=== PATIENT | male | born 1975 | race Caucasian/White ===

== ENCOUNTER 2017-04-18 17:34 | Emergency (ER) | payer SELFPAY ==
--- NOTE | 2017-04-18 19:10 | ER Document Report ---
HPI - HPI Pain Level: 5 Notes: Patient is 41-year-old male presents the ED complaining of neck stiffness and pain 2 days. Patient states that he feels a tightness in his neck along with occasional sharp pains. Twisting his neck worsens his discomfort. The pain does not radiate otherwise. Patient states he does lift heavy objects at work every day for the last 6 months. He does not know of any one incident that caused the pain initially he began noticing some pain in his neck on his drive home Monday afternoon.. Patient states that he has been having trouble sleeping because of the pain in his neck. He is still able to eat and drink without any difficulties otherwise. Patient states that he does have hypertension and diabetes which he takes metformin and lisinopril 4. Patient states he is a former smoker but denies any drug use. Patient denies any recent procedures/ injections into the neck or back. Patient denies any numbness/tingling, saddle anesthesia, muscle paralysis/weakness, urinary retention, or loss of control of bowel or bladder. He denies any fever, headache, URI, ear pain, tinnitus, dizziness, sore throat, dysphagia, chest pain, palpitations, syncope, cough, wheeze, shortness of breath, abdominal pain, nausea/vomiting/diarrhea, dysuria, hematuria, or rash. Denies any recent travel, sick contacts, recent illness. Patient states immunizations are up-to-date. - ROS Notes: REVIEW OF SYSTEMS: CONSTITUTIONAL : Denies fever, chills, or sweats. Denies recent illness. EENT: Denies eye, ear, throat, or mouth pain or symptoms. Denies nasal or sinus congestion or discharge. Denies throat, tongue, or mouth swelling or difficulty swallowing. CARDIOVASCULAR: Denies chest pain. Denies palpitations or racing or irregular heart beat. Denies ankle edema. RESPIRATORY: Denies cough, cold, or chest congestion. Denies shortness of breath, difficulty breathing, or wheezing. GASTROINTESTINAL: Denies abdominal pain or distention. Denies nausea, vomiting , or diarrhea. Denies blood in vomitus, stools, or per rectum. Denies black, tarry stools. Denies constipation. GENITOURINARY: Denies difficulty urinating, painful urination, burning, frequency, blood in urine, or discharge. MUSCULOSKELETAL: see hpi SKIN: Denies rash, lesions or sores. NEUROLOGICAL: Denies confusion or altered mental status. Denies passing out or loss of consciousness. Denies dizziness or lightheadedness. Denies headache. Denies weakness or paralysis or loss of use of either side. Denies problems with gait or speech. Denies sensory loss, numbness, or tingling. Denies seizures. PSYCHIATRIC: Denies anxiety or stress. Denies depression, suicidal ideation, or homicidal ideation. ALL OTHER SYSTEMS REVIEWED AND NEGATIVE. Dictation was performed using [employer] voice recognition software - DERM Skin Color: Normal Past Medical History - Social History Smoking Status: Former Smoker Family History: DM, Hypertension Patient has suicidal ideation: No Patient has homicidal ideation: No - Past Medical History Cardiac Medical History: Reports: Hx Hypercholesterolemia, Hx Hypertension Endocrine Medical History: Reports: Hx Diabetes Mellitus Type 1, Hx Diabetes Mellitus Type 2 Renal/ Medical History: Reports: Hx Kidney Stones. Denies: Hx Peritoneal Dialysis Psychiatric Medical History: Denies: Hx Depression Past Surgical History: Reports: Hx Cardiac Surgery - as an for "3 holes in heart", Hx Herniorrhaphy - Immunizations Hx Diphtheria, Pertussis, Tetanus Vaccination: No Vertical Provider Document - CONSTITUTIONAL Agree With Documented VS: Yes Notes: PHYSICAL EXAMINATION: GENERAL: Well-appearing, well-nourished and in no acute distress. HEAD: Atraumatic, normocephalic. Non-tender. EYES: Pupils equal round and reactive to light, extraocular movements intact, sclera anicteric, conjunctiva are normal. ENT: EAC clear b/l. TM's intact b/l without erythema, fluid, or perforation. Nares patent and without discharge. oropharynx clear without exudates. No tonsilar hypertrophy or erythema. Moist mucous membranes. No sinus tenderness. uvula midline. No palatine shift or tongue protrusion. NECK:supple without lymphadenopathy. +LROM to rotation, flexion, extension. + spasming and mild torticollis to the left levator scapula > Rt. + tenderness to the trapezius mm as well with spasming. No vertebral point tenderness. Kernig/brudzinski negative. No carotid bruits b/l. LUNGS: Breath sounds clear to auscultation bilaterally and equal. No wheezes rales or rhonchi. HEART: Regular rate and rhythm without murmurs, rubs, gallops. ABDOMEN: Soft, nontender, nondistended abdomen. No guarding, no rebound. No masses appreciated. Normal bowel sounds present. No CVA tenderness bilaterally. Musculoskeletal: UE's b/l: FROM to passive/active. Strength 5+/5. No focal deficits Extremities: No cyanosis, clubbing, or edema b/l. Peripheral pulses 2+. Capillary refill less than 3 seconds. NEUROLOGICAL: Cranial nerves grossly intact. Normal speech, normal gait. Normal sensory, motor exams. reflexes 2+ b/l. PSYCH: Normal mood, normal affect. SKIN: Warm, Dry, normal turgor, no rashes or lesions noted. - INFECTION CONTROL TRAVEL OUTSIDE OF THE [place] IN LAST 30 DAYS: No - RESPIRATORY O2 Sat by Pulse Oximetry: 99 Course - Re-evaluation Re-evalutation: 04/18/17 19:30 Heat pack applied to the neck and Toradol 15mg given IM 04/18/17 20:05 Patient is an afebrile, well-hydrated, 41-year-old male who presents to the ED with neck stiffness/muscle spasm, mild torticollis of the left side based on H& P today. Vitals are stable despite elevated blood pressure. PE otherwise unremarkable for any focal neurological deficits. Low suspicion for any acute glaucoma, temporal arteritis, meningitis, intracranial hemorrhage, ischemic stroke, meningitis, fracture, expanding/ruptured AAA, cauda equina syndrome, epidural mass lesion/abscess, herniated disc causing severe spinal stenosis, peritonsilar/pharyngeal abscess, other deep space infection, respiratory compromise, or other systemic infection at this time. Patient is aware that his condition can change from initial presentation and that he needs monitor symptoms closely for any acute changes. Patient H&P presents with low risk factors as he is under the age of 60, no recent procedures to the back, no illicit drug use, no illness/fever/injury. Patient's primary risk factor to be diabetes which is controlled with metformin per patient. Patient states that his symptoms did improve after the Toradol and heat pack placement. Sarahi Beckford NP also evaluate the patient and agreed with the musculoskeletal etiology. I will send him home with Voltaren gel, meloxicam, and baclofen to use as directed. Conservative measures otherwise for symptoms. Recheck with his PCM in 2-3 days. Return to ED with any worsening/concerning symptoms otherwise as reviewed in discharge. Patient is in agreement. - Vital Signs Vital signs: Temp Pulse Resp BP Pulse Ox 98.0 F 84 19 181/110 H 99 04/18/17 17:46 04/18/17 17:46 04/18/17 17:46 04/18/17 17:46 04/18/17 17:46 Discharge - Discharge Clinical Impression: Muscle spasm, Torticollis Condition: Stable Disposition: HOME, SELF-CARE Additional Instructions: Rest, Ice Tylenol/ibuprofen as needed Light stretches daily Strength exercises as able Moist heat and massage may help F/u with your PCP in 2-3 days for a recheck Consider consult(s) with Orthopedics/physical therapy/chiropractics for ongoing/ worsening symptoms Return to the ED with any worsening symptoms and/or development of fever, headache, chest pain, palpitations, syncope, shortness of breath, trouble breathing, abdominal pain, n/v/d, blood in stool/urine, loss of control of bowel /bladder, urinary retention, muscle weakness/paralysis, numbness/tingling, or other worsening symptoms that are concerning to you. Prescriptions: Baclofen [Baclofen 10 mg Tablet] 5 mg PO BID PRN #10 tablet PRN Reason: Diclofenac Sodium [Voltaren] 4 gm TP QID PRN #100 gel..gm. PRN Reason: Meloxicam 7.5 mg PO BID PRN #20 tablet PRN Reason: Forms: Elevated Blood Pressure Referrals: [facility] [Provider Group] - Follow up as needed
[2017-04-18] MEDS ORDERED: KETOROLAC TROMETHAMINE INJ/PF 30 MG/1 ML SDV IM ONE (19:15)
[2017-04-18 20:17] VITALS: BP 153/106
== END 2017-04-18 20:17 | disposition home or self-care (01) ==
LOC: ER 17:34
DX: M43.6 Torticollis (principal); M54.2 Cervicalgia; M62.838 Other muscle spasm; M62.830 Muscle spasm of back; E11.9 Type 2 diabetes mellitus without complications; I10 Essential (primary) hypertension; Z79.899 Other long term (current) drug therapy; Z79.84 Long term (current) use of oral hypoglycemic drugs; Z87.891 Personal history of nicotine dependence
CPT/HCPCS: 99283; 96372; J1885

== ENCOUNTER 2017-06-08 20:23 | Emergency (ER) | payer SELFPAY ==
[2017-06-08 22:07] LABS: ABSOLUTE BASOPHILS # (AUTO) 0.1 10^3/uL (0.0-0.2); ABSOLUTE EOSINOPHILS # (AUTO) 0.4 10^3/uL (0.0-0.6); ABSOLUTE LYMPHOCYTES (AUTO) 1.5 10^3/uL (0.5-4.7); ABSOLUTE MONOCYTES (AUTO) 0.7 10^3/uL (0.1-1.4); ABSOLUTE NEUT (AUTO) 6.1 10^3/uL (1.7-8.2); BASOPHILS % (AUTO) 0.7 % (0-2); EOSINOPHILS % (AUTO) 4.5 % (0-6); HEMATOCRIT 40.1 % (37.9-51.0); HEMOGLOBIN 14.2 g/dL (13.5-17.0); HGB HCT DIFFERENCE 2.5; LYMPHOCYTES % (AUTO) 17.5 % (13-45); MEAN CORPUSCULAR HEMOGLOBIN 29.1 pg (27.0-33.4); MEAN CORPUSCULAR HGB CONC 35.3 g/dL (32.0-36.0); MEAN CORPUSCULAR VOLUME 82 fl (80-97); MONOCYTES % (AUTO) 7.9 % (3-13); RED BLOOD COUNT 4.88 10^6/uL (4.35-5.55); RED CELL DISTRIBUTION WIDTH 14.8 % (11.5-14.0); SEGMENTED NEUTROPHILS % (AUTO) 69.4 % (42-78); WHITE BLOOD COUNT 8.7 10^3/uL (4.0-10.5)
[2017-06-08 22:25] LABS: ALANINE AMINOTRANSFERASE 35 U/L (21-72); ALBUMIN 3.9 g/dL (3.5-5.0); ALKALINE PHOSPHATASE 137 U/L (38-126); ANION GAP 12 (5-19); ASPARTATE AMINO TRANSFERASE 20 U/L (17-59); BILIRUBIN,DIRECT 0.4 mg/dL (0.0-0.4); BILIRUBIN,TOTAL 0.5 mg/dL (0.2-1.3); BLOOD UREA NITROGEN 23 mg/dL (7-20); CALCIUM 9.5 mg/dL (8.4-10.2); CARBON DIOXIDE 23 mmol/L (22-30); CHLORIDE 101 mmol/L (98-107); CREATININE RESULT 1.58 mg/dL (0.52-1.25); GLUCOSE 307 mg/dL (75-110); POTASSIUM 4.3 mmol/L (3.6-5.0); SODIUM 136.2 mmol/L (137-145); TOTAL PROTEIN 7.2 g/dL (6.3-8.2)
[2017-06-08 22:36] LABS: APPEARANCE,URINE CLEAR; BILIRUBIN,URINE NEGATIVE (NEGATIVE); GLUCOSE, URINE >=500 mg/dL (NEGATIVE); KETONES,URINE NEGATIVE (NEGATIVE); LEUKOCYTE ESTERASE,URINE NEGATIVE (NEGATIVE); NITRITE,URINE NEGATIVE (NEGATIVE); PROTEIN,URINE >=500 mg/dL (NEGATIVE); URINE SPECIFIC GRAVITY 1.029; UROBILINOGEN,URINE NEGATIVE mg/dL (<2.0)
[2017-06-08] MEDS ORDERED: METFORMIN HCL 500 MG TABLET PO ONE (23:47)
[2017-06-08] MEDS ORDERED: LISINOPRIL 10 MG TABLET PO ONE (23:47)
[2017-06-08] MEDS ORDERED: CEPHALEXIN 500 MG CAPSULE PO ONE (23:51)
--- NOTE | 2017-06-08 23:56 | ER Document Report ---
ED GI/ - General Chief Complaint: Flank Pain Stated Complaint: BACK PAIN,MOUTH PAIN Time Seen by Provider: 06/08/17 22:18 Notes: Patient is complaining of pain in the left upper lumbar back region for the past 3 days. 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 He says the pain is worse when he bends over or when he is walking a lot. Pain is relatively constant although it waxes and wanes at times. Had some diarrhea about 3 days ago for 1 day. No nausea or vomiting. Has had a slight cough with some wheezing. Cough causes him to have rib pains. Says he has had a history of a kidney stone in the past, but this pain does not feel like that pain at that time. Denies fever. Patient has a history of high blood sugar and high blood pressure. He is usually on lisinopril 10 mg a day and metformin 500 mg 3 times a day, but he has been out of his blood pressure medicine for a while, although he just ran out of his metformin today. He cannot afford a visit to a primary care physician. Patient also is complaining of painful swelling of the right lower gum next to a very large tooth with a large that appears to have broken off pretty much at the gumline. This is the adjacent gum is swollen and tender. No drainage. TRAVEL OUTSIDE OF THE [place] IN LAST 30 DAYS: No - Related Data Allergies/Adverse Reactions: Penicillins Allergy (Verified 04/18/17 17:46) Past Medical History - Social History Smoking Status: Former Smoker Chew tobacco use (# tins/day): No Frequency of alcohol use: None Drug Abuse: None Family History: Reviewed & Not Pertinent, DM, Hypertension Patient has suicidal ideation: No Patient has homicidal ideation: No - Past Medical History Cardiac Medical History: Reports: Hx Hypercholesterolemia, Hx Hypertension Endocrine Medical History: Reports: Hx Diabetes Mellitus Type 2 Renal/ Medical History: Reports: Hx Kidney Stones Past Surgical History: Reports: Hx Cardiac Surgery - as an for "3 holes in heart", Hx Herniorrhaphy - Immunizations Hx Diphtheria, Pertussis, Tetanus Vaccination: No Review of Systems - Review of Systems Notes: REVIEW OF SYSTEMS: CONSTITUTIONAL : Denies fever. EENT: Denies eye, ear, nose or mouth or throat pain or other symptoms. CARDIOVASCULAR: Denies chest pain. RESPIRATORY: Denies cough, chest congestion, or shortness of breath. GASTROINTESTINAL: Denies abdominal pain or nausea, vomiting, or diarrhea. GENITOURINARY: Denies difficulty or painful urinating, urinary frequency, blood in urine. MUSCULOSKELETAL: Denies back or neck pain. Denies joint pain or swelling. SKIN: Denies rash or skin lesions. NEUROLOGICAL: Denies LOC or altered mental status. Denies headache. Denies sensory loss or motor deficits. ALL OTHER SYSTEMS REVIEWED AND NEGATIVE. Physical Exam - Vital signs Vitals: Temp Pulse Resp BP Pulse Ox 98.7 F 89 16 175/110 H 97 06/08/17 21:17 06/08/17 21:17 06/08/17 21:17 06/08/17 21:17 06/08/17 21:17 Interpretation: Hypertensive - Notes Notes: PHYSICAL EXAMINATION: GENERAL: Well-appearing, in no acute distress. Blood pressure elevated but other vital signs normal. HEAD: Atraumatic, normocephalic. ENT: oropharynx clear without exudates. Moist mucous membranes. Tender gingiva around a lower right molar with a very large cavity, almost destroying the entire tooth. On the inner aspect, the tenderness of the gingiva spreads down towards the base of the tongue and there is some very slight swelling. There is nothing to suggest a peritonsillar abscess, or significant abscess of the tooth. There may be some gingival infection and I will put him on antibiotics but I do not think there is an abscess to drain at this point. NECK: Normal range of motion, supple. No significant soft tissue swelling. LUNGS: Breath sounds clear and equal bilaterally. HEART: Regular rate and rhythm without murmurs. ABDOMEN: Soft, nontender. No guarding or rebound. No masses. No bruits heard. BACK: Tender in the upper flank region on the left lumbar back. Tenderness is confined to the muscle region that left lank. EXTREMITIES: Normal range of motion without pain. NEUROLOGICAL: Normal speech, normal gait. Normal sensory, motor, and reflex exams. Awake, alert, and oriented x3. Cranial nerves normal. PSYCH: Normal mood, normal affect. SKIN: Warm, dry, no rashes. Course - Vital Signs Vital signs: Temp Pulse Resp BP Pulse Ox 98.7 F 89 16 188/127 H 96 06/08/17 21:17 06/08/17 21:17 06/08/17 21:17 06/08/17 23:30 06/08/17 23:30 - Laboratory Result Diagrams: 06/08/17 21:50 06/08/17 21:50 Laboratory results interpreted by me: 06/08/17 06/08/17 06/08/17 21:50 21:50 21:50 RDW 14.8 H Sodium 136.2 L BUN 23 H Creatinine 1.58 H Est GFR ( Amer) 59 L Est GFR (Non-Af Amer) 49 L Glucose 307 H Alkaline Phosphatase 137 H Urine Protein >=500 H Urine Glucose (UA) >=500 H Urine Blood SMALL H 06/09/17 00:36 Labs were reviewed and essentially normal. Discharge - Discharge Clinical Impression: Muscle strain of left upper back, Hypertension, Hyperglycemia, Dental infection Condition: Stable Disposition: HOME, SELF-CARE Additional Instructions: LOW BACK PAIN: Three out of every four people will have an episode of disabling back pain during their lifetime. Most commonly the pain is due to straining of the muscles and ligaments in the low back. Usual treatment includes: (1) Rest on a firm surface. Avoid lying on your stomach. (2) Ice pack the painful area. After a few days, gentle heat may be used intermittently to relax the area, or ice packs can be continued. (3) Medication may be needed -- muscle relaxers and antiinflammatory medicines are commonly used. (4) As the back improves, exercises are prescribed to strengthen the back and abdominal muscles. Your doctor will advise you on the proper care for your back at each stage in your recovery. You may be better in a few days -- or healing may take several weeks. If new symptoms of a "herniated disc" (radiation of pain, numbness, or tingling down the back of the leg or weakness in the leg) occur, you should be re-examined. Further testing may be necessary. Muscle Strain You have strained a muscle -- torn the fibers within the muscle. This often occurs with strenuous exertion, or during an injury that suddenly stretches the muscle. The seriousness of a strain varies. Some strains heal within days, others cause problems for months. X-rays cannot show a muscle strain. X-rays are taken only if symptoms suggest that a fracture could be present. The usual treatment of a muscle strain is rest and ice packs. Sometimes, a sling, splint, or crutches may be necessary to rest the muscle. The muscle can be used again once pain subsides. Severe strains require a special exercise and stretching program to prevent permanent stiffness and disability. Your doctor will advise you if this will be necessary. Call the doctor immediately if pain or swelling becomes severe, or if numbness or discoloration develop. MUSCLE RELAXERS: Muscle relaxing medications are usually prescribed for acute muscle spasm or injury to the neck and back. They are often combined with antiinflammatory pain medication for increased relief. You may stop the muscle relaxer when the pain and stiffness have improved. Start the medication again if spasms recur. Muscle relaxers may cause drowsiness, especially with the first dose. Do not operate machinery or drive while under the effects of the medication. Most muscle relaxers last up to 24 hours. Do not combine the medication with alcohol. WARM PACKS: After approximately two days, apply gentle heat (such as a heating pad or hot water bottle) for about 20 to 30 minutes about every two hours -- at least four times daily. Warmth and elevation will help you make a more rapid recovery , and will ease the pain considerably. Do not use HOT heat, and never apply heat for longer than 30 minutes. The continuous heat can invisibly damage skin and muscles -- even when no burn is seen on the surface. Damaged muscles can make you MORE sore. HIGH BLOOD PRESSURE REQUIRING TREATMENT: Your blood pressure is high. This is called "hypertension." Today's reading was 175/110 (normal is less than 140/90). Your history and exam suggest that this is not a temporary problem. You need treatment of your blood pressure. If left untreated, high blood pressure greatly increases your risk of heart attack and stroke. Please don't ignore this problem. If you have blood pressure medicine but aren't using it regularly, start taking it again. Some simple things you can do to help are: Get some aerobic exercise for at least 20 minutes on a daily basis. (See your doctor before beginning any new exercise program.) Eat a low-fat diet. Lose excess weight. Avoid salty foods and avoid adding salt to any of the foods you eat. Avoid diet pills, decongestants, "energizing" herbs, and other medicines that elevate blood pressure. There are many different medicines that treat blood pressure. If your medication causes unpleasant side effects, call your doctor. There are others you can try. Treating hypertension is a life-long investment in your health. ANGIOTENSIN CONVERTING ENZYME INHIBITOR MEDICATION: "LISS inhibitor" drugs are used to lower high blood pressure (or to reduce the "work" of the heart in patients with heart failure). These drugs block an enzyme that makes your blood vessels constrict and makes you retain salt. The result is lower blood pressure. LISS inhibitors cause few side effects. The most common side effect is a dry nagging cough. Occasionally, lightheadedness may occur while you get used to the medicine. Some patients may retain extra potassium (this is a problem if you are taking potassium supplements, potassium-containing salt substitutes, or a potassium-retaining drug such as triamterene, spironolactone, or amiloride) . If you are taking lithium, the lithium level must be rechecked after starting an LISS inhibitor. LISS inhibitors should NOT be used during . Contact the doctor or return if you develop severe lightheadedness, wheeze , weakness, palpitations or other new symptoms. HYPERGLYCEMIA (HIGH BLOOD SUGAR): You have an abnormally high blood sugar. Not all high blood sugar requires long-term treatment. High blood sugar can be due to medications, , or the stress of illness. (These cases are "borderline diabetes.") If the doctor feels your high blood sugar might resolve with time, you may not require treatment now. It's very important that you follow through, to see if the blood sugar returns to normal levels. Uncontrolled high blood sugar leads to early heart disease, strokes, nerve damage, eye damage, and kidney damage. Call the physician if there is faintness, excess sleepiness, or very rapid breathing. DIABETES: You have an abnormally high blood sugar, suspicious for diabetes. Not all high blood sugar requires long-term treatment. High blood sugar can be due to medications, , or the stress of illness. (These cases are "borderline diabetes.") If the doctor feels your high blood sugar might get better with time, you may not require treatment now. It's very important that you follow through. Uncontrolled high blood sugar leads to early heart disease, strokes, nerve damage, eye damage, and kidney damage. All diabetics should follow a diet designed to control the blood sugar. Overweight diabetics should exercise regularly and lose weight. If this is not sufficient to control the blood sugar, pills or insulin shots are necessary. Younger people who develop diabetes almost always require insulin daily. Home testing of blood sugars or urine sugar is required. Diabetic teaching is available to help you figure insulin doses and monitor the blood sugar. Call the physician if there is faintness, excess sleepiness, or very rapid breathing. If hypoglycemia (LOW blood sugar) develops, symptoms are shakiness, weakness, sweating, and confusion. In this case, you should eat or drink something with sugar at once. ORAL HYPOGLYCEMIC MEDICATION: Oral hypoglycemics are medicines that lower blood sugar in diabetics. They are not effective for younger diabetics who require insulin. Some brands are tolbutamide, Orinase, glipizide, Glucotrol, glyburide, DiaBeta, Glynase, and Micronase. Some medications can increase or decrease the effect of Diabinese. Examples are Clofibrate (Atromid-S), phenylbutazone (Butazolidin), aspirin, sulfonamides, Coumadin, allopurinol (Zyloprim), probenecid (Benemid), acetazolamide (Diamox), beta blockers, steroids, estrogens, Indocin, INH, Levothyroxine, nicotinic acid, Diflucan, Dilantin, and thiazide diuretics. Be sure your doctor knows all the medicines you take, and talk to your doctor before making any changes in your medicines. If you develop symptoms of shakiness, sweats, and lightheadedness, your blood sugar may have gone too low. Eat or drink a small amount of sweet food. If symptoms don't go away, call your doctor. Glucophage (Metformin hydrochloride) Glucophage is used to treat diabetes. It helps insulin move sugar from your blood stream into your cells. It also slows production of new blood sugar. Glucophage can be combined with another type of diabetes pill or with insulin injections. Glucophage should NOT be used by patients, true insulin-dependent (juvenile) diabetics, or those prone to acidosis (severe kidney disease, alcoholism, severe heart failure). You MUST NOT receive iodine-containing x-ray dye while taking Glucophage. The medicine must be stopped 2 days before the test. Be certain your doctor is aware you are taking Glucophage before undergoing IVP, angiograms, or other x- rays that require IV injection of dye. Glucophage commonly causes decreased appetite. Some patients may have nausea, vomiting, or diarrhea. If the side effects are severe, call your doctor. Glucophage will not cause hypoglycemia (low blood sugar) when used alone. Some patients using diabetes pills or insulin may experience symptoms of hypoglycemia (flushing, sweats, racing heart, lightheadedness). Eat or drink something sweet. Contact your doctor for further instructions. You may need to reduce the dose of insulin or of the other diabetes pill. TOOTHACHE: Your pain is due to dental decay. The tooth must be repaired in order for you to feel better. You will, therefore, be referred to a dentist. We do not have dentists on the staff at [facility]. Severe swelling or drainage around a tooth usually means a dental abscess. This also requires evaluation and treatment by the dentist, but antibiotics may be prescribed while awaiting dental treatment. You should be rechecked immediately if you develop major swelling of the face, increasing pain, a lump in the jaw or gums, headache, difficulty swallowing, or fever. Cephalexin The antibiotic you've been prescribed is a member of the cephalosporin class. This type of antibiotic covers a wide variety of infections, including those of the skin, lungs, and urinary tract. It's useful for staph infections. This antibiotic is slightly similar to the penicillin family. In rare cases , a person who is allergic to penicillin will also be allergic to this medication. If you have had a severe allergic reaction to penicillin, and have not taken this antibiotic since that time, notify your doctor. Antibiotics which cover many germs ("broad spectrum" antibiotics) are more likely to cause diarrhea or "yeast" infections. Women prone to vaginal yeast problems may suffer an attack after taking this antibiotic. In infants, oral thrush (white spots "stuck" on the cheek) or yeast diaper rash may result. See your doctor if these problems occur. Call at once if you develop itching, hives , shortness of breath, or lightheadedness. FOLLOW-UP CARE: You have been referred for follow-up care to the dentists listed below. Call the dentists office for an appointment as you were instructed or within the next two days. If you experience worsening or a significant change in your symptoms, notify the physician immediately or return to the Emergency Department at any time for re-evaluation. [facility] [address] [place], [place] mornings, by appointment [facility] [address] [place] [address] [facility] [address] [facility] [address] [facility] [place] [facility] [address] [email or web address] [address] [place] [address] Monday- 8:00am to 5:00 pm Will see patients from other [facility]. Charges based on income and family size and accepts Medicare, Medicaid, and Insurances Will pull molars [facility] [id number] Hours of Operation 8:00 am - 4:30 pm weekdays The following dental offices accept Medicaid: [facility] Dr. Mcmillan Dr. Petty Dr. Pozo Dr. Parsons Campos Panda Lutsavage, and [place] [facility] Dr. Pacheco ([place]) Dr. Serna ([place]) [facility] Drs. Bhatt and Jorge Luis ([place]) Dr. Bragg ([place]) [facility] Dr. Soler ([place]) Drs. Lundy and ([place]) Medicaid Care Line Prescriptions: Cephalexin Monohydrate [Keflex 500 mg Capsule] 500 mg PO Q8H 7 Days capsule Lisinopril 10 mg PO DAILY #30 tablet Metformin HCl [Glucophage 500 mg Tablet] 500 mg PO TID #90 tablet Methocarbamol [Robaxin 500 mg Tablet] 1,000 mg PO QID #40 tablet Forms: Return to Work
[2017-06-09 00:51] VITALS: BP 179/110
== END 2017-06-09 00:51 | disposition home or self-care (01) ==
LOC: ER 20:23
DX: S29.012A Strain of muscle and tendon of back wall of thorax, initial encounter (principal); I10 Essential (primary) hypertension; R73.9 Hyperglycemia, unspecified; K04.7 Periapical abscess without sinus; R10.9 Unspecified abdominal pain; M54.9 Dorsalgia, unspecified; K08.89 Other specified disorders of teeth and supporting structures; Z87.891 Personal history of nicotine dependence; R22.0 Localized swelling, mass and lump, head; X58.XXXA Exposure to other specified factors, initial encounter
CPT/HCPCS: 36415; 80053; 81001; 85025; 99284

== ENCOUNTER 2017-07-19 18:26 | Emergency (ER) | payer SELFPAY ==
[2017-07-19 18:35] VITALS: BP 180/117
--- NOTE | 2017-07-19 19:19 | ER Document Report ---
ED ENT - General Chief Complaint: Cold Symptoms Stated Complaint: COUGH, HEADACHE Time Seen by Provider: 07/19/17 18:43 Mode of Arrival: Ambulatory Information source: Patient Notes: 42-year-old male presents to ED for cough cold congestion headache and body aches for week. He states that the he has had some green phlegm and took Tylenol thousand milligrams this morning at 10 and 800 of ibuprofen at 1600. He has a history of blood pressure and diabetes and is run out of his high blood pressure medicine and his metformin. He states [facility]. We attempted to call [facility] to get the doses but they said he does not have any active meds there so I cannot write prescriptions that I do not know the doses for patient has been instructed to call [facility] first thing in the morning and get his prescriptions ordered as he needs to take his blood pressure medicine. TRAVEL OUTSIDE OF THE [place] IN LAST 30 DAYS: No - HPI Patient complains to provider of: Nose problem, Throat problem Onset: Last week Onset/Duration: Gradual Quality of pain: Achy Severity: Moderate Pain Level: 4 Context: Recent Illness Location of pain: Nose, Sinus, Throat Associated symptoms: Cough, Headache, Runny nose, Sinus pain, Sinus drainage, Sore throat Similar symptoms previously: Yes Recently seen / treated by doctor: No - Related Data Allergies/Adverse Reactions: Penicillins Allergy (Verified 07/19/17 18:30) Past Medical History - General Information source: Patient - Social History Smoking Status: Former Smoker Cigarette use (# per day): No Chew tobacco use (# tins/day): No Smoking Education Provided: No Frequency of alcohol use: None Drug Abuse: None 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 Lives with: Family Family History: Arthritis, CVA, DM, Hypertension, Malignancy Patient has suicidal ideation: No Patient has homicidal ideation: No - Past Medical History Cardiac Medical History: Reports: Hx Hypercholesterolemia, Hx Hypertension Endocrine Medical History: Reports: Hx Diabetes Mellitus Type 2 Renal/ Medical History: Reports: Hx Kidney Stones Malignancy Medical History: Reports None GI Medical History: Reports: None Musculoskeltal Medical History: Reports None Skin Medical History: Reports None Traumatic Medical History: Reports: None Infectious Medical History: Reports: None Past Surgical History: Reports: Hx Cardiac Surgery - as an infant for "3 holes in heart", Hx Inguinal Hernia - Immunizations Hx Diphtheria, Pertussis, Tetanus Vaccination: No Review of Systems - Review of Systems Constitutional: Recent illness EENT: Nose discharge, Sinus discharge, Throat pain Cardiovascular: No symptoms reported Respiratory: Cough Gastrointestinal: No symptoms reported Genitourinary: No symptoms reported Male Genitourinary: No symptoms reported Musculoskeletal: No symptoms reported Skin: No symptoms reported Hematologic/Lymphatic: No symptoms reported Neurological/Psychological: No symptoms reported -: Yes All other systems reviewed and negative Physical Exam - Vital signs Vitals: Temp Pulse Resp BP Pulse Ox 98.8 F 97 18 180/117 H 98 07/19/17 18:30 07/19/17 18:30 07/19/17 18:30 07/19/17 18:30 07/19/17 18:30 Interpretation: Normal - General General appearance: Appears well, Alert - HEENT Head: Normocephalic, Atraumatic Eyes: Normal Pupils: PERRL Ears: Normal External canal: Normal Tympanic membrane: Normal Sinus: Tenderness Nasal: Purulent discharge, Swelling Mouth/Lips: Normal Mucous membranes: Normal Pharynx: Post nasal drainage Neck: Normal - Respiratory Respiratory status: No respiratory distress Chest status: Nontender Breath sounds: Normal Chest palpation: Normal - Cardiovascular Rhythm: Regular Heart sounds: Normal auscultation Murmur: No - Abdominal Inspection: Normal Distension: No distension Bowel sounds: Normal Tenderness: Nontender Organomegaly: No organomegaly - Back Back: Normal, Nontender - Extremities General upper extremity: Normal inspection, Nontender, Normal color, Normal ROM , Normal temperature General lower extremity: Normal inspection, Nontender, Normal color, Normal ROM , Normal temperature, Normal weight bearing. No: Renard's sign - Neurological Neuro grossly intact: Yes Cognition: Normal Orientation: AAOx4 Darren Coma Scale Eye Opening: Spontaneous [place] Coma Scale Verbal: Oriented Darren Coma Scale Motor: Obeys Commands Darren Coma Scale Total: 15 Speech: Normal Motor strength normal: LUE, RUE, LLE, RLE Sensory: Normal - Psychological Associated symptoms: Normal affect, Normal mood - Skin Skin Temperature: Warm Skin Moisture: Dry Skin Color: Normal Course - Re-evaluation Re-evalutation: 07/19/17 19:34 Attempted to call [facility] to get medications ordered for patient for his diabetes and pressure. They do not have a list of what medications and doses he is on. Patient was instructed to call [facility] first thing in the morning to get his medications called into the pharmacy as he needs to not be off of his medications. Patient instructed to not take ibuprofen but only take Tylenol as ibuprofen can raise his blood pressure. - Vital Signs Vital signs: Temp Pulse Resp BP Pulse Ox 98.8 F 97 18 180/117 H 98 07/19/17 18:30 07/19/17 18:30 07/19/17 18:30 07/19/17 18:30 07/19/17 18:30 Discharge - Discharge Clinical Impression: URI (upper respiratory infection) Qualifiers: URI type: unspecified URI Qualified Code(s): J06.9 - Acute upper respiratory infection, unspecified Condition: Stable Disposition: HOME, SELF-CARE Instructions: Family Physicians / Practices Additional Instructions: UPPER RESPIRATORY ILLNESS: You have a viral infection of the respiratory passages -- a "cold." This common infection causes nasal congestion, drainage, and often sore throat and cough. It is highly contagious. The disease usually lasts about 10 to 14 days. There is no "cure" for the viral infection -- it must run its course. If there is a complication, such as bacterial infection in the nose, sinuses, middle ear, or bronchial tubes, antibiotics may be required. The antibiotics won't affect the virus. Drink plenty of fluids. A humidifier may help. An expectorant medication or decongestant may make you more comfortable. Use acetaminophen or ibuprofen for fever or aches. See the doctor if fever persists over two days, if there is any significant worsening of your symptoms, or if you simply fail to improve as expected. COUGH-SUPPRESSANT & EXPECTORANT MEDICATION: You are to use a cough medication as needed for relief of symptoms. This medicine is a combination of an expectorant (to make the mucous thinner and more easily "coughed up") and a cough suppressant (to reduce the frequency of coughing). The cough-suppressant medicine is related to narcotics. You may experience mild nausea and sleepiness. Some patients who are very sensitive to narcotics may have stomach pain from this medicine. Taking the medicine with food reduces these side effects. Do not drive or work with machinery until you know how this medicine affects you. The expectorant should have no side effects. Iodine-containing expectorants (such as organidin) should not be taken by persons with active thyroid disease unless approved by your doctor. Call the doctor if you develop shortness of breath, hives, rash, itching, lightheadedness, or severe nausea and vomiting. USE OF ACETAMINOPHEN (Tylenol): Acetaminophen may be taken for pain relief or fever control. It's much safer than aspirin, offering a wider range of "safe" dosages. It is safe during . Some brand names are Tylenol, Panadol, Datril, Anacin 3, Tempra, and Liquiprin. Acetaminophen can be repeated every four hours. The following are maximum recommended dosages: >89 pounds or adults 650 mg to 900 mg Acetaminophen can be repeated every four hours. Maximum dose not to exceed 4000 mg a day. Salt and soda solution 1 quart of water 1 tablespoon of salt 1 teaspoon of baking soda Mixed 3 ingredients together and boil for 1 minute Placed in a covered quart jar Use 1/2 ounce of cold solution to gargle 3 times a day FOLLOW-UP CARE: If you have been referred to a physician for follow-up care, call the physician s office for an appointment as you were instructed or within the next two days. If you experience worsening or a significant change in your symptoms, notify the physician immediately or return to the Emergency Department at any time for re-evaluation. Forms: Elevated Blood Pressure, Return to Work
== END 2017-07-19 19:29 | disposition home or self-care (01) ==
LOC: ER 18:26
DX: J06.9 Acute upper respiratory infection, unspecified (principal); R05 Cough; R51 Headache; R09.81 Nasal congestion; M79.1 Myalgia; Z87.891 Personal history of nicotine dependence
CPT/HCPCS: 99283

== ENCOUNTER 2017-09-18 08:24 | Observation (INO) | payer SELFPAY ==
--- NOTE | 2017-09-18 08:50 | ER Document Report ---
ED General - General Chief Complaint: Vomiting Stated Complaint: VOMITING Time Seen by Provider: 09/18/17 08:40 TRAVEL OUTSIDE OF THE [place] IN LAST 30 DAYS: No - HPI Context: 42-year-old male history of diabetes, hypertension and hyperlipidemia presents today with complaints of coughing, nausea vomiting diarrhea and left lower abdominal pain started last night. Patient states that he ate a potato salad and noticed he was having diarrhea now or later. Patient is noncompliant with his medications, has not seen a PCP in over a year. Denies any fevers or chills. Reports subtle chest pain. Reports pain is diffuse but worse than left lower quadrant. Pain is 6 out of 10, sharp and throbbing. Denies any trauma to abdomen. Reports left flank pain, history of renal calculi. Has not tried any [id number] medications. Worse with time, nothing is better. Patient states he been on his blood pressure for "a while". Denies any rashes. - Related Data Allergies/Adverse Reactions: Penicillins Allergy (Verified 09/18/17 08:26) Past Medical History - General Information source: Patient - Social History Smoking Status: Current Every Day Smoker Family History: Arthritis, CVA, DM, Hypertension, Malignancy - Past Medical History Cardiac Medical History: Reports: Hx Hypercholesterolemia, Hx Hypertension Endocrine Medical History: Reports: Hx Diabetes Mellitus Type 1, Hx Diabetes Mellitus Type 2 Renal/ Medical History: Reports: Hx Kidney Stones. Denies: Hx Peritoneal Dialysis Psychiatric Medical History: Denies: Hx Depression Past Surgical History: Reports: Hx Cardiac Surgery - as an infant for "3 holes in heart", Hx Herniorrhaphy, Hx Inguinal Hernia - Immunizations Hx Diphtheria, Pertussis, Tetanus Vaccination: No Review of Systems - Review of Systems Constitutional: See HPI EENT: No symptoms reported Cardiovascular: Chest pain Respiratory: No symptoms reported, Cough Gastrointestinal: No symptoms reported, See HPI, Abdominal pain, Diarrhea, Nausea, Vomiting, Poor fluid intake. denies: Abdomen distended, Constipation, Blood streaked bowels, Blood in vomit, Black stools, Rectal bleeding, Last bowel movement, Fecal incontinence Genitourinary: No symptoms reported, Flank pain Male Genitourinary: No symptoms reported Musculoskeletal: No symptoms reported Skin: No symptoms reported Hematologic/Lymphatic: No symptoms reported Neurological/Psychological: No symptoms reported -: Yes All other systems reviewed and negative Physical Exam - Vital signs Vitals: Temp Pulse Resp BP Pulse Ox 98.3 F 108 H 16 178/123 H 98 09/18/17 08:29 09/18/17 08:29 09/18/17 08:29 09/18/17 08:29 09/18/17 08:29 Interpretation: Normal - General In distress: None - HEENT Head: Open wounds - Respiratory Respiratory status: No respiratory distress Chest status: Nontender Breath sounds: Normal Chest palpation: Normal - Cardiovascular Rhythm: Tachycardia Heart sounds: Normal auscultation Murmur: No Normal capillary refill: Yes - Abdominal Inspection: Normal Tenderness: Tender - LLQ mostly, but noted diffusee abd pain - Back Back: Normal, CVA tenderness - on left - Neurological Neuro grossly intact: Yes Cognition: Normal - Psychological Associated symptoms: Normal affect - Skin Skin Temperature: Warm Skin Moisture: Dry Skin Color: Normal Course - Re-evaluation Re-evalutation: consulted with Dr. Lopez about admission for leukocytosis, acute renal failure with tachycardia. Also patient has been noncompliant with medications as he has not had a primary care provider in over a year. Will admit inpatient on telemetry to manage acute renal failure and further investigate source of leukocytosis. 09/18/17 12:34 - Vital Signs Vital signs: Temp Pulse Resp BP Pulse Ox 98.3 F 107 H 16 151/95 H 98 09/18/17 08:29 09/18/17 09:55 09/18/17 08:29 09/18/17 09:55 09/18/17 08:29 - Laboratory Result Diagrams: 09/18/17 09:20 09/18/17 10:49 Laboratory results interpreted by me: 09/18/17 09/18/17 09/18/17 08:55 09:20 10:49 WBC 18.0 H RDW 14.6 H Seg Neuts % (Manual) 91 H Band Neutrophils % 2 L Lymphocytes % (Manual) 5 L Monocytes % (Manual) 2 L Abs Neuts (Manual) 16.7 H BUN 26 H Creatinine 1.60 H Est GFR ( Amer) 58 L Est GFR (Non-Af Amer) 48 L Glucose 204 H Creatine Kinase 181 H Urine Protein >=500 H Urine Glucose (UA) >=500 H Urine Blood SMALL H - Diagnostic Exam Abdominal/Pelvis Type of test: CT scan without contrast - nad per rad Findings: Nml/NAD - Noted renal calculi that were nonobstructive, no hydronephrosis seen bilaterally - EKG Interpretation by Me Rate: Tachycardia Rhythm: NSR Discharge - Discharge Clinical Impression: ARF (acute renal failure) Qualifiers: Acute renal failure type: unspecified Qualified Code(s): N17.9 - Acute kidney failure, unspecified Condition: Stable Disposition: ADMITTED INPATIENT Admitting Provider: Hospitalist - katey Unit Admitted: Telemetry Additional Instructions: pt is admitted
[2017-09-18] MEDS ORDERED: NORMAL SALINE 1000 ML 1,000 ML IV PRN (08:52)
[2017-09-18] MEDS ORDERED: ONDANSETRON HCL INJ/PF 4 MG/2 ML SDV IV ONE (08:54)
[2017-09-18] MEDS ORDERED: HYDRALAZINE HCL INJ/PF 20 MG/1 ML SDV IV ONE (08:54)
[2017-09-18 09:22] LABS: APPEARANCE,URINE SLIGHTLY-CLOUDY; BILIRUBIN,URINE NEGATIVE (NEGATIVE); GLUCOSE, URINE >=500 mg/dL (NEGATIVE); KETONES,URINE NEGATIVE (NEGATIVE); LEUKOCYTE ESTERASE,URINE NEGATIVE (NEGATIVE); NITRITE,URINE NEGATIVE (NEGATIVE); PROTEIN,URINE >=500 mg/dL (NEGATIVE); URINE SPECIFIC GRAVITY 1.028; UROBILINOGEN,URINE NEGATIVE mg/dL (<2.0)
--- NOTE | 2017-09-18 09:40 | RADIOLOGY REPORT (SQ) ---
EXAM DESCRIPTION: CHEST PA/LAT COMPLETED DATE/TIME: 09/18/2017 8:59 am REASON FOR STUDY: HTN, CP COMPARISON: Two-view chest 10/26/2014 EXAM PARAMETERS: NUMBER OF VIEWS: two views TECHNIQUE: Digital Frontal and Lateral radiographic views of the chest acquired. RADIATION DOSE: NA LIMITATIONS: none FINDINGS: LUNGS AND PLEURA: No opacities, masses or pneumothorax. No pleural effusion. MEDIASTINUM AND HILAR STRUCTURES: No masses or contour abnormalities. HEART AND VASCULAR STRUCTURES: Heart normal size. No evidence for failure. BONES: No acute findings. HARDWARE: None in the chest. OTHER: No other significant finding. IMPRESSION: NO SIGNIFICANT RADIOGRAPHIC FINDING IN THE CHEST. TECHNICAL DOCUMENTATION: JOB ID: [id number] [employer]- All Rights Reserved
[2017-09-18 09:44] LABS: HEMATOCRIT 43.7 % (37.9-51.0); HEMOGLOBIN 15.3 g/dL (13.5-17.0); HGB HCT DIFFERENCE 2.2; MEAN CORPUSCULAR HEMOGLOBIN 28.2 pg (27.0-33.4); MEAN CORPUSCULAR HGB CONC 35.1 g/dL (32.0-36.0); MEAN CORPUSCULAR VOLUME 81 fl (80-97); RED BLOOD COUNT 5.43 10^6/uL (4.35-5.55); RED CELL DISTRIBUTION WIDTH 14.6 % (11.5-14.0)
--- NOTE | 2017-09-18 10:10 | RADIOLOGY REPORT (SQ) ---
EXAM DESCRIPTION: CT ABD/PELVIS NO ORAL OR IV COMPLETED DATE/TIME: 09/18/2017 9:54 am REASON FOR STUDY: L sided abd pain, +v/d, +left flank pain, hx stone COMPARISON: CT abdomen pelvis 08/16/2015 Abdominal ultrasound 06/30/2016 TECHNIQUE: CT scan of the abdomen and pelvis performed without intravenous or oral contrast. Images reviewed with lung, soft tissue, and bone windows. Reconstructed coronal and sagittal MPR images revi ewed. All images stored on PACS. All CT scanners at this facility use dose modulation, iterative reconstruction, and/or weight based d osing when appropriate to reduce radiation dose to as low as reasonably achievable (ALARA). [facility]: Dose Right [facility]: CareDose [facility]: Dose Right [facility]: Teradose 4D [facility]: Clarity RADIATION DOSE: CT Rad equipment meets quality standard of care and radiation dose reduction techniq ues were employed. CTDIvol: 15.4 mGy. DLP: 891 mGy-cm.mGy. LIMITATIONS: None. FINDINGS: LOWER CHEST: No significant findings. No nodules or infiltrates. NON-CONTRASTED LIVER, SPLEEN, ADRENALS: Evaluation limited by lack of IV contrast. No identified sign ificant masses. Fatty liver with focal gallbladder fossa sparing PANCREAS: No masses. No peripancreatic inflammatory changes. GALLBLADDER: No identified stones by CT criteria. No inflammatory changes to suggest cholecystitis. RIGHT KIDNEY AND URETER: No suspicious masses. Assessment limited by lack of IV contrast. There are multiple less than 5 mm intrarenal nonobstructive stones. No ureteral calculi. No hydronephrosis or hydroureter. LEFT KIDNEY AND URETER: No suspicious masses. Assessment limited by lack of IV contrast. There are multiple less than 5 mm intrarenal nonobstructive stones. No ureteral calculi. No hydronephrosis o r hydroureter. AORTA AND RETROPERITONEUM: No aneurysm. No retroperitoneal masses or adenopathy. BOWEL AND PERITONEAL CAVITY: No obvious masses or inflammatory changes. No free fluid. APPENDIX: Normal. PELVIS, BLADDER, AND ABDOMINAL WALL:No abnormal masses. No free fluid. Bladder normal. No calculi in the distal right or left ureter. No bladder stones. Tiny fat containing umbilical hernia BONES: No significant findings. OTHER: No other significant finding. IMPRESSION: No CT evidence of obstructive urinary calculi. No hydronephrosis or hydroureter. Multiple intrarenal nonobstructive stones bilaterally. No ureteral calculi. Fatty liver COMMENT: Quality ID # [id number]: Final reports with documentation of one or more dose reduction techniques (e.g., Automated exposure control, adjustment of the mA and/or kV according to patient size, use of iterative reconstruction technique) TECHNICAL DOCUMENTATION: JOB ID: [id number] [employer]- All Rights Reserved
[2017-09-18 10:21] LABS: BAND NEUTROPHILS % (MANUAL) 2 % (3-5); BASOPHILS % (MANUAL) 0 % (0-2); EOSINOPHILS % (MANUAL) 0 % (0-6); LYMPHOCYTES % (MANUAL) 5 % (13-45); TOTAL CELLS COUNTED 100
[2017-09-18 10:22] LABS: ANISOCYTOSIS SLIGHT; TOXIC GRANULATION SLIGHT; TOXIC VACUOLATION PRESENT
[2017-09-18] MEDS ORDERED: ACETAMINOPHEN 325 MG TABLET PO ONE (10:53)
[2017-09-18 11:30] LABS: ALANINE AMINOTRANSFERASE 47 U/L (21-72); ALKALINE PHOSPHATASE 115 U/L (38-126); ANION GAP 11 (5-19); ASPARTATE AMINO TRANSFERASE 24 U/L (17-59); BILIRUBIN,DIRECT 0.2 mg/dL (0.0-0.4); BILIRUBIN,TOTAL 0.5 mg/dL (0.2-1.3); BLOOD UREA NITROGEN 26 mg/dL (7-20); CARBON DIOXIDE 23 mmol/L (22-30); CHLORIDE 106 mmol/L (98-107); CREATINE KINASE 181 U/L (55-170); GLUCOSE 204 mg/dL (75-110); LIPASE 137.8 U/L (23-300); POTASSIUM 4.7 mmol/L (3.6-5.0); SODIUM 140.1 mmol/L (137-145); TOTAL PROTEIN 7.2 g/dL (6.3-8.2)
--- NOTE | 2017-09-18 13:01 | EKG REPORT ---
SEVERITY:- ABNORMAL ECG - SINUS TACHYCARDIA LEFT VENTRICULAR HYPERTROPHY BORDERLINE PROLONGED QT INTERVAL : Confirmed by: Henrik Finnegan MD 18-Sep-2017 13:00:39
[2017-09-18] MEDS ORDERED: NORMAL SALINE 1000 ML 1,000 ML IV ONE (13:26)
[2017-09-18] MEDS ORDERED: ENOXAPARIN SODIUM INJ 40 MG/0.4 ML DISP.SYRIN SUBCUT ONE (14:30)
[2017-09-18] MEDS ORDERED: INFLUENZA ADLT QUAD (36MOS+) 2017-18 VAC 0.5 ML SYR IM PRN (14:33)
[2017-09-18] MEDS ORDERED: GLUCAGON,HUMAN RECOMB 1 MG INJ IM PRN (16:03)
[2017-09-18] MEDS ORDERED: DEXTROSE 40% GEL 15 GM TUBE PO PRN ×2 (16:03)
[2017-09-18] MEDS ORDERED: DEXTROSE 50%-WATER 25 GM/50 ML DISP.SYRIN IV PRN ×2 (16:03)
[2017-09-18] MEDS ORDERED: HYDRALAZINE HCL INJ/PF 20 MG/1 ML SDV IV PRN (16:04)
[2017-09-18] MEDS ORDERED: ACETAMINOPHEN 325 MG TABLET PO PRN (16:37)
[2017-09-18] MEDS: TRAMADOL HCL 50 MG TABLET PO PRN (17:03)
[2017-09-18] MEDS: INSULIN REG, HUMAN 100 UNIT/ML 3 ML VIAL (PYX) SUBCUT PRN ×2 (17:37→21:49)
--- NOTE | 2017-09-18 17:50 | PDOC H&P ---
History of Present Illness Admission Date/PCP: 09/18/17 12:43 History of Present Illness: ISA LINDQUIST is a 42 year old male with a past medical history of diabetes, dyslipidemia, and hypertension who presents to the service with nausea vomiting and diarrhea for 24 hours. The patient states he started throwing up this morning. The diarrhea has been going on since yesterday. He has a sick daughter at home who also has diarrhea. He denies any blood in the emesis or in the stool. He denies any chest pain or shortness of breath. He did have some abdominal pain before he came in but this seems to have resolved. He complains of back pain and left flank pain. He is given ice chips down in the ED and feels that he is tolerating that okay. Thus far in the emergency room his received a 1 L bolus as well as antiemetics. The patient also received a dose of hydralazine to control his blood pressure. Right now the bedside the patient feels a little bit better now that he is not throwing up. He feels confident that he could tolerate sips of water. Past Medical History Cardiac Medical History: Reports: Hyperlipidema, Hypertension Endocrine Medical History: Reports: Diabetes Mellitus Type 1, Diabetes Mellitus Type 2 Past Surgical History Past Surgical History: Reports: Herniorrhaphy Social History Information Source: Patient Lives with: Family Smoking Status: Former Smoker - The patient quit smoking 20 years ago. When he was smoking he only smoked for 3 years. Frequency of Alcohol Use: Occasional - The patient has alcohol on the holidays. Hx Recreational Drug Use: No Drugs: None Hx Prescription Drug Abuse: No - Advance Directive Resuscitation Status: Full Code Family History Family History: Arthritis, CVA, DM, Hypertension, Malignancy Parental Family History Reviewed: Yes Children Family History Reviewed: Yes Sibling(s) Family History Reviewed.: Yes Medication/Allergy Home Medications: Hydrochlorothiazide [Hydrodiuril 12.5 mg Capsule] 12.5 mg PO DAILY 09/18/17 Lisinopril [Prinivil 10 mg Tablet] 10 mg PO DAILY 09/18/17 Metformin HCl [Glucophage 500 mg Tablet] 500 mg PO TID 09/18/17 Allergies/Adverse Reactions: Penicillins Allergy (Verified 09/18/17 08:26) Review of Systems Review of Systems: Review of systems as per HPI. In addition to this the patient denies any lack of appetite, fevers, chills, blood in the urine, coughing up blood, dysuria, weight changes. Physical Exam Vital Signs: Temp Pulse Resp BP Pulse Ox 98.3 F 107 H 29 H 147/103 H 98 09/18/17 08:29 09/18/17 09:55 09/18/17 13:01 09/18/17 13:00 09/18/17 13:01 GENERAL: This is a well-developed and nourished appearing obese male resting in bed currently in no acute distress. HEENT: Normocephalic atraumatic. Trachea is midline. Dry mucous membranes. Mallampati 3. Sclera are anicteric. HEART: Tachycardic. No murmurs rubs or gallops. LUNGS: Clear to auscultation bilaterally with equal rise and fall of the chest. ABDOMEN: Soft, nontender, nondistended with normoactive bowel sounds EXTREMETIES: No clubbing, cyanosis or edema. 2+ peripheral pulses bilaterally. 5 out of 5 in both the upper and lower extremities bilaterally. NEURO: Awake, alert and oriented 3. Cranial nerves II through XII are specifically intact. The patient is not ataxic. He has a steady gait. Results Impressions: Chest X-Ray 09/18/17 08:53 IMPRESSION: NO SIGNIFICANT RADIOGRAPHIC FINDING IN THE CHEST. Abdomen/Pelvis CT 09/18/17 09:35 IMPRESSION: No CT evidence of obstructive urinary calculi. No hydronephrosis or hydroureter. Multiple intrarenal nonobstructive stones bilaterally. No ureteral calculi. Fatty liver Assessment & Plan - Diagnosis (1) Gastroenteritis Is this a current diagnosis for this admission?: Yes Plan: Patient likely has a viral gastroenteritis. He has a sick daughter at home with diarrhea. Nausea and vomiting seems to have subsided. Continue supportive care with IV fluids. Tylenol for flank and back pain from retching. (2) Hypertension Qualifiers: Hypertension type: essential hypertension Qualified Code(s): I10 - Essential (primary) hypertension Is this a current diagnosis for this admission?: Yes Plan: Continue home medications for blood pressure control. As needed hydralazine as needed. (3) ARF (acute renal failure) Qualifiers: Acute renal failure type: unspecified Qualified Code(s): N17.9 - Acute kidney failure, unspecified Is this a current diagnosis for this admission?: Yes Plan: Secondary to acute dehydration from nausea vomiting and diarrhea. Continue IV fluids on the floor at a rate of 1 25 cc/h. The patient may have a clear liquid diet and advance as tolerated. (4) Diabetes Is this a current diagnosis for this admission?: Yes Plan: Hold metformin. Use sliding scale insulin with before meals and at bedtime blood sugar checks. ADA diet as tolerated. (5) Hyperlipidemia Is this a current diagnosis for this admission?: Yes - Time Time Spent: 30 to 50 Minutes Anticipated discharge: Home Within: within 24 hours
[2017-09-18] MEDS ORDERED: ONDANSETRON HCL INJ/PF 4 MG/2 ML SDV IV PRN (20:11)
[2017-09-19] MEDS: TRAMADOL HCL 50 MG TABLET PO PRN ×2 (03:40→11:04)
[2017-09-19 07:12] LABS: HEMATOCRIT 39.8 % (37.9-51.0); HGB HCT DIFFERENCE 2.2; MEAN CORPUSCULAR HEMOGLOBIN 28.4 pg (27.0-33.4); MEAN CORPUSCULAR HGB CONC 35.1 g/dL (32.0-36.0); MEAN CORPUSCULAR VOLUME 81 fl (80-97); RED BLOOD COUNT 4.92 10^6/uL (4.35-5.55); WHITE BLOOD COUNT 10.8 10^3/uL (4.0-10.5)
[2017-09-19 07:33] LABS: ANION GAP 12 (5-19); BLOOD UREA NITROGEN 18 mg/dL (7-20); CARBON DIOXIDE 22 mmol/L (22-30); CHLORIDE 103 mmol/L (98-107); GLUCOSE 160 mg/dL (75-110); MAGNESIUM 1.5 mg/dL (1.6-2.3); SODIUM 136.5 mmol/L (137-145)
--- NOTE | 2017-09-19 08:52 | Physician Advisory Note ---
Physician Advisor ProgressNote .: Pursuant to the plan for [facility], I have reviewed the medical record for this patient. Physician Advisor Statement: Nice documentation of ARF, likely cause of N/V/D. Status: Appropriately brought in as Outpt Obs for N/V/D/ARF/dehyd/GE. After 1 night of IVF, antiemetics, etc., Cr down to 1.4. Cr has been 1.0-1.1 in 2016. If pt is still felt to be in ARF, or other ongoing clinical concerns, & still unable to safely go home later today, it could be appropriate to change to Inpatient status. [facility]
[2017-09-19] MEDS ORDERED: LISINOPRIL 10 MG TABLET PO SCH (10:00)
[2017-09-19] MEDS ORDERED: ENOXAPARIN SODIUM INJ 40 MG/0.4 ML DISP.SYRIN SUBCUT SCH (10:00)
[2017-09-19] MEDS ORDERED: MAGNESIUM SULFATE/D5W 1 GM/100 ML RTUPB IV ONE (14:00)
[2017-09-19] MEDS ORDERED: METOPROLOL TARTRATE 50 MG TABLET ONE (14:12)
[2017-09-19] MEDS ORDERED: METOPROLOL SUCCINATE 25 MG TAB.SR.24H PO ONE (14:30)
[2017-09-19] MEDS: INSULIN REG, HUMAN 100 UNIT/ML 3 ML VIAL (PYX) SUBCUT PRN (14:30)
--- NOTE | 2017-09-19 16:37 | PDOC DISCHARGE SUMMARY ---
General - Admit/Disc Date/PCP Admission Date/Primary Care Provider: 09/18/17 12:43 Discharge Date: 09/19/17 - Discharge Diagnosis (1) Gastroenteritis Is this a current diagnosis for this admission?: Yes (2) Hypertension Is this a current diagnosis for this admission?: Yes (3) ARF (acute renal failure) Is this a current diagnosis for this admission?: Yes (4) Diabetes Is this a current diagnosis for this admission?: Yes (5) Hyperlipidemia Is this a current diagnosis for this admission?: Yes - Additional Information Resuscitation Status: Full Code Discharge Activity: Activity As Tolerated Prescriptions: Lisinopril 20 mg PO DAILY #30 tablet Metoprolol Succinate 25 mg PO DAILY #30 tab.er.24h Home Medications: Hydrochlorothiazide [Hydrodiuril 12.5 mg Capsule] 12.5 mg PO DAILY 09/18/17 Metformin HCl [Glucophage 500 mg Tablet] 500 mg PO TID 09/18/17 Lisinopril 20 mg PO DAILY #30 tablet 09/19/17 Metoprolol Succinate 25 mg PO DAILY #30 tab.er.24h 09/19/17 History of Present Illness History of Present Illness: ISA LINDQUIST is a 42 year old male with a past medical history of diabetes, dyslipidemia, and hypertension who presents to the service with nausea vomiting and diarrhea for 24 hours. The patient states he started throwing up this morning. The diarrhea has been going on since yesterday. He has a sick daughter at home who also has diarrhea. He denies any blood in the emesis or in the stool. He denies any chest pain or shortness of breath. He did have some abdominal pain before he came in but this seems to have resolved. He complains of back pain and left flank pain. He is given ice chips down in the ED and feels that he is tolerating that okay. Thus far in the emergency room his received a 1 L bolus as well as antiemetics. The patient also received a dose of hydralazine to control his blood pressure. Right now the bedside the patient feels a little bit better now that he is not throwing up. He feels confident that he could tolerate sips of water. Hospital Course Hospital Course: Patient was admitted to the hospital and continued on IV fluids. His creatinine was noted to be 1.6 with a baseline usually at 1.1. His nausea and vomiting subsided and he was started on clear fluids. He was able to be advanced as tolerated to a solid diabetic diet. Overnight the patient did well. He did complain of flank pain on the left. CT of the abdomen and pelvis done in the ED was negative. I suspect that this was most likely musculoskeletal strain from vomiting and retching. The patient did well with fluids and his creatinine came down to 1.4. He was able to tolerate solid foods. He was hypertensive. In the 160s over 90s. He has not seen a physician in over a year. This is largely due to finances. His lisinopril was increased from 10-20. He was also started on metoprolol 25 mg p.o. twice daily extended release. He is encouraged [facility]. Physical Exam Vital Signs: Temp Pulse Resp BP Pulse Ox 98.8 F 89 20 159/99 H 97 09/19/17 07:52 09/19/17 07:52 09/19/17 07:52 09/19/17 07:52 09/19/17 07:52 Intake & Output 09/18/17 09/19/17 09/20/17 06:59 06:59 06:59 Intake Total 1450 Balance 1450 Weight 99.8 kg GENERAL: This is a well-developed and nourished appearing obese male resting in bed currently in no acute distress. HEART: RRR. No murmurs rubs or gallops. LUNGS: Clear to auscultation bilaterally with equal rise and fall of the chest. ABDOMEN: Soft, nontender, nondistended with normoactive bowel sounds EXTREMETIES: No clubbing, cyanosis or edema. 2+ peripheral pulses bilaterally. NEURO: Awake, alert and oriented 3. Cranial nerves II through XII are specifically intact. Results Laboratory Results: 09/19/17 06:12 09/19/17 06:12 09/19/17 09/19/17 06:12 06:12 WBC 10.8 H RBC 4.92 Hgb 14.0 Hct 39.8 MCV 81 MCH 28.4 MCHC 35.1 RDW 15.0 H Plt Count 168 Sodium 136.5 L Potassium 4.0 Chloride 103 Carbon Dioxide 22 Anion Gap 12 BUN 18 Creatinine 1.40 H Est GFR ( Amer) > 60 Est GFR (Non-Af Amer) 56 L Glucose 160 H Calcium 9.0 Magnesium 1.5 L Impressions: Chest X-Ray 09/18/17 08:53 IMPRESSION: NO SIGNIFICANT RADIOGRAPHIC FINDING IN THE CHEST. Abdomen/Pelvis CT 09/18/17 09:35 IMPRESSION: No CT evidence of obstructive urinary calculi. No hydronephrosis or hydroureter. Multiple intrarenal nonobstructive stones bilaterally. No ureteral calculi. Fatty liver Qualifiers PATEINT BEING DISCHARGED WITH ANY OF THE FOLLOWING DIAGNOSIS?: No Plan Time Spent: Less than 30 Minutes
[2017-09-19 17:16] VITALS: BP 151/95
== END 2017-09-19 18:13 | disposition home or self-care (01) ==
LOC: ER 08:24 → EH 12:43 → INTOOBSV 12:43 → 5 13:42
PROVIDERS: ADMIT Hospitalist; ATTEND Hospitalist
PROC: 3E0234Z Introduction of Serum, Toxoid and Vaccine into Muscle, Percutaneous Approach (ICD-10-PCS; principal; 2017-09-19)
DX: K52.9 Noninfective gastroenteritis and colitis, unspecified (principal); E86.0 Dehydration; N17.9 Acute kidney failure, unspecified; I10 Essential (primary) hypertension; E11.9 Type 2 diabetes mellitus without complications; E78.5 Hyperlipidemia, unspecified; M54.9 Dorsalgia, unspecified; E66.9 Obesity, unspecified; N20.0 Calculus of kidney; K76.0 Fatty (change of) liver, not elsewhere classified; R00.0 Tachycardia, unspecified; Z68.34 Body mass index [BMI] 34.0-34.9, adult; Z59.8 Other problems related to housing and economic circumstances; Z87.891 Personal history of nicotine dependence; Z98.890 Other specified postprocedural states; Z91.14 Patient's other noncompliance with medication regimen; Z23 Encounter for immunization
CPT/HCPCS: 99285; 96361; 96374; 96375; 36415 ×2; 87040; 87070; 82962 ×2; 82550; 83690; 83735; 85025; 85027; 80048; 80053; 81001; 84484; 71020; 74176; 90686; 93005; 93010; G0378 ×2; J0360; J1650 ×2; J3475; J1815 ×2; J2405; J7030

== ENCOUNTER 2018-03-13 19:26 | Emergency (ER) | payer SELFPAY ==
[2018-03-13 19:50] VITALS: BP 160/93
[2018-03-13] MEDS ORDERED: LIDOCAINE 2% VISCOUS SOLN 20 ML UDCUP PO ONE (20:26)
--- NOTE | 2018-03-13 20:30 | ER Document Report ---
HPI - HPI Pain Level: 4 Notes: Patient is a 42-year-old male who presents to the ED complaining of mild pain in the buccal mucosa and mild swelling between the gum his cheek 4-5 days. Patient is concerned that it may be an infection. Pt states he does have poor dentition, but has not been in to see a dentist yet. He states he has an allergy to penicillins. The pain does not radiate. He has not noticed any abscess or purulent discharge. He is still able to eat and drink without any difficulties. He is urinating normally and having normal bowel movements. No other concerns or complaints at this time. Denies any headache, fever, head injury, neck pain, URI, sore throat, chest pain, palpitations, syncope, cough, shortness of breath, wheeze, dyspnea, abdominal pain, nausea/vomiting/diarrhea, urinary retention, dysuria, hematuria, or rash. - ROS Systems Reviewed and Negative: Yes All other systems reviewed and negative - REPRODUCTIVE Reproductive: DENIES: : Past Medical History - Social History Smoking Status: Unknown if Ever Smoked Family History: Arthritis, CVA, DM, Hypertension, Malignancy Patient has suicidal ideation: No Patient has homicidal ideation: No - Past Medical History Cardiac Medical History: Reports: Hx Hypercholesterolemia, Hx Hypertension Endocrine Medical History: Reports: Hx Diabetes Mellitus Type 1, Hx Diabetes Mellitus Type 2 Renal/ Medical History: Reports: Hx Kidney Stones. Denies: Hx Peritoneal Dialysis Psychiatric Medical History: Denies: Hx Depression Past Surgical History: Reports: Hx Cardiac Surgery - as an for "3 holes in heart", Hx Herniorrhaphy, Hx Inguinal Hernia - Immunizations Hx Diphtheria, Pertussis, Tetanus Vaccination: No Vertical Provider Document - CONSTITUTIONAL Agree With Documented VS: Yes Notes: PHYSICAL EXAMINATION: GENERAL: Well-appearing, well-nourished and in no acute distress. HEAD: Atraumatic, normocephalic. EYES: Pupils equal round and reactive to light, extraocular movements intact, sclera anicteric, conjunctiva are normal. ENT: EAC clear b/l. TM's intact b/l without erythema, fluid, or perforation. Nares patent and without discharge. oropharynx clear without exudates. No tonsilar hypertrophy or erythema. Moist mucous membranes. No sinus tenderness. Uvula midline. No palatine shift. No tongue protrusion. No respiratory compromise. Mouth: Poor dentition. + mild decay and mild gingivitis. No obvious abscess or discharge noted. No facial swelling. + tenderness to buccal mucosa/gum near #18. NECK: Normal range of motion, supple without lymphadenopathy. No rigidity/ meningismus. LUNGS: Breath sounds clear to auscultation bilaterally and equal. No wheezes rales or rhonchi. HEART: Regular rate and rhythm without murmurs, rubs, gallops. NEUROLOGICAL: Cranial nerves grossly intact. Normal speech, normal gait. PSYCH: Normal mood, normal affect. SKIN: Warm, Dry, normal turgor, no rashes or lesions noted. - INFECTION CONTROL TRAVEL OUTSIDE OF THE [place] IN LAST 30 DAYS: No Course - Re-evaluation Re-evalutation: 03/13/18 20:34 Patient is an afebrile, well-hydrated, 42-year-old male who presents to the ED with mouth pain and possible infection near #18. Vitals are acceptable. PE is otherwise unremarkable. No I&D, labs, imaging warranted at this time based on H &P. Patient has no significant tachycardia, tachypnea, or hypoxia. He is tolerating p.o. without difficulties and is nontoxic-appearing. Viscous lidocaine dispensed today. I will send him home with prescription for clindamycin. Low suspicion for any meningitis, sepsis, peritonsillar/pharyngeal abscess, respiratory compromise, Bernabe's, temporal arteritis, or other emergent systemic condition at this time. Patient is aware this condition can change from initial presentation and he needs to monitor symptoms closely. Conservative measures otherwise for symptoms. Call to schedule an appointment with a dentist for further evaluation and management. Recheck with your PCM this week as well. Return to the ED with any worsening/concerning symptoms otherwise as reviewed in discharge. Patient is in agreement. - Vital Signs Vital signs: Temp Pulse Resp BP Pulse Ox 98.3 F 100 20 160/93 H 98 03/13/18 19:47 03/13/18 19:47 03/13/18 19:47 03/13/18 19:47 03/13/18 19:47 Discharge - Discharge Clinical Impression: Infection of mouth Condition: Stable Disposition: HOME, SELF-CARE Instructions: Clindamycin ([facility]) Additional Instructions: [place] and floss twice daily Maintain fluid intake Take antibiotics as directed Mouthwash, salt water gargles, peroxide rinse as needed Tylenol/ibuprofen as needed Recheck with PCM this week Call today/tomorrow and schedule an appointment with your dentist for further evaluation Return to the ED with any worsening symptoms and/or development of fever, headache, facial swelling, swelling of lips/tongue/throat, trouble swallowing, drooling, hoarseness, neck pain/stiffness, chest pain, palpitations, syncope, shortness of breath, trouble breathing, abdominal pain, n/v/d, numbness/tingling , or other worsening symptoms that are concerning to you. Prescriptions: Clindamycin HCl [Cleocin 300 mg Capsule] 300 mg PO TID #30 capsule Forms: Elevated Blood Pressure Referrals: [facility] [Provider Group] - Follow up as needed DEE DEE GILL MD [ACTIVE STAFF] - Follow up as needed
== END 2018-03-13 20:44 | disposition home or self-care (01) ==
LOC: ER 19:26
DX: B08.4 Enteroviral vesicular stomatitis with exanthem (principal); K13.79 Other lesions of oral mucosa; E78.00 Pure hypercholesterolemia, unspecified; I10 Essential (primary) hypertension; E11.9 Type 2 diabetes mellitus without complications; Z87.442 Personal history of urinary calculi
CPT/HCPCS: 99282; J3490

== ENCOUNTER 2018-04-07 19:18 | Inpatient (IN) | payer SELFPAY ==
[2018-04-07 21:00] LABS: ABSOLUTE BASOPHILS # (AUTO) 0.1 10^3/uL (0.0-0.2); ABSOLUTE EOSINOPHILS # (AUTO) 0.4 10^3/uL (0.0-0.6); ABSOLUTE LYMPHOCYTES (AUTO) 2.1 10^3/uL (0.5-4.7); ABSOLUTE MONOCYTES (AUTO) 0.9 10^3/uL (0.1-1.4); ABSOLUTE NEUT (AUTO) 11.2 10^3/uL (1.7-8.2); BASOPHILS % (AUTO) 0.5 % (0-2); EOSINOPHILS % (AUTO) 2.9 % (0-6); HEMATOCRIT 35.3 % (37.9-51.0); HEMOGLOBIN 12.4 g/dL (13.5-17.0); LYMPHOCYTES % (AUTO) 14.4 % (13-45); MEAN CORPUSCULAR HEMOGLOBIN 29.2 pg (27.0-33.4); MEAN CORPUSCULAR HGB CONC 35.1 g/dL (32.0-36.0); MEAN CORPUSCULAR VOLUME 83 fl (80-97); MONOCYTES % (AUTO) 6.4 % (3-13); PLATELET COUNT 222 10^3/uL (150-450); RED BLOOD COUNT 4.24 10^6/uL (4.35-5.55); RED CELL DISTRIBUTION WIDTH 14.9 % (11.5-14.0); SEGMENTED NEUTROPHILS % (AUTO) 75.8 % (42-78); TOTAL CELLS COUNTED % (AUTO) 100 %; WHITE BLOOD COUNT 14.7 10^3/uL (4.0-10.5)
[2018-04-07 21:08] LABS: APPEARANCE,URINE SLIGHTLY-CLOUDY; BILIRUBIN,URINE NEGATIVE (NEGATIVE); COLOR,URINE YELLOW; GLUCOSE, URINE >=500 mg/dL (NEGATIVE); KETONES,URINE NEGATIVE (NEGATIVE); LEUKOCYTE ESTERASE,URINE TRACE (NEGATIVE); NITRITE,URINE NEGATIVE (NEGATIVE); PROTEIN,URINE >=500 mg/dL (NEGATIVE); URINE SPECIFIC GRAVITY 1.021; UROBILINOGEN,URINE NEGATIVE mg/dL (<2.0)
[2018-04-07] MEDS ORDERED: METOCLOPRAMIDE HCL INJ/PF 10 MG/2 ML SDV IV ONE (21:46)
[2018-04-07] MEDS ORDERED: NORMAL SALINE 1000 ML 1,000 ML IV ONE (21:46)
--- NOTE | 2018-04-07 21:49 | ER Document Report ---
ED General - General Chief Complaint: Abdominal Pain Stated Complaint: ABDOMINAL PAIN Time Seen by Provider: 04/07/18 19:57 Notes: Patient is a 42-year-old male with a past medical history of obesity, hypertension, diabetes, pancreatitis who presents with 3-4 days of progressively worsening generalized abdominal pain. He describes the pain as an aching, stabbing, moderate to severe pain most localized to his upper abdomen. He states that eating worsens the pain. Nothing improves the pain. He denies history of similar symptoms past. He has not seen his general doctor regarding today's concerns. He has had nausea but no vomiting. He denies fever or constitutional symptoms. TRAVEL OUTSIDE OF THE [place] IN LAST 30 DAYS: No - Related Data Allergies/Adverse Reactions: Penicillins Allergy (Verified 04/07/18 20:42) Past Medical History - General Information source: Patient - Social History Smoking Status: Former Smoker Chew tobacco use (# tins/day): No Frequency of alcohol use: Rare Drug Abuse: None Lives with: Family Family History: Arthritis, CVA, DM, Hypertension, Malignancy Patient has suicidal ideation: No Patient has homicidal ideation: No - Past Medical History Cardiac Medical History: Reports: Hx Hypercholesterolemia, Hx Hypertension Endocrine Medical History: Reports: Hx Diabetes Mellitus Type 1, Hx Diabetes Mellitus Type 2 Renal/ Medical History: Reports: Hx Kidney Stones. Denies: Hx Peritoneal Dialysis Psychiatric Medical History: Denies: Hx Depression Past Surgical History: Reports: Hx Abdominal Surgery - hernia as a child, Hx Cardiac Surgery - as an for "3 holes in heart", Hx Herniorrhaphy, Hx Inguinal Hernia - Immunizations Hx Diphtheria, Pertussis, Tetanus Vaccination: No Review of Systems - Review of Systems Notes: Constitutional: Negative for fever. HENT: Negative for sore throat. Eyes: Negative for visual changes. Cardiovascular: Negative for chest pain. Respiratory: Negative for shortness of breath. Gastrointestinal: Positive for abdominal pain and nausea Genitourinary: Negative for dysuria. Musculoskeletal: Negative for back pain. Skin: Negative for rash. Neurological: Negative for headaches, weakness or numbness. 10 point ROS negative except as marked above and in HPI. Physical Exam - Vital signs Vitals: Temp Pulse Resp BP Pulse Ox 98.9 F 120 H 20 148/97 H 98 04/07/18 19:26 04/07/18 19:26 04/07/18 19:26 04/07/18 19:26 04/07/18 19:26 Interpretation: Hypertensive, Tachycardic Notes: PHYSICAL EXAMINATION: GENERAL: Appears uncomfortable and in pain HEAD: Atraumatic, normocephalic. EYES: Pupils equal round and reactive to light, extraocular movements intact, sclera anicteric, conjunctiva are normal. ENT: nares patent, oropharynx clear without exudates. Moderately dry mucous membranes. NECK: Normal range of motion, supple without lymphadenopathy LUNGS: Breath sounds clear to auscultation bilaterally and equal. No wheezes rales or rhonchi. HEART: Regular tachycardia without murmurs ABDOMEN: Soft, generalized abdominal tenderness most focal to the right upper quadrant and epigastrium although patient is noted to be exquisitely tender throughout. No rebound or guarding. EXTREMITIES: Normal range of motion, no pitting or edema. No cyanosis. NEUROLOGICAL: No focal neurological deficits. Moves all extremities spontaneously and on command. PSYCH: Normal mood, normal affect. SKIN: Warm, Dry, normal turgor, no rashes or lesions noted. Course - Re-evaluation Re-evalutation: 04/07/18 21:47 Patient presents with 4 days of progressively worsening generalized abdominal pain with associated nausea and vomiting. Somewhat ill, moderately tachycardic and appears to be in obvious discomfort. On abdominal examination the patient has tenderness virtually everywhere on palpation of the abdomen. He does not have any guarding. Tenderness seems to be most focal to the right upper and epigastric regions of his abdomen. Concern for possible bowel perforation, ruptured appendicitis, possible acute pancreatitis. It is difficult to delineate as the patient is so diffusely tender in all regions of his abdomen. Will therefore proceed with CT scan of the abdomen pelvis with IV contrast to further clarify and then reassess the patient. 04/08/18 00:42 Patient's pain is overall improved, heart rate has normalized. Laboratories show acute on chronic kidney failure. Otherwise unremarkable. CT scan does show significant inflammation of the pancreas although interesting the patient' s lipase is normal. However his clinical history and imaging does suggest a diagnosis of acute pancreatitis. I discussed the hospitalist Dr. Lieberman who has accepted the patient for admission. - Vital Signs Vital signs: Temp Pulse Resp BP Pulse Ox 98.4 F 90 20 160/90 H 98 04/08/18 02:22 04/08/18 02:22 04/08/18 02:22 04/08/18 02:22 04/08/18 02:22 - Laboratory Result Diagrams: 04/07/18 20:38 04/07/18 22:13 Laboratory results interpreted by me: 04/07/18 04/07/18 04/07/18 20:38 20:38 20:42 WBC 14.7 H RBC 4.24 L Hgb 12.4 L Hct 35.3 L RDW 14.9 H Absolute Neutrophils 11.2 H Sodium BUN Creatinine Est GFR ( Amer) Est GFR (Non-Af Amer) Glucose Hemoglobin A1c % 9.9 H AST Triglycerides Cholesterol HDL Cholesterol Urine Protein >=500 H Urine Glucose (UA) >=500 H Urine Blood SMALL H Ur Leukocyte Esterase TRACE H 04/07/18 04/07/18 22:13 22:13 WBC RBC Hgb Hct RDW Absolute Neutrophils Sodium 136.3 L BUN 29 H Creatinine 2.00 H Est GFR ( Amer) 45 L Est GFR (Non-Af Amer) 37 L Glucose 197 H Hemoglobin A1c % AST 16 L Triglycerides 897 H Cholesterol 247.20 H HDL Cholesterol 25 L Urine Protein Urine Glucose (UA) Urine Blood Ur Leukocyte Esterase - Diagnostic Test Radiology reviewed: Reports reviewed Discharge - Discharge Clinical Impression: Acute pancreatitis Qualifiers: Pancreatitis type: unspecified pancreatitis type Acute pancreatitis complication: unspecified Qualified Code(s): K85.90 - Acute pancreatitis without necrosis or infection, unspecified Acute on chronic kidney failure Qualifiers: Acute renal failure type: unspecified Chronic kidney disease stage: unspecified stage Qualified Code(s): N17.9 - Acute kidney failure, unspecified Condition: Fair Disposition: ADMITTED OBSERVATION Admitting Provider: Hospitalist Unit Admitted: Medical Floor
[2018-04-07] MEDS: MORPHINE SULFATE 10 MG/ML INJ IV PRN ×2 (21:59→23:47)
[2018-04-07 23:14] LABS: ALANINE AMINOTRANSFERASE 36 U/L (21-72); ALBUMIN 3.5 g/dL (3.5-5.0); ALKALINE PHOSPHATASE 68 U/L (38-126); ANION GAP 10 (5-19); ASPARTATE AMINO TRANSFERASE 16 U/L (17-59); BILIRUBIN,DIRECT 0.4 mg/dL (0.0-0.4); BILIRUBIN,TOTAL 0.4 mg/dL (0.2-1.3); BLOOD UREA NITROGEN 29 mg/dL (7-20); CALCIUM 8.4 mg/dL (8.4-10.2); CARBON DIOXIDE 22 mmol/L (22-30); CHLORIDE 104 mmol/L (98-107); GLUCOSE 197 mg/dL (75-110); LIPASE 101.3 U/L (23-300); SODIUM 136.3 mmol/L (137-145); TOTAL PROTEIN 6.6 g/dL (6.3-8.2)
--- NOTE | 2018-04-08 00:06 | RADIOLOGY REPORT (SQ) ---
EXAM DESCRIPTION: CT abdomen and pelvis without contrast04/07/2018 10:59 PM CDT CLINICAL HISTORY: 42 years, Male, generalized abdominal pain COMPARISON: CT abdomen and pelvis without contrast June 19, 2017 TECHNIQUE: Volumetric CT acquisition was performed through the abdomen and pelvis. Images in the axial and coronal planes were presented for interpretation This exam was performed according to our departmental dose-optimization program, which includes automated exposure control, adjustment of the mA and/or kV according to patient size and/or use of iterative reconstruction technique. FINDINGS: The visualized portions of the lung bases are clear. The cardiomediastinal structures are within normal limits. Within the upper abdomen, the liver and spleen are normal in size and morphology. There is diffuse fatty infiltration of the liver. The gallbladder is normal in morphology. The intra/extrahepatic biliary tree is normal in appearance. The adrenal glands are normal in appearance bilaterally. There is edematous enlargement of the pancreatic body and tail with moderate surrounding inflammatory changes. The mid pancreatic body measures 2.6 cm on axial image 37. Pancreatic tail measures 0.7 cm on axial image 35. There are no pancreatic or peripancreatic fluid collections. The pancreatic head is normal in appearance. The right kidney is normal in size. The right ureter is normal in course and caliber. There are at least six nonobstructing stones throughout the right renal collecting system. There are no distal obstructing stones or evidence of hydronephrosis/hydroureter. The left kidney is normal in size. The left ureter is normal in course and caliber. There are at least seven nonobstructing stones throughout the left renal collecting system. There are no distal obstructing stones or evidence of hydronephrosis/hydroureter. The stomach and small intestines are within normal limits without evidence of bowel dilation or wall thickening. The appendix is well-visualized and normal, best seen on axial image 65 posterior to the cecum. The colon is stool filled and unremarkable. Within the pelvis, the bladder and rectum are normal. The prostate is age-appropriate. There are no pathologically enlarged inguinal, retroperitoneal, portacaval, or mesenteric lymph nodes. The soft tissue structures of the abdominal wall are normal. The visualized osseous structures are within normal limits for the patient's age. The abdominal aorta and its primary branches are normal in course and caliber. Limited evaluation of the venous structures demonstrates no gross abnormalities. IMPRESSION: 1. Edematous enlargement of the pancreatic body and tail with surrounding inflammatory changes, consistent with acute pancreatitis. There are no pancreatic or peripancreatic fluid collections.. 2. Nonobstructing bilateral renal calculi without distal obstructing stones. 3. Fatty liver.
[2018-04-08] MEDS ORDERED: NORMAL SALINE 1000 ML 1,000 ML IV ONE (00:11)
[2018-04-08] MEDS ORDERED: IPRATROPIUM/ALBUTEROL 0.5-2.5 MG/3 ML AMPUL NEB PRN (00:23)
[2018-04-08] MEDS ORDERED: INSULIN LISPRO 100 UNIT/ML 3 ML VIAL SUBCUT PRN (00:26)
[2018-04-08] MEDS ORDERED: DEXTROSE 40% GEL 15 GM TUBE PO PRN ×2 (00:26)
[2018-04-08] MEDS ORDERED: DEXTROSE 50%-WATER 25 GM/50 ML DISP.SYRIN IV PRN ×2 (00:26)
[2018-04-08] MEDS ORDERED: GLUCAGON,HUMAN RECOMB 1 MG INJ IM PRN (00:26)
[2018-04-08] MEDS ORDERED: LACTULOSE SYRUP 20 GM/30 ML UDCUP PO ONE (00:27)
[2018-04-08] MEDS ORDERED: MORPHINE SULFATE 10 MG/ML INJ IV PRN (00:29)
[2018-04-08] MEDS: ACETAMINOPHEN 325 MG TABLET PO SCH ×4 (01:01→17:21)
[2018-04-08 01:15] LABS: AMYLASE 51 U/L (30-110)
[2018-04-08 01:30] LABS: DIRECT LDL < 30 mg/dL (<100); TRIGLYCERIDES 897 mg/dL (<150)
[2018-04-08 06:07] LABS: ABSOLUTE BASOPHILS # (AUTO) 0.1 10^3/uL (0.0-0.2); ABSOLUTE EOSINOPHILS # (AUTO) 0.4 10^3/uL (0.0-0.6); ABSOLUTE MONOCYTES (AUTO) 0.9 10^3/uL (0.1-1.4); ABSOLUTE NEUT (AUTO) 7.1 10^3/uL (1.7-8.2); BASOPHILS % (AUTO) 0.8 % (0-2); EOSINOPHILS % (AUTO) 4.2 % (0-6); HEMOGLOBIN 11.8 g/dL (13.5-17.0); LYMPHOCYTES % (AUTO) 19.3 % (13-45); MEAN CORPUSCULAR HEMOGLOBIN 28.8 pg (27.0-33.4); MEAN CORPUSCULAR HGB CONC 34.5 g/dL (32.0-36.0); MEAN CORPUSCULAR VOLUME 83 fl (80-97); MONOCYTES % (AUTO) 8.4 % (3-13); PLATELET COUNT 176 10^3/uL (150-450); RED BLOOD COUNT 4.08 10^6/uL (4.35-5.55); RED CELL DISTRIBUTION WIDTH 14.8 % (11.5-14.0); SEGMENTED NEUTROPHILS % (AUTO) 67.3 % (42-78); TOTAL CELLS COUNTED % (AUTO) 100 %; WHITE BLOOD COUNT 10.6 10^3/uL (4.0-10.5)
[2018-04-08] MEDS ORDERED: ATORVASTATIN CALCIUM 80 MG TABLET PO ONE (06:30)
[2018-04-08 06:36] LABS: ALANINE AMINOTRANSFERASE 31 U/L (21-72); ALBUMIN 3.5 g/dL (3.5-5.0); ALKALINE PHOSPHATASE 67 U/L (38-126); ANION GAP 13 (5-19); ASPARTATE AMINO TRANSFERASE 17 U/L (17-59); BILIRUBIN,DIRECT 0.4 mg/dL (0.0-0.4); BILIRUBIN,TOTAL 0.4 mg/dL (0.2-1.3); BLOOD UREA NITROGEN 27 mg/dL (7-20); CALCIUM 8.6 mg/dL (8.4-10.2); CARBON DIOXIDE 22 mmol/L (22-30); CHLORIDE 104 mmol/L (98-107); GLUCOSE 161 mg/dL (75-110); POTASSIUM 4.4 mmol/L (3.6-5.0); SODIUM 139.2 mmol/L (137-145); TOTAL PROTEIN 6.6 g/dL (6.3-8.2)
[2018-04-08] MEDS: HEPARIN SOD (PORCINE) 5,000 UNIT/ML 1 ML SYRINGE SUBCUT SCH ×3 (06:37→21:50)
[2018-04-08] MEDS: NORMAL SALINE 1000 ML 1,000 ML IV SCH ×2 (06:41→12:57)
--- NOTE | 2018-04-08 06:42 | PDOC H&P ---
History of Present Illness Admission Date/PCP: 04/08/18 00:39 NO LOCALMD Patient complains of: Epigastric pain History of Present Illness: ISA LINDQUIST is a 42 year old male with a history of diabetes, hypertension, stage I chronic kidney disease, dyslipidemia and vertigo. Patient presents with 3-4 days of epigastric pain radiating to the back associated with nausea without vomiting and loose stools. Symptoms alleviated by sitting forward, exacerbated by food. Denies alcohol, new medications or recent viral illness. In the emergency room he is found to have pancreatic inflammation by CT without lipase elevation. He is referred to the hospitalist for admission. Past Medical History Cardiac Medical History: Reports: Hyperlipidema, Hypertension Endocrine Medical History: Reports: Diabetes Mellitus Type 1, Diabetes Mellitus Type 2 Renal/ Medical History: Reports: Chronic Kidney Disease, Nephrolithiasis Psychiatric Medical History: Denies: Alcohol Dependency, Depression, Substance Abuse, Tobacco Dependency Past Surgical History Past Surgical History: Reports: Herniorrhaphy Social History Lives with: Family Smoking Status: Former Smoker Frequency of Alcohol Use: Rare - The patient has alcohol on the holidays. Hx Recreational Drug Use: No Drugs: None Hx Prescription Drug Abuse: No - Advance Directive Resuscitation Status: Full Code Family History Family History: Arthritis, CVA, DM, Hypertension, Malignancy Parental Family History Reviewed: Yes Children Family History Reviewed: Yes Sibling(s) Family History Reviewed.: Yes Medication/Allergy Home Medications: Hydrochlorothiazide [Hydrodiuril 12.5 mg Capsule] 12.5 mg PO DAILY 09/18/17 Lisinopril 20 mg PO DAILY #30 tablet 09/19/17 Metformin HCl [Glucophage 500 mg Tablet] 500 mg PO TID #90 tablet 09/19/17 Metoprolol Succinate 25 mg PO DAILY #30 tab.er.24h 09/19/17 Clindamycin HCl [Cleocin 300 mg Capsule] 300 mg PO TID #30 capsule 03/13/18 Allergies/Adverse Reactions: Penicillins Allergy (Verified 04/07/18 20:42) Review of Systems Constitutional: ABSENT: chills, fever(s), headache(s), weight gain, weight loss Eyes: ABSENT: visual disturbances Ears: ABSENT: hearing changes Cardiovascular: ABSENT: chest pain, dyspnea on exertion, edema, orthropnea, palpitations Respiratory: ABSENT: cough, hemoptysis Gastrointestinal: ABSENT: abdominal pain, constipation, diarrhea, hematemesis, hematochezia, nausea, vomiting Genitourinary: ABSENT: dysuria, hematuria Musculoskeletal: ABSENT: joint swelling Integumentary: ABSENT: rash, wounds Neurological: ABSENT: abnormal gait, abnormal speech, confusion, dizziness, focal weakness, syncope Psychiatric: ABSENT: anxiety, depression, homidical ideation, suicidal ideation Endocrine: ABSENT: cold intolerance, heat intolerance, polydipsia, polyuria Hematologic/Lymphatic: ABSENT: easy bleeding, easy bruising Physical Exam Vital Signs: Temp Pulse Resp BP Pulse Ox 98.4 F 90 20 160/90 H 98 04/08/18 02:22 04/08/18 02:22 04/08/18 02:22 04/08/18 02:22 04/08/18 02:22 General appearance: PRESENT: no acute distress, well-developed, well-nourished Head exam: PRESENT: atraumatic, normocephalic Eye exam: PRESENT: conjunctiva pink, EOMI, PERRLA. ABSENT: scleral icterus Ear exam: PRESENT: normal external ear exam Mouth exam: PRESENT: moist, tongue midline Neck exam: ABSENT: carotid bruit, JVD, lymphadenopathy, thyromegaly Respiratory exam: PRESENT: clear to auscultation kay. ABSENT: rales, rhonchi, wheezes Cardiovascular exam: PRESENT: RRR. ABSENT: diastolic murmur, rubs, systolic murmur Pulses: PRESENT: normal dorsalis pedis pul Vascular exam: PRESENT: normal capillary refill GI/Abdominal exam: PRESENT: hyperactive bowel sounds, normal bowel sounds, soft , tenderness. ABSENT: distended, guarding, mass, organolmegaly, rebound Rectal exam: PRESENT: deferred Extremities exam: PRESENT: full ROM. ABSENT: calf tenderness, clubbing, pedal edema Neurological exam: PRESENT: alert, awake, oriented to person, oriented to place , oriented to time, oriented to situation, CN II-XII grossly intact. ABSENT: motor sensory deficit Psychiatric exam: PRESENT: appropriate affect, normal mood. ABSENT: homicidal ideation, suicidal ideation Skin exam: PRESENT: dry, intact, warm. ABSENT: cyanosis, rash Results Laboratory Results: 04/08/18 05:14 04/08/18 05:14 WBC 10.6 H RBC 4.08 L Hgb 11.8 L Hct 34.0 L MCV 83 MCH 28.8 MCHC 34.5 RDW 14.8 H Plt Count 176 Seg Neutrophils % 67.3 Lymphocytes % 19.3 Monocytes % 8.4 Eosinophils % 4.2 Basophils % 0.8 Absolute Neutrophils 7.1 Absolute Lymphocytes 2.0 Absolute Monocytes 0.9 Absolute Eosinophils 0.4 Absolute Basophils 0.1 Impressions: Abdomen/Pelvis CT 04/07/18 21:46 IMPRESSION: 1. Edematous enlargement of the pancreatic body and tail with surrounding inflammatory changes, consistent with acute pancreatitis. There are no pancreatic or peripancreatic fluid collections.. 2. Nonobstructing bilateral renal calculi without distal obstructing stones. 3. Fatty liver. Assessment & Plan - Diagnosis (1) Acute pancreatitis Qualifiers: Pancreatitis type: unspecified pancreatitis type Acute pancreatitis complication: unspecified Qualified Code(s): K85.90 - Acute pancreatitis without necrosis or infection, unspecified Is this a current diagnosis for this admission?: Yes Plan: Hypertriglycerides versus alcohol induced on Day. Medical floor observation, symptomatically management, n.p.o., IV fluid, electrolyte repletion. Follow-up amylase and lipid profile. (2) Acute on chronic kidney failure Qualifiers: Acute renal failure type: unspecified Chronic kidney disease stage: unspecified stage Qualified Code(s): N17.9 - Acute kidney failure, unspecified ; N18.9 - Chronic kidney disease, unspecified; N18.9 - Chronic kidney disease, unspecified Is this a current diagnosis for this admission?: Yes Plan: Patient admits to metformin, ibuprofen and some degree of dehydration. IV fluid challenge, avoid nephrotoxic meds and doses follow-up chemistry (3) Diabetes Is this a current diagnosis for this admission?: Yes Plan: Discontinue metformin secondary to any disease, insulin, education follow-up A1c (4) Hyperlipidemia Is this a current diagnosis for this admission?: Yes Plan: Most likely secondary to uncontrolled diabetes, initiated gemfibrozil and statin (5) Hypertension Qualifiers: Is this a current diagnosis for this admission?: Yes Plan: LISS inhibitor - Time Time Spent: 50 to 70 Minutes - Inpatient Certification Medical Necessity: Need Close Monitoring Due to Risk of Patient Decompensation
[2018-04-08] MEDS ORDERED: GEMFIBROZIL 600 MG TABLET PO SCH (10:00)
[2018-04-08] MEDS: METOPROLOL SUCCINATE 25 MG TAB.SR.24H PO SCH (10:36)
--- NOTE | 2018-04-08 13:56 | Progress Note ---
Provider Note Provider Note: Patient seen on rounds this morning. Please see HPI for full assessment plan from this morning. A long conversation with patient about his current medical conditions. I discussed about his hyperlipidemia, diabetes and hypertension. He tells me that he does not smoke or drink. Tells me that he drinks alcohol only on holidays such as and . He tells me that he did not have any drinks on April. 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 States that he does not drink water appropriately. He tells me that he went to his doctor 2-3 months ago and had his glucose checked and everything was fine. I told him that given his A1c of 9.9 this is unlikely. I told him that he may need to be on insulin and I will start him on tonight. He supposed to be on metformin and it is being held at this time. His blood pressure is also out of control. And he is to have a titrated and adjusted to optimize his blood pressure at this time. He was also started on Lipitor 80 mg and gemfibrozil 600 twice daily. We will continue the current regimen. We will see how his blood sugars are tomorrow morning and titrate his Lantus as needed. We will repeat his BMP tomorrow to check his creatinine. Continue with IV fluids but I will slow down.
[2018-04-08] MEDS ORDERED: NORMAL SALINE 1000 ML 1,000 ML IV PRN (13:57)
--- NOTE | 2018-04-08 15:23 | PDOC PROGRESS REPORT ---
Subjective Progress Note for:: 04/08/18 - seen on rounds this morning Subjective:: has no acute complaints this morning Reason For Visit: ABD PAIN ACUTE PANCREATITS,ARF Physical Exam Vital Signs: Temp Pulse Resp BP Pulse Ox 97.8 F 83 16 150/94 H 100 04/08/18 12:00 04/08/18 12:00 04/08/18 12:00 04/08/18 12:00 04/08/18 12:00 Intake & Output 04/07/18 04/08/18 04/09/18 06:59 06:59 06:59 Intake Total 0 Balance 0 Weight 225 lb 4.999 oz General appearance: PRESENT: no acute distress, obese Head exam: PRESENT: atraumatic, normocephalic Eye exam: PRESENT: EOMI. ABSENT: conjunctival injection, scleral icterus Mouth exam: PRESENT: moist, neck supple Neck exam: PRESENT: full ROM. ABSENT: JVD, tenderness Respiratory exam: PRESENT: clear to auscultation kay, symmetrical Cardiovascular exam: PRESENT: RRR, +S1, +S2 Pulses: PRESENT: +2 pedal pulses bilateral GI/Abdominal exam: PRESENT: normal bowel sounds, soft. ABSENT: tenderness Extremities exam: ABSENT: joint swelling, pedal edema Musculoskeletal exam: PRESENT: full ROM, tenderness Neurological exam: PRESENT: alert, oriented to person, oriented to place, CN II- XII grossly intact Skin exam: PRESENT: dry, warm Results Laboratory Results: 04/08/18 05:14 04/08/18 05:14 04/08/18 04/08/18 05:14 05:14 WBC 10.6 H RBC 4.08 L Hgb 11.8 L Hct 34.0 L MCV 83 MCH 28.8 MCHC 34.5 RDW 14.8 H Plt Count 176 Seg Neutrophils % 67.3 Lymphocytes % 19.3 Monocytes % 8.4 Eosinophils % 4.2 Basophils % 0.8 Absolute Neutrophils 7.1 Absolute Lymphocytes 2.0 Absolute Monocytes 0.9 Absolute Eosinophils 0.4 Absolute Basophils 0.1 Sodium 139.2 Potassium 4.4 Chloride 104 Carbon Dioxide 22 Anion Gap 13 BUN 27 H Creatinine 2.01 H Est GFR ( Amer) 44 L Est GFR (Non-Af Amer) 37 L Glucose 161 H Calcium 8.6 Total Bilirubin 0.4 AST 17 ALT 31 Alkaline Phosphatase 67 Total Protein 6.6 Albumin 3.5 Impressions: Abdomen/Pelvis CT 04/07/18 21:46 IMPRESSION: 1. Edematous enlargement of the pancreatic body and tail with surrounding inflammatory changes, consistent with acute pancreatitis. There are no pancreatic or peripancreatic fluid collections.. 2. Nonobstructing bilateral renal calculi without distal obstructing stones. 3. Fatty liver. Assessment & Plan - Diagnosis (1) Acute pancreatitis Qualifiers: Pancreatitis type: unspecified pancreatitis type Acute pancreatitis complication: unspecified Qualified Code(s): K85.90 - Acute pancreatitis without necrosis or infection, unspecified Is this a current diagnosis for this admission?: Yes (2) ARF (acute renal failure) Qualifiers: Acute renal failure type: unspecified Qualified Code(s): N17.9 - Acute kidney failure, unspecified Is this a current diagnosis for this admission?: Yes (3) Diabetes Is this a current diagnosis for this admission?: Yes (4) Hyperlipidemia Is this a current diagnosis for this admission?: Yes (5) Hypertension Qualifiers: Is this a current diagnosis for this admission?: Yes - Plan Summary Plan Summary: please see my provider note from today for assessment and plan
[2018-04-08] MEDS: FENOFIBRATE NANOCRYSTALLIZED 48 MG TABLET PO SCH (17:19)
[2018-04-08] MEDS: INSULIN GLARGINE,HUM.REC.ANLOG 300 UNIT/3 ML INSULN.PEN SUBCUT SCH (21:59)
[2018-04-08] MEDS: ATORVASTATIN CALCIUM 80 MG TABLET PO SCH (22:05)
[2018-04-09] MEDS: ACETAMINOPHEN 325 MG TABLET PO SCH ×4 (00:21→15:45)
[2018-04-09] MEDS ORDERED: LOPERAMIDE HCL 2 MG CAPSULE PO ONE (03:30)
[2018-04-09] MEDS: HEPARIN SOD (PORCINE) 5,000 UNIT/ML 1 ML SYRINGE SUBCUT SCH ×3 (05:15→22:19)
[2018-04-09 06:29] LABS: ABSOLUTE EOSINOPHILS # (AUTO) 0.4 10^3/uL (0.0-0.6); ABSOLUTE LYMPHOCYTES (AUTO) 1.4 10^3/uL (0.5-4.7); ABSOLUTE MONOCYTES (AUTO) 0.6 10^3/uL (0.1-1.4); ABSOLUTE NEUT (AUTO) 4.6 10^3/uL (1.7-8.2); BASOPHILS % (AUTO) 0.6 % (0-2); EOSINOPHILS % (AUTO) 5.5 % (0-6); HEMATOCRIT 33.9 % (37.9-51.0); HEMOGLOBIN 11.7 g/dL (13.5-17.0); LYMPHOCYTES % (AUTO) 20.3 % (13-45); MEAN CORPUSCULAR HEMOGLOBIN 28.6 pg (27.0-33.4); MEAN CORPUSCULAR HGB CONC 34.3 g/dL (32.0-36.0); MEAN CORPUSCULAR VOLUME 83 fl (80-97); MONOCYTES % (AUTO) 8.4 % (3-13); PLATELET COUNT 181 10^3/uL (150-450); RED BLOOD COUNT 4.07 10^6/uL (4.35-5.55); RED CELL DISTRIBUTION WIDTH 15.3 % (11.5-14.0); SEGMENTED NEUTROPHILS % (AUTO) 65.2 % (42-78); TOTAL CELLS COUNTED % (AUTO) 100 %; WHITE BLOOD COUNT 7.1 10^3/uL (4.0-10.5)
[2018-04-09 06:54] LABS: ALANINE AMINOTRANSFERASE 38 U/L (21-72); ALBUMIN 3.3 g/dL (3.5-5.0); ALKALINE PHOSPHATASE 63 U/L (38-126); ANION GAP 12 (5-19); ASPARTATE AMINO TRANSFERASE 25 U/L (17-59); BILIRUBIN,DIRECT 0.4 mg/dL (0.0-0.4); BLOOD UREA NITROGEN 19 mg/dL (7-20); CALCIUM 8.8 mg/dL (8.4-10.2); CARBON DIOXIDE 21 mmol/L (22-30); CHLORIDE 109 mmol/L (98-107); GLUCOSE 122 mg/dL (75-110); POTASSIUM 4.4 mmol/L (3.6-5.0); SODIUM 141.9 mmol/L (137-145); TOTAL PROTEIN 6.3 g/dL (6.3-8.2)
[2018-04-09 08:01] LABS: BILIRUBIN,TOTAL 0.5 mg/dL (0.2-1.3)
[2018-04-09] MEDS ORDERED: NORMAL SALINE 1000 ML 1,000 ML IV PRN (10:39)
[2018-04-09] MEDS: METOPROLOL SUCCINATE 25 MG TAB.SR.24H PO SCH (11:00)
--- NOTE | 2018-04-09 17:00 | PDOC PROGRESS REPORT ---
Subjective Progress Note for:: 04/09/18 - Seen on rounds this morning. Subjective:: States he has no acute complaints this morning. Reason For Visit: ABD PAIN ACUTE PANCREATITS,ARF Physical Exam Vital Signs: Temp Pulse Resp BP Pulse Ox 98.2 F 88 18 150/84 H 100 04/09/18 16:00 04/09/18 16:00 04/09/18 16:00 04/09/18 16:00 04/09/18 16:00 Intake & Output 04/08/18 04/09/18 04/10/18 06:59 06:59 06:59 Intake Total 0 3300 Balance 0 3300 Weight 225 lb 4.999 oz 239 lb 10.279 oz General appearance: PRESENT: no acute distress, obese Head exam: PRESENT: atraumatic, normocephalic Eye exam: PRESENT: EOMI. ABSENT: conjunctival injection, conjunctiva pink, scleral icterus Ear exam: PRESENT: normal external ear exam Mouth exam: PRESENT: moist, neck supple Neck exam: PRESENT: full ROM. ABSENT: JVD, tenderness Respiratory exam: PRESENT: clear to auscultation kay, symmetrical Cardiovascular exam: PRESENT: RRR, +S1, +S2 Pulses: PRESENT: +2 pedal pulses bilateral Vascular exam: PRESENT: normal capillary refill GI/Abdominal exam: PRESENT: normal bowel sounds, soft. ABSENT: tenderness Extremities exam: ABSENT: joint swelling, pedal edema Neurological exam: PRESENT: alert, awake, oriented to place, oriented to time, oriented to situation, CN II-XII grossly intact Skin exam: PRESENT: dry, warm Results Laboratory Results: 04/09/18 05:16 04/09/18 05:16 04/09/18 04/09/18 05:16 05:16 WBC 7.1 RBC 4.07 L Hgb 11.7 L Hct 33.9 L MCV 83 MCH 28.6 MCHC 34.3 RDW 15.3 H Plt Count 181 Seg Neutrophils % 65.2 Lymphocytes % 20.3 Monocytes % 8.4 Eosinophils % 5.5 Basophils % 0.6 Absolute Neutrophils 4.6 Absolute Lymphocytes 1.4 Absolute Monocytes 0.6 Absolute Eosinophils 0.4 Absolute Basophils 0.0 Sodium 141.9 Potassium 4.4 Chloride 109 H Carbon Dioxide 21 L Anion Gap 12 BUN 19 Creatinine 1.64 H Est GFR ( Amer) 56 L Est GFR (Non-Af Amer) 46 L Glucose 122 H Calcium 8.8 Total Bilirubin 0.5 AST 25 ALT 38 Alkaline Phosphatase 63 Total Protein 6.3 Albumin 3.3 L Impressions: Abdomen/Pelvis CT 04/07/18 21:46 IMPRESSION: 1. Edematous enlargement of the pancreatic body and tail with surrounding inflammatory changes, consistent with acute pancreatitis. There are no pancreatic or peripancreatic fluid collections.. 2. Nonobstructing bilateral renal calculi without distal obstructing stones. 3. Fatty liver. Assessment & Plan - Diagnosis (1) Acute pancreatitis Qualifiers: Pancreatitis type: unspecified pancreatitis type Acute pancreatitis complication: unspecified Qualified Code(s): K85.90 - Acute pancreatitis without necrosis or infection, unspecified Is this a current diagnosis for this admission?: Yes (2) ARF (acute renal failure) Qualifiers: Acute renal failure type: unspecified Qualified Code(s): N17.9 - Acute kidney failure, unspecified Is this a current diagnosis for this admission?: Yes (3) Diabetes Is this a current diagnosis for this admission?: Yes (4) Hyperlipidemia Is this a current diagnosis for this admission?: Yes (5) Hypertension Qualifiers: Is this a current diagnosis for this admission?: Yes - Time Time Spent with patient: 15-24 minutes - Plan Summary Plan Summary: AK-creatinine is improving with fluid IV hydration-creatinine today is 1.6- hich has come down from 2. I have continued IV fluids but I think tomorrow he can be titrated off. He is also started on a diabetic diet because he wanted to eat. Hypertriglyceridemia-started on high-dose statin and yesterday pharmacy switched his gemfibrozil to [employer]. Diabetes mellitus-start him on Lantus and sliding scale insulin. He did not receive his Lantus last night because he was n.p.o. Hopefully he will get it today. I started him on 10 units Lantus at nighttime-his A1c is greater than 9. Hypertension-blood pressure still running slightly elevated-currently he is on metoprolol 25 mg p.o. twice daily. His lisinopril and hydrochlorthiazide was held due to HPI. May have to start him back on his lisinopril hydrochlorothiazide and his creatinine is improved. At the should be a for discharge in 1-2 days if he remains stable and but no overnight acute events.
[2018-04-09] MEDS: FENOFIBRATE NANOCRYSTALLIZED 48 MG TABLET PO SCH (17:32)
[2018-04-09] MEDS: INSULIN GLARGINE,HUM.REC.ANLOG 300 UNIT/3 ML INSULN.PEN SUBCUT SCH (22:45)
[2018-04-09] MEDS: ATORVASTATIN CALCIUM 80 MG TABLET PO SCH (22:45)
[2018-04-10] MEDS: ACETAMINOPHEN 325 MG TABLET PO SCH ×3 (00:32→12:51)
[2018-04-10] MEDS: HYDRALAZINE HCL INJ/PF 20 MG/1 ML SDV IV PRN ×2 (00:36→12:51)
[2018-04-10] MEDS: HEPARIN SOD (PORCINE) 5,000 UNIT/ML 1 ML SYRINGE SUBCUT SCH (05:14)
[2018-04-10] MEDS: METOPROLOL SUCCINATE 25 MG TAB.SR.24H PO SCH (10:40)
[2018-04-10 13:00] LABS: ALANINE AMINOTRANSFERASE 39 U/L (21-72); ALKALINE PHOSPHATASE 76 U/L (38-126); ANION GAP 15 (5-19); ASPARTATE AMINO TRANSFERASE 24 U/L (17-59); BILIRUBIN,DIRECT 0.4 mg/dL (0.0-0.4); BILIRUBIN,TOTAL 0.4 mg/dL (0.2-1.3); BLOOD UREA NITROGEN 21 mg/dL (7-20); CALCIUM 9.7 mg/dL (8.4-10.2); CARBON DIOXIDE 21 mmol/L (22-30); CHLORIDE 105 mmol/L (98-107); GLUCOSE 161 mg/dL (75-110); POTASSIUM 4.7 mmol/L (3.6-5.0); SODIUM 140.5 mmol/L (137-145); TOTAL PROTEIN 7.5 g/dL (6.3-8.2)
[2018-04-10 13:11] VITALS: BP 180/110
[2018-04-10] MEDS ORDERED: (PENDING PHARMACY ID) (Lovastatin [Mevacor] 20 MG) PO SCH (13:15)
[2018-04-10] MEDS ORDERED: METOPROLOL SUCCINATE 25 MG TAB.SR.24H PO ONE (13:41)
[2018-04-10] MEDS ORDERED: AMLODIPINE BESYLATE 10 MG TABLET PO ONE (15:00)
--- NOTE | 2018-04-10 15:21 | PDOC DISCHARGE SUMMARY ---
General - Admit/Disc Date/PCP Admission Date/Primary Care Provider: 04/08/18 00:39 [facility] Discharge Date: 04/10/18 - Discharge Diagnosis (1) Acute on chronic kidney failure Is this a current diagnosis for this admission?: Yes (2) Acute pancreatitis Is this a current diagnosis for this admission?: Yes (3) Diabetes Is this a current diagnosis for this admission?: Yes (4) Hyperlipidemia Is this a current diagnosis for this admission?: Yes (5) Hypertension Is this a current diagnosis for this admission?: Yes - Additional Information Resuscitation Status: Full Code Discharge Diet: Diabetic Discharge Activity: Activity As Tolerated Prescriptions: Amlodipine Besylate [Norvasc 10 mg Tablet] 10 mg PO DAILY 30 Days #30 tablet Glipizide 5 mg PO DAILY 30 Days #30 tablet Metoprolol Succinate [Toprol Xl 25 mg Tab.sr] 25 mg PO DAILY #30 tab.sr.24h Home Medications: Lovastatin [Mevacor] 20 mg PO DAILY [facility] HAS NOT FILLED SINCE JANUARY 2018 04/08/18 Metformin HCl [Glucophage] 1,000 mg PO BID [facility] HAS NOT FILLED SINCE JANUARY 201805/19 Amlodipine Besylate [Norvasc 10 mg Tablet] 10 mg PO DAILY 30 Days #30 tablet 07/19 Glipizide 5 mg PO DAILY 30 Days #30 tablet 04/10/18 Metoprolol Succinate [Toprol Xl 25 mg Tab.sr] 25 mg PO DAILY #30 tab.sr.24h 07/19 History of Present Illness Patient complains of: Abdominal pain History of Present Illness: ISA LINDQUIST is a 42 year old male with diabetes hypertension chronic kidney disease stage II and hyperlipidemia who presented to the hospital on 04/07/18 with abdominal pain. CAT scan of the abdomen and pelvis showed edema of the pancreatic body and tail consistent with acute pancreatitis. There was no peripancreatic fluid collection seen. He was also observed to have bilateral nonobstructing renal calculi and fatty liver. He was found to have a creatinine of 2.00 and was started on IV fluids. His abdominal pain improved. Hydrochlorothiazide lisinopril was stopped. Creatinine has improved it is 1.6. He was started on amlodipine and Toprol-XL 25 mg for blood pressure control. Hemoglobin A1c was 9.9. The patient admitted to not being compliant with his medications including Metformin. He was also started on glipizide which was added to his regimen for better blood sugar control. He is to follow-up with his primary care provider in 1 week. Hospital Course Hospital Course: As above. Stable and ready for discharge. He has been able to tolerate a low-fat diabetic diet. Abdominal pain has resolved. Lipase level is normal. Physical Exam Vital Signs: Temp Pulse Resp BP Pulse Ox 98.2 F 84 14 180/110 H 100 04/10/18 14:27 04/10/18 14:27 04/10/18 14:27 04/10/18 14:27 04/10/18 14:27 Intake & Output 04/09/18 04/10/18 04/11/18 06:59 06:59 06:59 Intake Total 3300 6020 Balance 3300 6020 Weight 108.7 kg 108.7 kg General appearance: PRESENT: no acute distress Respiratory exam: PRESENT: symmetrical, unlabored Neurological exam: PRESENT: alert, awake Results Laboratory Results: 04/09/18 05:16 04/10/18 12:31 04/10/18 12:31 Sodium 140.5 Potassium 4.7 Chloride 105 Carbon Dioxide 21 L Anion Gap 15 BUN 21 H Creatinine 1.69 H Est GFR ( Amer) 54 L Est GFR (Non-Af Amer) 45 L Glucose 161 H Calcium 9.7 Phosphorus 4.0 Magnesium 1.8 Total Bilirubin 0.4 AST 24 ALT 39 Alkaline Phosphatase 76 Total Protein 7.5 Albumin 4.0 Lipase 112.0 Impressions: Abdomen/Pelvis CT 04/07/18 21:46 IMPRESSION: 1. Edematous enlargement of the pancreatic body and tail with surrounding inflammatory changes, consistent with acute pancreatitis. There are no pancreatic or peripancreatic fluid collections.. 2. Nonobstructing bilateral renal calculi without distal obstructing stones. 3. Fatty liver. Qualifiers - * PATIENT BEING DISCHARGED WITH ANY OF THE FOLLOWING DIAGNOSIS: No Plan Time Spent: Greater than 30 Minutes
[2018-04-10] MEDS ORDERED: METFORMIN HCL 500 MG TABLET PO SCH (18:00)
[2018-04-11] MEDS ORDERED: METOPROLOL SUCCINATE 50 MG TAB.SR.24H PO SCH (10:00)
[2018-04-11] MEDS ORDERED: METOPROLOL SUCCINATE 25 MG TAB.SR.24H PO SCH (10:00)
[2018-04-11] MEDS ORDERED: AMLODIPINE BESYLATE 10 MG TABLET PO SCH (10:00)
== END 2018-04-10 14:57 | disposition home or self-care (01) | DRG 682 ==
LOC: ER 19:18 → OBSVTOIN 04-08 00:39 → EH 04-08 00:39 → 4N 04-08 02:20
PROVIDERS: ADMIT Internal Medicine; ATTEND Internal Medicine
DX: N17.9 Acute kidney failure, unspecified (principal); K85.90 Acute pancreatitis without necrosis or infection, unspecified; N18.2 Chronic kidney disease, stage 2 (mild); E78.00 Pure hypercholesterolemia, unspecified; E11.22 Type 2 diabetes mellitus with diabetic chronic kidney disease; I12.9 Hypertensive chronic kidney disease with stage 1 through stage 4 chronic kidney disease, or unspecified chronic kidney disease; K76.0 Fatty (change of) liver, not elsewhere classified; E78.1 Pure hyperglyceridemia; E66.9 Obesity, unspecified; Z68.37 Body mass index [BMI] 37.0-37.9, adult; N20.0 Calculus of kidney; Z87.891 Personal history of nicotine dependence; Z79.899 Other long term (current) drug therapy; Z88.0 Allergy status to penicillin; Z91.14 Patient's other noncompliance with medication regimen; Z82.61 Family history of arthritis; Z82.3 Family history of stroke; Z83.3 Family history of diabetes mellitus; Z80.9 Family history of malignant neoplasm, unspecified; Z82.49 Family history of ischemic heart disease and other diseases of the circulatory system
CPT/HCPCS: 36415; 74176; 80053; 80061; 81001; 82150; 82962; 83036; 83690; 83735; 84100; 85025; 96361; 96374; 99285; J0360; J1644; J1815; J2270; J2765; J7030

== ENCOUNTER 2018-08-13 06:25 | Emergency (ER) | payer SELFPAY ==
[2018-08-13] MEDS ORDERED: NORMAL SALINE 500 ML IV ONE (07:27)
[2018-08-13] MEDS ORDERED: ACETAMINOPHEN WITH CODEINE #3 TABLET PO ONE (07:27)
[2018-08-13 07:35] LABS: ABSOLUTE BASOPHILS # (AUTO) 0.1 10^3/uL (0.0-0.2); ABSOLUTE EOSINOPHILS # (AUTO) 0.5 10^3/uL (0.0-0.6); ABSOLUTE MONOCYTES (AUTO) 0.9 10^3/uL (0.1-1.4); ABSOLUTE NEUT (AUTO) 6.6 10^3/uL (1.7-8.2); BASOPHILS % (AUTO) 0.9 % (0-2); EOSINOPHILS % (AUTO) 4.8 % (0-6); HEMATOCRIT 40.8 % (37.9-51.0); HEMOGLOBIN 13.8 g/dL (13.5-17.0); LYMPHOCYTES % (AUTO) 19.4 % (13-45); MEAN CORPUSCULAR HEMOGLOBIN 27.7 pg (27.0-33.4); MEAN CORPUSCULAR HGB CONC 33.9 g/dL (32.0-36.0); MEAN CORPUSCULAR VOLUME 82 fl (80-97); MONOCYTES % (AUTO) 9.3 % (3-13); PLATELET COUNT 227 10^3/uL (150-450); RED CELL DISTRIBUTION WIDTH 15.4 % (11.5-14.0); SEGMENTED NEUTROPHILS % (AUTO) 65.6 % (42-78); TOTAL CELLS COUNTED % (AUTO) 100 %; WHITE BLOOD COUNT 10.1 10^3/uL (4.0-10.5)
[2018-08-13 07:43] LABS: A TYPE INFLUENZA AG NEGATIVE (NEGATIVE); B INFLUENZA AG NEGATIVE (NEGATIVE)
--- NOTE | 2018-08-13 07:58 | RADIOLOGY REPORT (SQ) ---
EXAM DESCRIPTION: XR CHEST 1 VIEW COMPLETED DATE/TME: 08/13/2018 00:00 CLINICAL HISTORY: 43 years, Male, cough COMPARISON: None. NUMBER OF VIEWS: One TECHNIQUE: AP view of the chest LIMITATIONS: None. FINDINGS: The lungs are clear. The heart is normal in size. There is no pneumothorax or pleural effusion. There is no acute fracture IMPRESSION: No acute cardiopulmonary abnormality 2010 [employer]- All Rights Reserved
--- NOTE | 2018-08-13 08:01 | ER Document Report ---
ED Respiratory Problem - General Chief Complaint: Cough Stated Complaint: COUGH/BODY ACHES Time Seen by Provider: 08/13/18 07:16 Mode of Arrival: Ambulatory Information source: Patient Notes: Patient is a 43-year-old male comes to emergency room with a complaint of 3-day onset of a severe cough. Patient states that it hurts to take a deep breath. He denies any known injuries. Patient does state that he hurts all the way across the ribs and especially when he takes in a deep breath. The coughing has become difficult to control and this is the main source of the pain was with the cough. He states that he had a fever 2 days ago when asked how he knew he stated that his mother felt him and told him he was hot. He also has had some congestion with runny nose and a mild headache. He has a history of hyper cholesterolemia, wqf-ytcwpbq-jbecbyhao diabetes, vertigo chronic, hypertension. Patient states that he works at the [employer] and denies smoking. TRAVEL OUTSIDE OF THE [place] IN LAST 30 DAYS: No - HPI Patient complains to provider of: Cough, Hurts to breath, Short of breath Onset: Other - 3 days Duration: Continuous, Worse/persistent Initiating Event: URI Quality of pain: Sharp, Stabbing, Throbbing Severity: Moderate Pain Level: 3 Context: denies: Recent cardiac event, Recent foreign travel, Recent long distance trvl, Recent immobilization, Recent surgery, Smoker Short of Breath: Moderate Chest pain/discomfort: Worse with deep breaths Cough: Nonproductive Sputum amount: None Associated symptoms: Chest pain/discomfort, Facial pain, Fever, Hurts to breathe , Runny nose, Short of breath, Sore Throat. denies: Difficulty breathing, Wheezing Worsened by: Movement and deep breathing. 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 Denies: Hx Peritoneal Dialysis Psychiatric Medical History: Denies: Hx Depression Past Surgical History: Reports: Hx Abdominal Surgery - hernia as a child, Hx Cardiac Surgery - as an for "3 holes in heart", Hx Herniorrhaphy, Hx Inguinal Hernia - Immunizations Hx Diphtheria, Pertussis, Tetanus Vaccination: No Review of Systems - Review of Systems Constitutional: No symptoms reported EENT: No symptoms reported Cardiovascular: See HPI, Chest pain Respiratory: Cough, Hurts to breathe, Short of breath Gastrointestinal: Abdomen distended, Abdominal pain Genitourinary: No symptoms reported Male Genitourinary: No symptoms reported Musculoskeletal: No symptoms reported Skin: No symptoms reported Hematologic/Lymphatic: No symptoms reported Neurological/Psychological: No symptoms reported -: Yes All other systems reviewed and negative Physical Exam - Vital signs Vitals: Temp Pulse Resp BP Pulse Ox 98.0 F 109 H 18 182/127 H 96 08/13/18 06:36 08/13/18 06:36 08/13/18 06:36 08/13/18 06:36 08/13/18 06:36 Interpretation: Hypertensive, Tachycardic - Notes Notes: PHYSICAL EXAMINATION: GENERAL: Patient is a well-nourished well-developed 43-year-old male who is in no apparent distress on physical exam at this time. He is awake alert and oriented x4 he is interactive and pleasant. HEAD: Atraumatic, normocephalic. EYES: Pupils equal round and reactive to light, extraocular movements intact, sclera anicteric, conjunctiva are normal. ENT: Physical exam of head and upper airway showed nasal mucosa to be moderately erythematous and edematous with some rhinorrhea noted. Bilateral nares are congested. Patient displays some mild maxillary and frontal sinus tenderness to palpation. Bilateral exam of the ears show mild cerumen but nonobstructing view of the TMs which show to be slightly bulging with no fluid levels noted. There is no erythema around the TMs bilaterally. Further examination of the oral cavity shows the posterior pharynx to be moderately erythematous with no exudate noted. Uvula is midline with no exudate but moderate amount of erythema. There is no encroachment upon the uvula at this time. Airway is patent. The physical exam also shows patient has some postnasal drainage which appears light green in color very thick. NECK: Normal range of motion, supple without lymphadenopathy LUNGS: Breath sounds clear to auscultation bilaterally and equal. No wheezes rales or rhonchi. HEART: Tachycardic rate and rhythm without murmurs ABDOMEN: Examination patient's abdomen shows mild distention some minimal tympany in the upper quadrants. Patient has moderate amount of discomfort in the right upper quadrant. Mild positive Sinha sign on the right upper quadrant. Bowel sounds are present all 4 quads. Tenderness only relates to the right upper quadrant. Musculoskeletal: Normal range of motion, no pitting or edema. No cyanosis. NEUROLOGICAL: Normal speech, normal gait. Normal sensory, motor exams PSYCH: Normal mood, normal affect. SKIN: Warm, Dry, normal turgor, no rashes or lesions noted. Course - Re-evaluation Re-evalutation: 08/13/18 11:26 Patient ER course was pretty much uneventful. Labs came back relatively okay he had some mild dehydration renal functions at 2.5 creatinine we gave him a liter of fluids and kind of monitoring. His blood pressure did elevate illness he is not taking his hypertensive medications in over a month and he did not inform you that are on my evaluation. He had told me that the last doctor recently changed that he was not sure what it was. Come to find out he is on amlodipine 10 mg daily, metformin 1000 mg twice daily and glipizide 5 mg daily. I informed him that I will feeling 1 months worth of this medications to give more time to find a provider. I am going to place him on a 5 mg prednisone taper secondary to his bronchitis which is causing him and wheezing. My reevaluation listening to his lungs showed wheezing which was not present on the first auscultation of his lungs. I believe the steroids although will raise his sugar slightly it will help with the breathing much better. I have sat and discussed this with patient he has happy with this plan he can return to work on . - Vital Signs Vital signs: Temp Pulse Resp BP Pulse Ox 98.0 F 109 H 23 H 186/124 H 95 08/13/18 06:36 08/13/18 06:36 08/13/18 09:45 08/13/18 09:45 08/13/18 09:45 - Laboratory Result Diagrams: 08/13/18 07:00 08/13/18 08:24 Laboratory results interpreted by me: 08/13/18 08/13/18 08/13/18 07:00 08:24 08:30 RDW 15.4 H Carbon Dioxide 21 L BUN 25 H Creatinine 2.51 H Est GFR ( Amer) 34 L Est GFR (Non-Af Amer) 28 L Glucose 215 H POC Glucose Urine Protein >=500 H Urine Glucose (UA) >=500 H 08/13/18 08:48 RDW Carbon Dioxide BUN Creatinine Est GFR ( Amer) Est GFR (Non-Af Amer) Glucose POC Glucose 206 H Urine Protein Urine Glucose (UA) Discharge - Discharge Clinical Impression: Hypertension Qualifiers: Hypertension type: essential hypertension Qualified Code(s): I10 - Essential ( primary) hypertension Diabetes Qualifiers: Diabetes mellitus type: type 2 Diabetes mellitus architectural associate insulin use: without usp use Diabetes mellitus complication status: without complication Qualified Code(s): E11.9 - Type 2 diabetes mellitus without complications Asthmatic bronchitis Qualifiers: Asthma severity: mild Asthma persistence: persistent Asthma complication type: uncomplicated Qualified Code(s): J45.30 - Mild persistent asthma, uncomplicated Condition: Stable Disposition: HOME, SELF-CARE Instructions: High Blood Pressure ([facility]), Diabetes ([facility]), Control of Diabetes During Illness ([facility]), Bronchitis With Bronchospasm (Wheezing) ([facility]) Additional Instructions: As I have indicated to you already 1 month supply of your blood pressure medication and your diabetic medications this will give you time to that was with another doctor clinic. Essential that you monitor your blood pressures and your blood sugars. Your fragile hypertensive and may need more than the tube medication for 3 medications to control it. While we will knows to keep a log. Since you have no a blood pressure machine take your blood pressure when you wake up in the morning sometime late morning early afternoon early evening and before bed. Also includes her heart rate with each 1 of those measurements. This will help your provider establish a good basic routine for you. Also has a history of hypertension a lot of the rorp-iwj-xmmmkdu medications for colds is placed with decongestants which will raise your blood pressure is a you must be careful when getting qbxs-sws-bcwkifm medications for the average cold. 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 Prescriptions: Acetaminophen with Codeine [Tylenol #3 Tablet] 1 each PO Q4HP PRN #30 tablet PRN Reason: Amlodipine Besylate [Norvasc 10 mg Tablet] 10 mg PO DAILY #30 tablet Chlorpheniramine Maleate [Chlor-Trimeton 4 mg Tablet] 1 tab PO Q4 PRN #2 pkg PRN Reason: Glipizide [Glipizide Xl] 5 mg PO DAILY #30 tab.er.24 Metformin HCl 2 tab PO BID #120 tablet Prednisone 5 mg PO ASDIR 6 Days #1 tab.ds.pk Forms: Elevated Blood Pressure, Return to Work Referrals: [facility] [NO LOCAL MD] - Follow up as needed
[2018-08-13 09:16] LABS: ALANINE AMINOTRANSFERASE 30 U/L (21-72); ALBUMIN 3.7 g/dL (3.5-5.0); ALKALINE PHOSPHATASE 106 U/L (38-126); ANION GAP 15 (5-19); ASPARTATE AMINO TRANSFERASE 23 U/L (17-59); BILIRUBIN,DIRECT 0.3 mg/dL (0.0-0.4); BILIRUBIN,TOTAL 0.5 mg/dL (0.2-1.3); BLOOD UREA NITROGEN 25 mg/dL (7-20); CALCIUM 9.3 mg/dL (8.4-10.2); CARBON DIOXIDE 21 mmol/L (22-30); CHLORIDE 104 mmol/L (98-107); GLUCOSE 215 mg/dL (75-110); POTASSIUM 4.4 mmol/L (3.6-5.0); SODIUM 140.3 mmol/L (137-145)
[2018-08-13 09:30] LABS: URINE AMPHETAMINES SCREEN NEGATIVE; URINE BARBITURATES SCREEN NEGATIVE; URINE COCAINE SCREEN NEGATIVE; URINE MARIJUANA (THC) SCREEN NEGATIVE; URINE METHADONE SCREEN NEGATIVE; URINE PHENCYCLIDINE SCREEN NEGATIVE
[2018-08-13 09:45] LABS: APPEARANCE,URINE SLIGHTLY-CLOUDY; BILIRUBIN,URINE NEGATIVE (NEGATIVE); COLOR,URINE YELLOW; GLUCOSE, URINE >=500 mg/dL (NEGATIVE); KETONES,URINE NEGATIVE (NEGATIVE); LEUKOCYTE ESTERASE,URINE NEGATIVE (NEGATIVE); NITRITE,URINE NEGATIVE (NEGATIVE); PROTEIN,URINE >=500 mg/dL (NEGATIVE); UROBILINOGEN,URINE NEGATIVE mg/dL (<2.0)
[2018-08-13] MEDS ORDERED: CLONIDINE HCL 0.1 MG TABLET PO ONE (09:47)
[2018-08-13 09:59] LABS: URINE BENZODIAZEPINES SCREEN NEGATIVE
[2018-08-13] MEDS ORDERED: NORMAL SALINE 1000 ML 1,000 ML IV ONE (10:26)
--- NOTE | 2018-08-13 10:32 | EKG REPORT ---
SEVERITY:- ABNORMAL ECG - SINUS TACHYCARDIA LEFT VENTRICULAR HYPERTROPHY BORDERLINE PROLONGED QT INTERVAL : Confirmed by: Charleen Torres 13-Aug-2018 10:32:12
[2018-08-13] MEDS ORDERED: GLIPIZIDE XL 5 MG TAB.ER.24 PO ONE (11:24)
[2018-08-13] MEDS ORDERED: AMLODIPINE BESYLATE 10 MG TABLET PO ONE (11:25)
[2018-08-13] MEDS ORDERED: METFORMIN HCL 500 MG TABLET PO ONE (11:25)
[2018-08-13 12:01] VITALS: BP 147/113
== END 2018-08-13 12:05 | disposition home or self-care (01) ==
LOC: ER 06:25
DX: I10 Essential (primary) hypertension (principal); E11.9 Type 2 diabetes mellitus without complications; J45.30 Mild persistent asthma, uncomplicated; M79.10 Myalgia, unspecified site; E78.00 Pure hypercholesterolemia, unspecified; Z87.442 Personal history of urinary calculi; Z88.0 Allergy status to penicillin
CPT/HCPCS: 93005; 99284; 96360; 96361; 36415; 82962; 85025; 80053; 81001; 84484; 80307; 87804; 71045; 93010; J7030; J7040

== ENCOUNTER 2018-09-18 06:12 | Inpatient (IN) | payer SELFPAY ==
[2018-09-18] MEDS ORDERED: IPRATROPIUM/ALBUTEROL 0.5-2.5 MG/3 ML AMPUL NEB ONE (07:32)
--- NOTE | 2018-09-18 08:00 | RADIOLOGY REPORT (SQ) ---
EXAM DESCRIPTION: XR CHEST 2 VIEWS COMPLETED DATE/TME: 09/18/2018 07:18 CLINICAL HISTORY: 43 years Male, cough x2-3 weeks COMPARISON:08/13/2018 NUMBER OF VIEWS/TECHNIQUE: 1/AP FINDINGS: Adequate lung volume, pulmonary vascular congestion, normal cardiac silhouette, and intact bony thorax. IMPRESSION: Pulmonary vascular congestion.
[2018-09-18] MEDS ORDERED: AMLODIPINE BESYLATE 10 MG TABLET PO ONE (08:28)
[2018-09-18 09:04] LABS: ABSOLUTE BASOPHILS # (AUTO) 0.1 10^3/uL (0.0-0.2); ABSOLUTE EOSINOPHILS # (AUTO) 0.4 10^3/uL (0.0-0.6); ABSOLUTE LYMPHOCYTES (AUTO) 2.8 10^3/uL (0.5-4.7); ABSOLUTE MONOCYTES (AUTO) 0.7 10^3/uL (0.1-1.4); ABSOLUTE NEUT (AUTO) 6.5 10^3/uL (1.7-8.2); BASOPHILS % (AUTO) 0.6 % (0-2); EOSINOPHILS % (AUTO) 3.9 % (0-6); HEMATOCRIT 40.6 % (37.9-51.0); HEMOGLOBIN 14.8 g/dL (13.5-17.0); LYMPHOCYTES % (AUTO) 26.8 % (13-45); MEAN CORPUSCULAR HEMOGLOBIN 29.8 pg (27.0-33.4); MEAN CORPUSCULAR HGB CONC 36.3 g/dL (32.0-36.0); MEAN CORPUSCULAR VOLUME 82 fl (80-97); MONOCYTES % (AUTO) 6.3 % (3-13); PLATELET COUNT 265 10^3/uL (150-450); RED BLOOD COUNT 4.96 10^6/uL (4.35-5.55); RED CELL DISTRIBUTION WIDTH 14.7 % (11.5-14.0); SEGMENTED NEUTROPHILS % (AUTO) 62.4 % (42-78); TOTAL CELLS COUNTED % (AUTO) 100 %; WHITE BLOOD COUNT 10.4 10^3/uL (4.0-10.5)
[2018-09-18 09:20] LABS: ALANINE AMINOTRANSFERASE 36 U/L (21-72); ALBUMIN 3.9 g/dL (3.5-5.0); ALKALINE PHOSPHATASE 107 U/L (38-126); ANION GAP 8 (5-19); ASPARTATE AMINO TRANSFERASE 29 U/L (17-59); BILIRUBIN,DIRECT 0.4 mg/dL (0.0-0.4); BILIRUBIN,TOTAL 0.6 mg/dL (0.2-1.3); BLOOD UREA NITROGEN 35 mg/dL (7-20); CALCIUM 9.5 mg/dL (8.4-10.2); CARBON DIOXIDE 25 mmol/L (22-30); CHLORIDE 106 mmol/L (98-107); GLUCOSE 189 mg/dL (75-110); POTASSIUM 4.6 mmol/L (3.6-5.0); SODIUM 139.1 mmol/L (137-145); TOTAL PROTEIN 7.3 g/dL (6.3-8.2)
--- NOTE | 2018-09-18 09:34 | ER Document Report ---
ED General - General Mode of Arrival: Ambulatory Information source: Patient TRAVEL OUTSIDE OF THE [place] IN LAST 30 DAYS: No <DAVID JANG - Last Filed: 09/18/18 15:38> <JUAN HDZ - Last Filed: 09/18/18 19:53> - General Chief Complaint: Cough Stated Complaint: COUGH, BODY ACHES Time Seen by Provider: 09/18/18 07:18 Notes: Patient is a 43-year-old male who presents with chief complaints of cough over the 6 weeks and body aches over the last 2 days. Patient reports he was seen here approximately 4 weeks ago and prescribed Tessalon Perles and prednisone. Patient reports he did not have the prednisone filled as he states he could not afford it. Patient reports Tessalon Perles and vabb-uht-fsnpcsp cough medications are not working. Patient denies any sputum production states that is a dry cough. Patient denies any chest pain. Denies any recent sick contacts. Patient does report past medical history of hypertension, states he has not taken his medications due to cost. (DAVID JANG) - Related Data Allergies/Adverse Reactions: Penicillins Allergy (Verified 08/13/18 09:17) Past Medical History - Social History Smoking Status: Former Smoker Family History: Reviewed & Not Pertinent, Arthritis, CVA, DM, Hypertension, Malignancy Patient has suicidal ideation: No Patient has homicidal ideation: No - Past Medical History Cardiac Medical History: Reports: Hx Hypercholesterolemia, Hx Hypertension Endocrine Medical History: Reports: Hx Diabetes Mellitus Type 1, Hx Diabetes Mellitus Type 2 Renal/ Medical History: Reports: Hx Kidney Stones. Denies: Hx Peritoneal Dialysis Psychiatric Medical History: Denies: Hx Depression Past Surgical History: Reports: Hx Abdominal Surgery - hernia as a child, Hx Cardiac Surgery - as an infant for "3 holes in heart", Hx Herniorrhaphy, Hx Inguinal Hernia - Immunizations Hx Diphtheria, Pertussis, Tetanus Vaccination: No <DAVID JANG - Last Filed: 09/18/18 15:38> Physical Exam <DAVID JANG - Last Filed: 09/18/18 15:38> <JUAN HDZ - Last Filed: 09/18/18 19:53> - Vital signs Vitals: Temp Pulse Resp BP Pulse Ox 97.8 F 105 H 16 169/110 H 98 09/18/18 06:17 09/18/18 06:17 09/18/18 06:17 09/18/18 06:17 09/18/18 06:17 - Notes Notes: PHYSICAL EXAMINATION: GENERAL: Well-appearing, well-nourished and in no acute distress. HEAD: Atraumatic, normocephalic. EYES: Pupils equal round and reactive to light, extraocular movements intact, sclera anicteric, conjunctiva are normal. ENT: Nares patent, oropharynx clear without exudates. Moist mucous membranes. NECK: Normal range of motion, supple without lymphadenopathy LUNGS: Crackles noted bilaterally to auscultation, no respiratory distress noted. HEART: Regular rate and rhythm without murmurs ABDOMEN: Soft, nontender, nondistended abdomen. No guarding, no rebound. No masses appreciated. Musculoskeletal: Normal range of motion, no pitting or edema. No cyanosis. NEUROLOGICAL: Cranial nerves grossly intact. Normal speech, normal gait. Normal sensory, motor exams PSYCH: Normal mood, normal affect. SKIN: Warm, Dry, normal turgor, no rashes or lesions noted. (DAVID JANG) Course - Laboratory Result Diagrams: 09/18/18 08:45 09/18/18 08:45 <DAVID JANG - Last Filed: 09/18/18 15:38> - Laboratory Result Diagrams: 09/18/18 08:45 09/18/18 08:45 <JUAN HDZ - Last Filed: 09/18/18 19:53> - Re-evaluation Re-evalutation: Patient's physical examination relatively unremarkable, scattered rhonchi is noted on auscultation of all lung scott. Considering that patient has had this cough going on for 6 weeks now will repeat a chest x-ray today and give him a DuoNeb treatment at this time. Patient's chest x-ray shows pulmonary vascular congestion. Patient does not have any history of CHF. Will add on lab work at this time. Patient updated on plan of care. In looking through patient's chart patient does have a history of acute renal failure with hospitalization which he did not disclose to me. Patient with elevated BUN and creatinine, elevated BNP. EKG was reviewed, rate of 100, sinus rhythm, normal axis, QTC 501, no ST segment elevations or depressions. Patient's blood pressure remains elevated. Will order 40 mg of IV Lasix as well as patient's home blood pressure medication. Updated patient on current plan of care, patient now reporting he has not taken his blood pressure medication in at least a month. Called and spoke with Dr. Mtz regarding admission for this patient's he referred me to Dr. Ball. Spoke with Dr. Ball who states he will come evaluate the patient. Sublingual nitroglycerin was ordered for patient's blood pressure. After one dose his systolic dropped from 170s-130s. Patient aymptomatic. Still awaiting hospitalist evaluation at this time. Patient accepted by hospitalist for admission. (DAVID JANG) - Vital Signs Vital signs: Temp Pulse Resp BP Pulse Ox 97.8 F 105 H 29 H 173/122 H 97 09/18/18 06:17 09/18/18 06:17 09/18/18 16:00 09/18/18 16:00 09/18/18 16:00 - Laboratory Laboratory results interpreted by me: 09/18/18 09/18/18 09/18/18 08:45 08:45 08:45 MCHC 36.3 H RDW 14.7 H BUN 35 H Creatinine 2.50 H Est GFR ( Amer) 34 L Est GFR (Non-Af Amer) 28 L Glucose 189 H Creatine Kinase CK-MB (CK-2) NT-Pro-B Natriuret Pep 2080 H Urine Protein Urine Glucose (UA) 09/18/18 09/18/18 09/18/18 10:04 10:04 10:47 MCHC RDW BUN Creatinine Est GFR ( Amer) Est GFR (Non-Af Amer) Glucose Creatine Kinase 292 H CK-MB (CK-2) 5.07 H NT-Pro-B Natriuret Pep Urine Protein >=500 H Urine Glucose (UA) >=500 H Discharge - Discharge Admitting Provider: Hospitalist Unit Admitted: Telemetry <DAVID JANG - Last Filed: 09/18/18 15:38> <JUAN HDZ - Last Filed: 09/18/18 19:53> - Discharge Clinical Impression: Hypertensive emergency Acute on chronic renal failure Qualifiers: Acute renal failure type: unspecified Chronic kidney disease stage: unspecified stage Qualified Code(s): N17.9 - Acute kidney failure, unspecified; N18.9 - Chronic kidney disease, unspecified; N18.9 - Chronic kidney disease, unspecified Acute congestive heart failure Qualifiers: Heart failure type: systolic Qualified Code(s): I50.21 - Acute systolic ( congestive) heart failure Pulmonary edema Qualifiers: Chronicity: acute Qualified Code(s): J81.0 - Acute pulmonary edema Condition: Good Disposition: ADMITTED INPATIENT
[2018-09-18] MEDS ORDERED: FUROSEMIDE INJ/PF 40 MG/4 ML SDV IV ONE (09:35)
[2018-09-18 10:53] LABS: CREATINE KINASE MB 5.07 ng/mL (<4.55); TROPONIN I 0.031 ng/mL
[2018-09-18 12:01] LABS: APPEARANCE,URINE CLEAR; BILIRUBIN,URINE NEGATIVE (NEGATIVE); COLOR,URINE STRAW; GLUCOSE, URINE >=500 mg/dL (NEGATIVE); KETONES,URINE NEGATIVE (NEGATIVE); LEUKOCYTE ESTERASE,URINE NEGATIVE (NEGATIVE); NITRITE,URINE NEGATIVE (NEGATIVE); PROTEIN,URINE >=500 mg/dL (NEGATIVE); URINE SPECIFIC GRAVITY 1.011; UROBILINOGEN,URINE NEGATIVE mg/dL (<2.0)
[2018-09-18] MEDS ORDERED: NITROGLYCERIN 0.4 MG/TAB 25 TAB/BOTTLE SL PRN (12:22)
[2018-09-18] MEDS ORDERED: GLUCAGON,HUMAN RECOMB 1 MG INJ IM PRN (12:26)
[2018-09-18] MEDS ORDERED: DEXTROSE 50%-WATER 25 GM/50 ML DISP.SYRIN IV PRN ×2 (12:26)
[2018-09-18] MEDS ORDERED: DEXTROSE 40% GEL 15 GM TUBE PO PRN ×2 (12:26)
[2018-09-18] MEDS ORDERED: ONDANSETRON HCL INJ/PF 4 MG/2 ML SDV IV ONE (12:42)
--- NOTE | 2018-09-18 12:59 | EKG REPORT ---
SEVERITY:- ABNORMAL ECG - SINUS TACHYCARDIA LEFT VENTRICULAR HYPERTROPHY PROLONGED QT INTERVAL : Confirmed by: Henrik Finnegan MD 18-Sep-2018 12:58:18
[2018-09-18] MEDS ORDERED: LOSARTAN POTASSIUM 25 MG TABLET PO ONE (14:30)
[2018-09-18] MEDS ORDERED: PREDNISONE 20 MG TABLET PO ONE (14:30)
[2018-09-18] MEDS: INSULIN LISPRO 100 UNIT/ML 3 ML VIAL SUBCUT PRN ×2 (17:20→22:29)
[2018-09-18] MEDS ORDERED: HYDRALAZINE HCL INJ/PF 20 MG/1 ML SDV IV PRN (18:06)
[2018-09-18] MEDS ORDERED: HYDRALAZINE HCL INJ/PF 20 MG/1 ML SDV ONE (18:55)
--- NOTE | 2018-09-18 20:44 | PDOC H&P ---
History of Present Illness Admission Date/PCP: 09/18/18 12:56 History of Present Illness: ISA LINDQUIST is a 43 year old male who presented with a 3-week history of a cough. He said he had taken some Tessalon as an outpatient but neither that nor the vzvh-prt-ccgmavc cough syrup it really helped. He said his airways feel inflamed and kind of sore. He has had some muscular soreness associated with cough. He has had no chest pain or shortness of breath. He is a hypertensive and diabetic is not taken his medicine in about a month for his blood pressure, but he said he has been taking his metformin. He also has a history of chronic kidney disease. He has a lot of social factors that he says is playing into his noncompliance, but he does work full-time. He had a slightly elevated BNP but otherwise has no stigmata of heart failure. He is being admitted for blood sugar and blood pressure control as well as further cardiac evaluation. Past Medical History Cardiac Medical History: Reports: Hyperlipidema, Hypertension Endocrine Medical History: Reports: Diabetes Mellitus Type 1, Diabetes Mellitus Type 2 Psychiatric Medical History: Denies: Depression Past Surgical History Past Surgical History: Reports: Herniorrhaphy Social History Smoking Status: Former Smoker Frequency of Alcohol Use: Rare - The patient has alcohol on the holidays. Hx Recreational Drug Use: No Drugs: None Hx Prescription Drug Abuse: No Family History Family History: Reviewed & Not Pertinent, Arthritis, CVA, DM, Hypertension, Malignancy Parental Family History Reviewed: Yes Children Family History Reviewed: Yes Sibling(s) Family History Reviewed.: Yes Medication/Allergy Home Medications: Acetaminophen with Codeine [Tylenol #3 Tablet] 1 each PO Q4HP PRN #30 tablet 09/18 Amlodipine Besylate [Norvasc 10 mg Tablet] 10 mg PO DAILY #30 tablet 08/13/18 Glipizide [Glipizide Xl] 5 mg PO DAILY #30 tab.er.24 08/13/18 Prednisone 5 mg PO ASDIR 6 Days #1 tab.ds.pk 08/13/18 Metformin HCl 1,000 mg PO BID 09/18/18 Allergies/Adverse Reactions: Penicillins Allergy (Verified 08/13/18 09:17) Review of Systems All systems: reviewed and no additional remarkable complaints except as stated - 10 point review of systems was conducted with the patient and was negative except as noted above Physical Exam Vital Signs: Temp Pulse Resp BP Pulse Ox 97.8 F 105 H 14 134/99 H 96 09/18/18 06:17 09/18/18 06:17 09/18/18 20:13 09/18/18 20:13 09/18/18 20:13 Intake & Output 09/17/18 09/18/18 09/19/18 06:59 06:59 06:59 Output Total 260 Balance -260 General appearance: PRESENT: no acute distress, cooperative, morbidly obese Head exam: PRESENT: atraumatic, normocephalic Eye exam: PRESENT: EOMI, PERRLA. ABSENT: conjunctival injection, nystagmus, scleral icterus Ear exam: PRESENT: normal external ear exam Mouth exam: PRESENT: moist, neck supple Throat exam: ABSENT: post pharyngeal erythema Neck exam: PRESENT: full ROM. ABSENT: carotid bruit, JVD, lymphadenopathy, meningismus, tenderness, thyromegaly Respiratory exam: PRESENT: clear to auscultation kay, symmetrical, unlabored. ABSENT: accessory muscle use, chest wall tenderness, crackles, rhonchi, tachypnea, wheezes Cardiovascular exam: PRESENT: RRR, +S1, +S2 Vascular exam: PRESENT: normal capillary refill GI/Abdominal exam: PRESENT: normal bowel sounds, soft. ABSENT: distended, guarding, rebound, tenderness Extremities exam: ABSENT: clubbing, pedal edema Musculoskeletal exam: PRESENT: ambulatory, normal inspection. ABSENT: deformity Neurological exam: PRESENT: alert, awake, oriented to person, oriented to place , oriented to time, oriented to situation, CN II-XII grossly intact, normal gait. ABSENT: motor sensory deficit Psychiatric exam: PRESENT: appropriate affect, normal mood Skin exam: PRESENT: dry, warm Results Impressions: Chest X-Ray 09/18/18 07:18 IMPRESSION: Pulmonary vascular congestion. Assessment & Plan - Diagnosis (1) Hypertensive urgency Is this a current diagnosis for this admission?: Yes Plan: We got get him on some medication for his blood pressure. We started him on an LISS inhibitor and calcium channel dagoberto. We have also got some as needed hydralazine ordered. I do not think he has had an acute injury to his kidneys from his blood pressure. His creatinine is the same as it was over a month ago. I am also not entirely convinced that he has some pulmonary edema. He does have some voltage criteria evidence of LVH on his EKG, so I am going to order an echocardiogram. (2) Stage III chronic kidney disease Is this a current diagnosis for this admission?: Yes Plan: I think his creatinine might be at baseline. Is the same as it was about a month ago. Also, his BUN is not elevated in proportion with his creatinine. BNP is also usually elevated in the setting of chronic kidney disease, and I think this could account for the elevation in his BNP. This is probably developed over time in response to his uncontrolled hypertension and diabetes. He also takes metformin, which would be contraindicated in this patient in which we are stopping. (3) Uncontrolled type 2 diabetes mellitus Qualifiers: Glycemic state: with hyperglycemia Qualified Code(s): E11.65 - Type 2 diabetes mellitus with hyperglycemia Is this a current diagnosis for this admission?: Yes Plan: He has been taking metformin which is not a good idea with his chronic kidney disease. I am going to cover him with sliding scale insulin for the time being , and will probably put him on glipizide when he is discharged. (4) Bronchitis Is this a current diagnosis for this admission?: Yes Plan: I am going to put him on some prednisone, which is liable to make his blood sugar even worse, but will covering him with sliding scale insulin for the time being. Hopefully we can treat him with a short burst of prednisone so as not to exacerbate his blood sugars any further. - Time Time Spent: 50 to 70 Minutes - Inpatient Certification Based on my medical assessment, after consideration of the patient's comorbidities, presenting symptoms, or acuity I expect that the services needed warrant INPATIENT care.: Yes I certify that my determination is in accordance with my understanding of Medicare's requirements for reasonable and necessary INPATIENT services [42 CFR 412.3e].: Yes Medical Necessity: Significant Comorbidiites Make Outpatient Treatment Too Risky , Need Close Monitoring Due to Risk of Patient Decompensation, Need For Continuous Telemetry Monitoring
[2018-09-19 07:13] LABS: ANION GAP 10 (5-19); BLOOD UREA NITROGEN 39 mg/dL (7-20); CALCIUM 9.5 mg/dL (8.4-10.2); CARBON DIOXIDE 23 mmol/L (22-30); CHLORIDE 102 mmol/L (98-107); CHOLESTEROL 263.36 mg/dL (0-200); GLUCOSE 183 mg/dL (75-110); POTASSIUM 4.4 mmol/L (3.6-5.0); SODIUM 135.2 mmol/L (137-145)
[2018-09-19 07:24] LABS: DIRECT LDL 55 mg/dL (<100)
[2018-09-19 07:26] LABS: TRIGLYCERIDES 731 mg/dL (<150)
[2018-09-19] MEDS: INSULIN LISPRO 100 UNIT/ML 3 ML VIAL SUBCUT PRN ×3 (08:46→17:30)
[2018-09-19] MEDS: AMLODIPINE BESYLATE 10 MG TABLET PO SCH (09:03)
[2018-09-19] MEDS ORDERED: LOSARTAN POTASSIUM 25 MG TABLET PO SCH (10:00)
[2018-09-19] MEDS ORDERED: ACETAMINOPHEN 325 MG TABLET PO PRN (18:37)
[2018-09-19] MEDS ORDERED: TRAMADOL HCL 50 MG TABLET PO PRN (18:37)
--- NOTE | 2018-09-19 22:53 | PDOC PROGRESS REPORT ---
Subjective Progress Note for:: 09/19/18 Subjective:: Patient is feeling slightly better but has a lot of musculoskeletal pain from coughing Reason For Visit: HYPERTENSIVE URGENCY,UNCONTROLLED DM,BRONCHITIS, Physical Exam Vital Signs: Temp Pulse Resp BP Pulse Ox 97.8 F 109 H 18 183/110 H 97 09/19/18 20:37 09/19/18 20:37 09/19/18 16:14 09/19/18 20:37 09/19/18 20:37 Intake & Output 09/18/18 09/19/18 09/20/18 06:59 06:59 06:59 Intake Total 500 736 Output Total 260 Balance 240 736 Weight 108.9 kg 107.1 kg General appearance: PRESENT: no acute distress, cooperative, well-developed Respiratory exam: PRESENT: clear to auscultation kay, symmetrical, unlabored. ABSENT: rales, rhonchi, wheezes Cardiovascular exam: PRESENT: RRR, +S1, +S2 GI/Abdominal exam: PRESENT: normal bowel sounds, soft. ABSENT: tenderness Musculoskeletal exam: PRESENT: other - Tender over the thoracolumbar musculature on the back Neurological exam: PRESENT: alert, awake, oriented to person, oriented to place, oriented to time, oriented to situation, CN II-XII grossly intact Psychiatric exam: PRESENT: appropriate affect, normal mood Skin exam: PRESENT: dry, normal color, warm Results Laboratory Results: 09/18/18 08:45 09/19/18 05:00 09/19/18 05:00 Sodium 135.2 L Potassium 4.4 Chloride 102 Carbon Dioxide 23 Anion Gap 10 BUN 39 H Creatinine 2.64 H Est GFR ( Amer) 32 L Est GFR (Non-Af Amer) 27 L Glucose 183 H Calcium 9.5 Triglycerides 731 H Cholesterol 263.36 H LDL Cholesterol Direct 55 VLDL Cholesterol UNABLE TO CALCULATE HDL Cholesterol 39 L 09/18/18 09/18/18 09/18/18 08:45 10:04 10:04 Creatine Kinase 292 H CK-MB (CK-2) 5.07 H Troponin I 0.031 NT-Pro-B Natriuret Pep 2080 H Impressions: Chest X-Ray 09/18/18 07:18 IMPRESSION: Pulmonary vascular congestion. Assessment & Plan - Diagnosis (1) Bronchitis Is this a current diagnosis for this admission?: Yes Plan: Feeling slightly better. Continue IV antibiotics. (2) Uncontrolled type 2 diabetes mellitus Qualifiers: Glycemic state: with hyperglycemia Qualified Code(s): E11.65 - Type 2 diabetes mellitus with hyperglycemia Is this a current diagnosis for this admission?: Yes Plan: With his current creatinine clearance we are no longer going to use metformin. I have started glipizide 5 mg twice daily. (3) Hyperlipidemia Qualifiers: Hyperlipidemia type: mixed hyperlipidemia Qualified Code(s): E78.2 - Mixed hyperlipidemia Is this a current diagnosis for this admission?: Yes Plan: He has markedly elevated cholesterol and triglycerides. I will start atorvastatin 40 mg daily. He will likely benefit from fibrillate therapy in the near future. (4) Hypertensive urgency Is this a current diagnosis for this admission?: Yes Plan: His blood pressures are still high. He is now on amlodipine and losartan. Increase losartan to 50 mg daily and started metoprolol 25 mg twice daily. - Time Time Spent with patient: 15-24 minutes Anticipated discharge: Home
[2018-09-19] MEDS ORDERED: ATORVASTATIN CALCIUM 40 MG TABLET PO ONE (23:00)
[2018-09-19] MEDS ORDERED: METOPROLOL TARTRATE 25 MG TABLET PO ONE (23:05)
[2018-09-20 06:43] LABS: ANION GAP 9 (5-19); BLOOD UREA NITROGEN 41 mg/dL (7-20); CALCIUM 9.2 mg/dL (8.4-10.2); CARBON DIOXIDE 22 mmol/L (22-30); CHLORIDE 103 mmol/L (98-107); GLUCOSE 196 mg/dL (75-110); POTASSIUM 4.9 mmol/L (3.6-5.0); SODIUM 134.1 mmol/L (137-145)
[2018-09-20] MEDS ORDERED: GLIPIZIDE 5 MG TABLET PO SCH (08:00)
--- NOTE | 2018-09-20 09:13 | PDOC DISCHARGE SUMMARY ---
General - Admit/Disc Date/PCP Admission Date/Primary Care Provider: 09/18/18 12:56 Discharge Date: 09/20/18 - Discharge Diagnosis (1) Bronchitis Is this a current diagnosis for this admission?: Yes Summary: The patient was treated recently. Was discharged on subsequently returned. I will discharge him on a Z-Thomas with Robitussin AC for cough suppression. I also provided a return to work note for September 24. (2) Uncontrolled type 2 diabetes mellitus Is this a current diagnosis for this admission?: Yes Summary: The patient was on metformin but his GFR on this admission was 29. I discontinue the metformin. He will be on glipizide 5 mg twice daily to start. He needs to follow-up with a primary care physician to monitor this. (3) Hyperlipidemia Is this a current diagnosis for this admission?: Yes Summary: He was found to have marked hypercholesterolemia and hyper triglyceridemia. He was not on any statin therapy. I have started him on atorvastatin 40 mg daily. He may need a fibrate medication as well. (4) Hypertensive urgency Is this a current diagnosis for this admission?: Yes Summary: The main reason for his hypertension is noncompliance. The patient states that he has been unable to obtain his medications for the last several weeks. At the time of discharge he will be on losartan 50 mg daily (covers diabetic nephropathy therapy as well), amlodipine 10 mg daily and metoprolol 25 mg twice daily. With compliance this should adequately control his blood pressure. (5) Noncompliance Is this a current diagnosis for this admission?: Yes Summary: Patient reports financial difficulties and this is the reason for his inability to get medications. I have asked discharge planning see the patient and identify local resources. Of note the patient is employed at [employer]. - Additional Information Resuscitation Status: Full Code Discharge Diet: Diabetic Discharge Activity: Activity As Tolerated Prescriptions: Amlodipine Besylate [Norvasc 10 mg Tablet] 10 mg PO DAILY #30 tablet Atorvastatin Calcium [Lipitor 40 mg Tablet] 40 mg PO QHS 30 Days #30 tablet Azithromycin [Zithromax 250 mg Tablet] 250 mg PO ASDIR PRN #6 tablet PRN Reason: Glipizide [Glucotrol 5 mg Tablet] 5 mg PO BIDACBS 30 Days #60 tablet Guaifenesin/Codeine Phos [Robitussin-AC Syrup 59 ml] 10 ml PO QIDP PRN 7 Days #180 ml PRN Reason: Losartan Potassium [Cozaar 50 mg Tablet] 50 mg PO DAILY 30 Days #30 tablet Metoprolol Tartrate [Lopressor 25 mg Tablet] 25 mg PO Q12 30 Days #60 tablet Home Medications: Acetaminophen with Codeine [Tylenol #3 Tablet] 1 each PO Q4HP PRN #30 tablet 08/13/18 Amlodipine Besylate [Norvasc 10 mg Tablet] 10 mg PO DAILY #30 tablet 09/20/18 Amlodipine Besylate [Norvasc 10 mg Tablet] 10 mg PO DAILY 30 Days #0 tablet 09/20/18 Atorvastatin Calcium [Lipitor 40 mg Tablet] 40 mg PO QHS 30 Days #30 tablet 09/20/18 Azithromycin [Zithromax 250 mg Tablet] 250 mg PO ASDIR PRN #6 tablet 09/20/18 Glipizide [Glucotrol 5 mg Tablet] 5 mg PO BIDACBS 30 Days #60 tablet 09/20/18 Guaifenesin/Codeine Phos [Robitussin-AC Syrup 59 ml] 10 ml PO QIDP PRN 7 Days #180 ml 09/20/18 Losartan Potassium [Cozaar 50 mg Tablet] 50 mg PO DAILY 30 Days #30 tablet 09/20/18 Metoprolol Tartrate [Lopressor 25 mg Tablet] 25 mg PO Q12 30 Days #60 tablet 09/20/18 History of Present Illness Patient complains of: Cough History of Present Illness: ISA LINDQUIST is a 43 year old male who has a history of hypertension and diabetes with hyperlipidemia and chronic kidney disease. He was just in the hospital for a cough. He failed outpatient treatment. There is a question of noncompliance. He presented back with cough as well as markedly increased blood pressure and serum glucose. Hospital Course Hospital Course: Relatively benign hospital course. With the addition of medications the blood pressure and glucose control improved. He needs to complete his antibiotic therapy as an outpatient. From all the coughing he has muscle soreness and I explained that this will go away over the course of a week or so. He should avoid nonsteroidal anti-inflammatory medications because of his chronic kidney disease. Physical Exam Vital Signs: Temp Pulse Resp BP Pulse Ox 97.6 F 93 16 129/97 H 98 09/20/18 08:00 09/20/18 08:00 09/20/18 08:00 09/20/18 08:00 09/20/18 08:00 Intake & Output 09/19/18 09/20/18 09/21/18 06:59 06:59 06:59 Intake Total 500 736 Output Total 260 Balance 240 736 Weight 107.1 kg 106.6 kg General appearance: PRESENT: no acute distress, cooperative, well-developed Respiratory exam: PRESENT: clear to auscultation kay, symmetrical, unlabored, other - Frequent cough. ABSENT: accessory muscle use, prolonged expiratory phas, rhonchi, wheezes Cardiovascular exam: PRESENT: RRR, +S1, +S2 GI/Abdominal exam: PRESENT: normal bowel sounds, soft. ABSENT: tenderness Musculoskeletal exam: PRESENT: tenderness - Over the thoracolumbar muscles of the back (from coughing) Neurological exam: PRESENT: alert, awake, oriented to person, oriented to place, oriented to time, oriented to situation, CN II-XII grossly intact Psychiatric exam: PRESENT: anxious - Worried about being able to acquire his medications. He does realize the importance of taking his medications. Focused psych exam: ABSENT: restlessness Skin exam: PRESENT: dry, normal color, warm Results Laboratory Results: 09/18/18 08:45 09/20/18 05:52 09/20/18 05:52 Sodium 134.1 L Potassium 4.9 Chloride 103 Carbon Dioxide 22 Anion Gap 9 BUN 41 H Creatinine 2.34 H Est GFR ( Amer) 37 L Est GFR (Non-Af Amer) 31 L Glucose 196 H Calcium 9.2 09/18/18 09/18/18 09/18/18 08:45 10:04 10:04 Creatine Kinase 292 H CK-MB (CK-2) 5.07 H Troponin I 0.031 NT-Pro-B Natriuret Pep 2080 H Impressions: Chest X-Ray 09/18/18 07:18 IMPRESSION: Pulmonary vascular congestion. Qualifiers - * PATIENT BEING DISCHARGED WITH ANY OF THE FOLLOWING DIAGNOSIS: No Plan Discharge Plan: He was follow-up with the clinic as I do not believe he has a primary care physi teresa. They should refer him to nephrology although with chronic kidney disease he may be already established. Time Spent: Less than 30 Minutes
[2018-09-20] MEDS: AMLODIPINE BESYLATE 10 MG TABLET PO SCH (09:37)
[2018-09-20] MEDS ORDERED: LOSARTAN POTASSIUM 50 MG TABLET PO SCH (10:00)
[2018-09-20] MEDS ORDERED: METOPROLOL TARTRATE 25 MG TABLET PO SCH (10:00)
[2018-09-20 12:07] VITALS: BP 169/110
[2018-09-20] MEDS ORDERED: ATORVASTATIN CALCIUM 40 MG TABLET PO SCH (22:00)
--- NOTE | 2018-09-20 22:52 | XCELERA REPORT ---
[address] [address] Transthoracic Echocardiogram Report Name: ISA LINDQUIST Age: 43 yrs Gender: Male : 1975 Patient Status: Inpatient Patient Location: [address] [place] [address] Study Date: 09/18/2018 07:24 PM Height: 55 in Weight: 240 lb BSA: 1.9 m2 Procedure: A two-dimensional transthoracic echocardiogram with color flow and Doppler was performed. Study Quality: Poor. The study was technically difficult with many images being suboptimal in quality. Reason For Study: dyspnea, uncontrolled HTN History: dyspnea, uncontrolled HTN. Ordering Physician: JHONATAN KEN Performed By: Vivi Fowler Interpretation Summary Probably normal LV size and moderately reduced LVEF.No other inerpretation possible.Recommend MUGA for RVEF and LVEF and / or TAMANNA. MMode/2D Measurements & Calculations RVDd: 3.1 cm LVIDd: 5.6 cm FS: 22.7 % Ao root diam: 2.7 cm IVSd: 1.0 cm LVIDs: 4.3 cm EDV(Teich): 155.3 ml Ao root area: 5.8 cm2 LVPWd: 0.96 cm ESV(Teich): 85.3 ml LA dimension: 4.0 cm EF(Teich): 45.0 % Doppler Measurements & Calculations MV E max jamie: MV P1/2t max jamie: Ao V2 max: LV V1 max P.5 cm/sec 134.7 cm/sec 139.9 cm/sec 4.9 mmHg MV P1/2t: 44.3 msec Ao max PG: LV V1 max: MVA(P1/2t): 5.0 cm2 7.8 mmHg 110.6 cm/sec MV dec slope: 889.3 cm/sec2 MV dec time: 0.13 sec TV V2 max: PA V2 max: TR max jamie: MV P1/2t-pr_phl: 160.0 cm/sec 121.6 cm/sec 199.8 cm/sec 44.3 msec TV max PG: PA max P.9 mmHg TR max P.2 mmHg 16.0 mmHg Left Ventricle Probably normal LV size and moderately reduced LVEF.No other inerpretation possible.Recommend MUGA for RVEF and LVEF and / or TAMANNA. : JHONATAN KEN > Virgen Virk
== END 2018-09-20 13:06 | disposition home or self-care (01) | DRG 305 ==
LOC: ER 06:12 → EH 12:56 → 4S 21:21
PROVIDERS: ADMIT Family Medicine; ATTEND Family Medicine
DX: I16.0 Hypertensive urgency (principal); I12.9 Hypertensive chronic kidney disease with stage 1 through stage 4 chronic kidney disease, or unspecified chronic kidney disease; J40 Bronchitis, not specified as acute or chronic; E11.22 Type 2 diabetes mellitus with diabetic chronic kidney disease; E11.65 Type 2 diabetes mellitus with hyperglycemia; N18.3 Chronic kidney disease, stage 3 (moderate); E78.00 Pure hypercholesterolemia, unspecified; Z91.19 Patient's noncompliance with other medical treatment and regimen; Z79.84 Long term (current) use of oral hypoglycemic drugs; Z79.899 Other long term (current) drug therapy
CPT/HCPCS: 36415; 71046; 80048; 80053; 80061; 81001; 82550; 82553; 82962; 83036; 83880; 84484; 85025; 90471; 90686; 93005; 93010; 93306; 94640; 96374; 96375; 99285; G0008; J0360; J1815; J1940; J2405; J7512; J7620

== ENCOUNTER 2018-10-08 22:00 | Emergency (ER) | payer SELFPAY ==
[2018-10-09] MEDS ORDERED: BENZONATATE 100 MG CAPSULE PO ONE (00:02)
[2018-10-09] MEDS ORDERED: ALBUTEROL SULFATE 0.083% NEB 2.5 MG/3 ML AMPUL NEB ONE (00:02)
[2018-10-09] MEDS ORDERED: ACETAMINOPHEN 325 MG TABLET PO ONE (00:02)
--- NOTE | 2018-10-09 01:10 | RADIOLOGY REPORT (SQ) ---
EXAM DESCRIPTION: XR CHEST 2 VIEWS COMPLETED DATE/TME: 10/09/2018 00:02 CLINICAL HISTORY: 43 years, Male, cough COMPARISON: 08/13/2018 chest x-ray NUMBER OF VIEWS: 2 TECHNIQUE: Frontal and lateral views of the chest LIMITATIONS: None. FINDINGS: Heart size is normal. Lungs are clear. No pneumothorax IMPRESSION: Negative chest copyright 2010 [employer]- All Rights Reserved
--- NOTE | 2018-10-09 01:59 | ER Document Report ---
ED General - General Chief Complaint: Flu Symptoms Stated Complaint: COUGHING,SHORTNESS OF BREATH,BODY ACHES Time Seen by Provider: 10/08/18 23:47 Notes: Patient is a 43-year-old male presents with complaint of runny nose cough and congestion. He says is been coughing quite a bit for the last couple of days. No fever. No vomiting. Patient says he was admitted to the hospital in September because he had a bronchitis. Was treated that time but he was actually admitted because he had uncontrolled hypertension with hyperglycemia because he is noncompliant with medications. Patient says since that has been take his medications his blood pressures been well controlled and had no further issues regards to that. Says he was doing well until now when he started having recurrent coughing. He does not smoke. No history of asthma. No fevers. No vomiting. No other complaints at this time. No chest pain. TRAVEL OUTSIDE OF THE [place] IN LAST 30 DAYS: No - Related Data Allergies/Adverse Reactions: Penicillins Allergy (Verified 08/13/18 09:17) Past Medical History - Social History Smoking Status: Former Smoker Chew tobacco use (# tins/day): No Frequency of alcohol use: Rare Drug Abuse: None Family History: Reviewed & Not Pertinent, Arthritis, CVA, DM, Hypertension, Malignancy Patient has suicidal ideation: No Patient has homicidal ideation: No - Past Medical History Cardiac Medical History: Reports: Hx Hypercholesterolemia, Hx Hypertension Endocrine Medical History: Reports: Hx Diabetes Mellitus Type 1, Hx Diabetes Mellitus Type 2 Renal/ Medical History: Reports: Hx End Stage Renal Disease, Hx Kidney Stones. Denies: Hx Peritoneal Dialysis Psychiatric Medical History: Denies: Hx Depression Past Surgical History: Reports: Hx Abdominal Surgery - hernia as a child, Hx Cardiac Surgery - as an infant for "3 holes in heart", Hx Herniorrhaphy, Hx Inguinal Hernia - Immunizations Hx Diphtheria, Pertussis, Tetanus Vaccination: No Review of Systems - Review of Systems Notes: My Normal Review Basic REVIEW OF SYSTEMS: CONSTITUTIONAL : Denies fever, chills, or sweats. EENT: Congestion CARDIOVASCULAR: Denies chest pain. RESPIRATORY: Cough GASTROINTESTINAL: Denies abdominal pain. Denies nausea, vomiting, or diarrhea. MUSCULOSKELETAL: Denies neck or back pain or joint pain or swelling. SKIN: Denies rash or skin lesions. NEUROLOGICAL: Denies altered mental status or loss of consciousness. ALL OTHER SYSTEMS REVIEWED AND NEGATIVE. Physical Exam - Vital signs Vitals: Temp Pulse Resp BP Pulse Ox 99.0 F 98 18 139/92 H 98 10/08/18 22:10 10/08/18 22:10 10/08/18 22:10 10/08/18 22:10 10/08/18 22:10 - Notes Notes: General Appearance: Well nourished, alert, cooperative, no acute distress, no obvious discomfort. Well-appearing. Some recurrent dry cough on exam. Vitals: reviewed, See vital signs table. Head: no swelling or tenderness to the head Eyes: PERRL, EOMI, Conjuctiva clear Mouth: No decreasd moisture Throat: No tonsillar inflammation, No airway obstruction, No lymphadenopathy Neck: Supple, no neck tenderness, No neck swelling Lungs: No wheezing, No rales, No rhonci, No accessory muscle use, good air exchange bilaterally. Heart: Normal rate, Regular rythm, No murmur, no rub Extremities: good pulses in all extremities, no swelling or tenderness in the extremities, no edema. Skin: warm, dry, appropriate color, no rash Neuro: speech clear, oriented x 3, normal affect, responds appropriately to questions. Course - Re-evaluation Re-evalutation: 10/09/18 06:25 Patient has recurrent dry cough on exam. I did give a chest x-ray to make sure is no evidence of pulmonary edema is patient says that he does have some history of CHF. Chest x-ray is clear. No evidence of pneumonia either. His lung scott are clear. We will place him on Tessalon Perles for cough. I encouraged him to follow-up closely with his primary care doctor for reevaluation. I enc ouraged him return to ER if he has chest pain, difficulty breathing, or if he feels that he is worsening in any way. Patient agrees with plan will be discharged home. Dictation of this chart was performed using voice recognition software; therefore, there may be some unintended grammatical errors. - Vital Signs Vital signs: Temp Pulse Resp BP Pulse Ox 98.8 F 100 28 H 128/85 H 99 10/09/18 02:18 10/09/18 02:18 10/09/18 02:18 10/09/18 02:18 10/09/18 02:18 Discharge - Discharge Clinical Impression: Cough Condition: Good Disposition: HOME, SELF-CARE Additional Instructions: Please use the inhaler as 2 puffs every 4 hours as needed for cough. please take the cough medicine as prescribed. Please return to the ER if you have worsening cough, fevers, or feel that you are worsening. Prescriptions: Benzonatate [Tessalon Perle 100 mg Capsule] 100 mg PO ASDIR PRN #15 cap PRN Reason: Cough Forms: Return to Work
[2018-10-09] MEDS ORDERED: ALBUTEROL SULFATE HFA (90 MCG/PUFF) 8 GM MDI (1 MDI/ER DISP) IH ONE (02:00)
[2018-10-09 02:19] VITALS: BP 128/85
== END 2018-10-09 02:20 | disposition home or self-care (01) ==
LOC: ER 22:00
DX: R05 Cough (principal); R06.02 Shortness of breath; M79.10 Myalgia, unspecified site; E78.00 Pure hypercholesterolemia, unspecified; E11.22 Type 2 diabetes mellitus with diabetic chronic kidney disease; I12.0 Hypertensive chronic kidney disease with stage 5 chronic kidney disease or end stage renal disease; N18.6 End stage renal disease; Z88.0 Allergy status to penicillin
CPT/HCPCS: 94640; 99283; 71046; J3490

== ENCOUNTER 2019-03-03 19:57 | Emergency (ER) | payer SELFPAY ==
[2019-03-03] MEDS ORDERED: ACETAMINOPHEN 325 MG TABLET PO ONE (23:16)
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
[2019-03-04] MEDS ORDERED: DEXAMETHASONE SOD PHOS INJ 10 MG/1 ML VIAL IM ONE (01:00)
[2019-03-04] MEDS ORDERED: DIPH/PERTUSS(ACELL)/TETANUS VAC/PF 0.5 ML SYR (>=10YO) IM ONE (01:00)
[2019-03-04] MEDS ORDERED: MORPHINE SULFATE 10 MG/ML INJ IM ONE (01:02)
[2019-03-04 02:06] VITALS: BP 189/117
== END 2019-03-04 02:03 | disposition home or self-care (01) ==
LOC: ER 19:57
DX: S01.112A Laceration without foreign body of left eyelid and periocular area, initial encounter (principal); S80.212A Abrasion, left knee, initial encounter; M54.5 Low back pain; V17.2XXA Unspecified pedal cyclist injured in collision with fixed or stationary object in nontraffic accident, initial encounter; Y93.55 Activity, bike riding; Y92.480 Sidewalk as the place of occurrence of the external cause; I12.0 Hypertensive chronic kidney disease with stage 5 chronic kidney disease or end stage renal disease; N18.6 End stage renal disease; E11.22 Type 2 diabetes mellitus with diabetic chronic kidney disease
CPT/HCPCS: 99283; 96372; 90471; 73564; 72110; 70486; 90715; J2270; J1100

== ENCOUNTER 2019-06-01 16:45 | Emergency (ER) | payer SELFPAY ==
[2019-06-01] MEDS ORDERED: ONDANSETRON HCL INJ/PF 4 MG/2 ML SDV IV ONE (17:01)
--- NOTE | 2019-06-01 17:03 | ER Document Report ---
ED Medical Screen (RME) - General Chief Complaint: Flank Pain Stated Complaint: FLANK PAIN Time Seen by Provider: 06/01/19 17:01 Primary Care Provider: ABRAM SMITH [Primary Care Provider] - Follow up as needed Information source: Patient Notes: Patient presents complaining of bilateral lateral side pain that started an hour prior to arrival. Patient states pain radiates to the flank area. Patient does complain of nausea. No vomiting, no diarrhea no fever. Patient denies any urinary symptoms. hx: Hypertension, dyslipidemia, chronic kidney disease, diabetes I have greeted and performed a rapid initial assessment of this patient. A comprehensive ED assessment and evaluation of the patient, analysis of test results and completion of the medical decision making process will be conducted by additional ED providers. TRAVEL OUTSIDE OF THE [place] IN LAST 30 DAYS: No - Related Data Allergies/Adverse Reactions: Penicillins Allergy (Verified 06/01/19 16:46) Past Medical History - Past Medical History Cardiac Medical History: Reports: Hx Hypercholesterolemia, Hx Hypertension Endocrine Medical History: Reports: Hx Diabetes Mellitus Type 1, Hx Diabetes Mellitus Type 2 Renal/ Medical History: Reports: Hx End Stage Renal Disease, Hx Kidney Stones. Denies: Hx Peritoneal Dialysis Psychiatric Medical History: Denies: Hx Depression Past Surgical History: Reports: Hx Abdominal Surgery - hernia as a child, Hx Cardiac Surgery - as an infant for "3 holes in heart", Hx Herniorrhaphy, Hx Inguinal Hernia - Immunizations Hx Diphtheria, Pertussis, Tetanus Vaccination: No History of Influenza Vaccine for 07/2017 - 11/2017 Season: No Physical Exam - Vital signs Vitals: Temp Pulse Resp BP Pulse Ox 98.3 F 82 16 172/114 H 98 06/01/19 16:52 06/01/19 16:52 06/01/19 16:52 06/01/19 16:52 06/01/19 16:52 - Abdominal Tenderness: Tender - Flank Course - Vital Signs Vital signs: Temp Pulse Resp BP Pulse Ox 98.3 F 82 16 171/108 H 98 06/01/19 16:52 06/01/19 16:52 06/01/19 16:52 06/01/19 16:54 06/01/19 16:52 Doctor's Discharge - Discharge Referrals: ABRAM SMITH [Primary Care Provider] - Follow up as needed
[2019-06-01 18:05] LABS: ABSOLUTE BASOPHILS # (AUTO) 0.1 10^3/uL (0.0-0.2); ABSOLUTE EOSINOPHILS # (AUTO) 0.4 10^3/uL (0.0-0.6); ABSOLUTE LYMPHOCYTES (AUTO) 2.8 10^3/uL (0.5-4.7); ABSOLUTE MONOCYTES (AUTO) 0.8 10^3/uL (0.1-1.4); ABSOLUTE NEUT (AUTO) 6.6 10^3/uL (1.7-8.2); BASOPHILS % (AUTO) 0.7 % (0-2); EOSINOPHILS % (AUTO) 4.2 % (0-6); HEMATOCRIT 38.5 % (37.9-51.0); LYMPHOCYTES % (AUTO) 26.1 % (13-45); MEAN CORPUSCULAR HEMOGLOBIN 28.3 pg (27.0-33.4); MEAN CORPUSCULAR HGB CONC 33.8 g/dL (32.0-36.0); MEAN CORPUSCULAR VOLUME 84 fl (80-97); MONOCYTES % (AUTO) 7.8 % (3-13); PLATELET COUNT 242 10^3/uL (150-450); SEGMENTED NEUTROPHILS % (AUTO) 61.2 % (42-78); TOTAL CELLS COUNTED % (AUTO) 100 %; WHITE BLOOD COUNT 10.8 10^3/uL (4.0-10.5)
--- NOTE | 2019-06-01 18:07 | ER Document Report ---
ED General - General Chief Complaint: Flank Pain Stated Complaint: FLANK PAIN Time Seen by Provider: 06/01/19 17:01 Primary Care Provider: [facility] [Primary Care Provider] - Follow up as needed TRAVEL OUTSIDE OF THE [place] IN LAST 30 DAYS: No - HPI Notes: Patient is a 43-year-old male with a history of chronic kidney disease, DM type 2, HTN, HLD who presents complaining of left lateral and left lower quadrant abdominal pain that is been present throughout the day today when he was at work which prompted him to come here for evaluation because he could not finish his shift. Patient states that the pain does not radiate. He does feel occasional soreness to his right mid back as well. He did have some nausea without vomiting. Patient states that he has been having normal bowel movements without any melena or hematochezia. He was urinating normally recently. He does report history of kidney stones, but is not sure this pain is similar to that. He has no other concerns or complaints. No surgical history to his abdomen aside from a hernia repair when he was a child. Denies any headache, fever, URI, sore throat, chest pain, palpitations, syncope, cough, shortness of breath, wheeze, dyspnea, vomiting/diarrhea, urinary retention, dysuria, hematuria, loss of control of bowel or bladder, numbness/tingling, saddle anesthesia, muscle paralysis/weakness, or rash. - Related Data Allergies/Adverse Reactions: Penicillins Allergy (Verified 06/01/19 16:46) Past Medical History - General Information source: Patient - Social History Smoking Status: Unknown if Ever Smoked Family History: Reviewed & Not Pertinent, Arthritis, CVA, DM, Hypertension, Malignancy Patient has suicidal ideation: No Patient has homicidal ideation: No - Past Medical History Cardiac Medical History: Reports: Hx Hypercholesterolemia, Hx Hypertension Endocrine Medical History: Reports: Hx Diabetes Mellitus Type 1, Hx Diabetes Mellitus Type 2 Renal/ Medical History: Reports: Hx End Stage Renal Disease, Hx Kidney Stones. Denies: Hx Peritoneal Dialysis Psychiatric Medical History: Denies: Hx Depression Past Surgical History: Reports: Hx Abdominal Surgery - hernia as a child, Hx Cardiac Surgery - as an for "3 holes in heart", Hx Herniorrhaphy, Hx Inguinal Hernia - Immunizations Hx Diphtheria, Pertussis, Tetanus Vaccination: No Review of Systems - Review of Systems -: Yes All other systems reviewed and negative Physical Exam - Vital signs Vitals: Temp Pulse Resp BP Pulse Ox 98.3 F 82 16 172/114 H 98 06/01/19 16:52 06/01/19 16:52 06/01/19 16:52 06/01/19 16:52 06/01/19 16:52 - Notes Notes: PHYSICAL EXAMINATION: GENERAL: Well-appearing, well-nourished and in no acute distress. HEAD: Atraumatic, normocephalic. EYES: Pupils equal round and reactive to light, extraocular movements intact, sclera anicteric, conjunctiva are normal. ENT: Nares patent and without discharge. oropharynx clear without exudates. No tonsilar hypertrophy or erythema. Moist mucous membranes. NECK: Normal range of motion, supple without lymphadenopathy LUNGS: Breath sounds clear to auscultation bilaterally and equal. No wheezes rales or rhonchi. HEART: Regular rate and rhythm without murmurs, rubs, gallops. ABDOMEN: Soft, nondistended abdomen. No guarding, no rebound. Normal bowel sounds present. + left CVA tenderness. + mild tenderness LLQ. Musculoskeletal: FROM to passive/active. Strength 5+/5. Extremities: No cyanosis, clubbing, or edema b/l. Peripheral pulses 2+. Capillary refill less than 3 seconds. NEUROLOGICAL: Normal speech, normal gait. Normal sensory, motor exams PSYCH: Normal mood, normal affect. SKIN: Warm, Dry, normal turgor, no rashes or lesions noted. Course - Re-evaluation Re-evalutation: 06/01/19 20:32 Patient is an afebrile, well-hydrated, 43-year-old male who presents with abdominal pain, unspecified, possible passed kidney stone. Vitals are acceptable without significant tachycardia, tachypnea, or hypoxia. PE is otherwise unremarkable. Patient is nontoxic-appearing and is tolerating p.o. without difficulty. His abdomen is currently soft and nontender throughout. Patient states that he is feeling much better after receiving fluids and nausea medications. Urinalysis did show hematuria which does make me concerned for possible passed stone. Labs are otherwise unremarkable aside from a slight bump in his creatinine. Patient was given fluids. He is still urinating normally. No evidence of urinary infection. CT scan otherwise unremarkable. No further work-up warranted. Low suspicion/risk for acute appendicitis, bowel obst ruction, acute cholecystitis, perforated diverticulitis, incarcerated hernia, pancreatitis, perforated ulcer, peritonitis, sepsis, testicular torsion, or other systemic emergent condition at this time. Patient is aware that his condition can change from initial presentation and he needs to monitor symptoms closely and seek medical attention if any acute changes. Conservative measures otherwise for symptoms. Recheck with PCM in 2-3 days. Consider consult with a business transformation analyst. Return to the ED with any worsening/concerning symptoms otherwise as reviewed in discharge. Patient is in agreement. - Vital Signs Vital signs: Temp Pulse Resp BP Pulse Ox 98.3 F 82 16 171/108 H 98 06/01/19 16:52 06/01/19 16:52 06/01/19 16:52 06/01/19 16:54 06/01/19 16:52 - Laboratory Result Diagrams: 06/01/19 17:35 06/01/19 17:35 Laboratory results interpreted by me: 06/01/19 06/01/19 06/01/19 17:35 17:35 17:35 WBC 10.8 H Hgb 13.0 L RDW 15.0 H BUN 40 H Creatinine 3.85 H Est GFR ( Amer) 21 L Est GFR (MDRD) Non-Af 17 L Urine Protein >=500 H Urine Blood MODERATE H Discharge - Discharge Clinical Impression: Nonspecific abdominal pain Condition: Stable Disposition: HOME, SELF-CARE Instructions: Abdominal Pain ([facility]) Additional Instructions: It has been noted that he did have a slight elevation in your creatinine levels which need to be monitored closely by family doctor or business transformation analyst. Maintain adequate fluid and food intake [place] diet ([employer] Bananas, rice, apples, toast, etc Zofran as needed tylenol if needed Monitor for any worsening symptoms Make sure you are staying hydrated enough to urinate and have normal BM's Recheck with your PCM in 2-3 days Consider consult with nephrology for ongoing/worsening symptoms Return to the ED with any worsening symptoms and/or development of fever, headache, chest pain, palpitations, syncope, shortness of breath, trouble breathing, abdominal pain, n/v/d, blood in stool/urine, weakness, or other worsening symptoms that are concerning to you. Prescriptions: Ondansetron [Zofran Odt 4 mg Tablet] 1 - 2 tab PO Q4H PRN #15 tab.rapdis PRN Reason: For Nausea/Vomiting Forms: Elevated Blood Pressure [facility] [Primary [facility]] - Follow up as needed Suzy ROBERSON MD [ACTIVE STAFF] - Follow up as needed
[2019-06-01 18:08] LABS: APPEARANCE,URINE CLEAR; BILIRUBIN,URINE NEGATIVE (NEGATIVE); COLOR,URINE YELLOW; GLUCOSE, URINE NEGATIVE (NEGATIVE); KETONES,URINE NEGATIVE (NEGATIVE); LEUKOCYTE ESTERASE,URINE NEGATIVE (NEGATIVE); NITRITE,URINE NEGATIVE (NEGATIVE); PROTEIN,URINE >=500 mg/dL (NEGATIVE); URINE SPECIFIC GRAVITY 1.016; UROBILINOGEN,URINE NEGATIVE mg/dL (<2.0)
[2019-06-01 18:20] LABS: ALBUMIN 4.5 g/dL (3.5-5.0); ALKALINE PHOSPHATASE 84 U/L (38-126); ANION GAP 10 (5-19); ASPARTATE AMINO TRANSFERASE 37 U/L (17-59); BILIRUBIN,DIRECT 0.4 mg/dL (0.0-0.4); BILIRUBIN,TOTAL 0.4 mg/dL (0.2-1.3); BLOOD UREA NITROGEN 40 mg/dL (7-20); CALCIUM 9.7 mg/dL (8.4-10.2); CARBON DIOXIDE 25 mmol/L (22-30); CHLORIDE 105 mmol/L (98-107); GLUCOSE 76 mg/dL (75-110); POTASSIUM 4.8 mmol/L (3.6-5.0); TOTAL PROTEIN 7.8 g/dL (6.3-8.2)
[2019-06-01] MEDS ORDERED: NORMAL SALINE 1000 ML 1,000 ML IV ONE (18:39)
--- NOTE | 2019-06-01 18:43 | RADIOLOGY REPORT (SQ) ---
EXAM DESCRIPTION: CT ABD/PELVIS NO ORAL OR IV COMPLETED DATE/TIME: 06/01/2019 6:23 pm REASON FOR STUDY: Left flank pain COMPARISON: 04/07/2018 TECHNIQUE: CT scan of the abdomen and pelvis performed without intravenous or oral contrast. Images reviewed with lung, soft tissue, and bone windows. Reconstructed coronal and sagittal MPR images revi ewed. All images stored on PACS. All CT scanners at this facility use dose modulation, iterative reconstruction, and/or weight based d osing when appropriate to reduce radiation dose to as low as reasonably achievable (ALARA). [facility]: Dose Right [facility]: CareDose [facility]: Dose Right [facility]: Teradose 4D [facility]: Smart YouHelp RADIATION DOSE: CT Rad equipment meets quality standard of care and radiation dose reduction techniq ues were employed. CTDIvol: 18.3 mGy. DLP: 1042 mGy-cm.mGy. LIMITATIONS: None. FINDINGS: LOWER CHEST: No significant findings. No nodules or infiltrates. NON-CONTRASTED LIVER, SPLEEN, ADRENALS: Evaluation limited by lack of IV contrast. No identified sign ificant masses. PANCREAS: No masses. No peripancreatic inflammatory changes. GALLBLADDER: No calcified stones. No inflammatory changes to suggest cholecystitis. RIGHT KIDNEY AND URETER: No cysts identified. No solid masses. Multiple small parenchymal calcified stones. No hydronephrosis or hydroureter. LEFT KIDNEY AND URETER: No cysts identified. No solid masses. Multiple small parenchymal calcified s tones. No hydronephrosis or hydroureter. AORTA AND RETROPERITONEUM: No aneurysm. Similar small retroperitoneal nodes. . BOWEL AND PERITONEAL CAVITY: No obvious masses or inflammatory changes. No free fluid. APPENDIX: Normal. PELVIS, BLADDER, AND ABDOMINAL WALL:No abnormal masses. No free fluid. Unremarkable bladder. BONES: No acute findings. OTHER: No other significant finding. IMPRESSION: NO ACUTE FINDINGS. TECHNICAL DOCUMENTATION: JOB ID: [id number] Quality ID # [id number]: Final reports with documentation of one or more dose reduction techniques (e.g., Au tomated exposure control, adjustment of the mA and/or kV according to patient size, use of iterative reconstruction technique) 2010 [employer]- All Rights Reserved Reading location - IP/workstation name: [email or web address]
[2019-06-01] MEDS ORDERED: MORPHINE SULFATE 10 MG/ML INJ IV ONE (19:21)
[2019-06-01 20:57] VITALS: BP 162/97
== END 2019-06-01 21:42 | disposition home or self-care (01) ==
LOC: ER 16:45
DX: R10.9 Unspecified abdominal pain (principal); I12.9 Hypertensive chronic kidney disease with stage 1 through stage 4 chronic kidney disease, or unspecified chronic kidney disease; E11.22 Type 2 diabetes mellitus with diabetic chronic kidney disease; N18.9 Chronic kidney disease, unspecified; R10.32 Left lower quadrant pain
CPT/HCPCS: 99284; 96361; 96374; 96375; 36415; 83690; 85025; 80053; 81001; 74176; J2270; J2405; J7030

== ENCOUNTER 2019-08-04 13:25 | Emergency (ER) | payer OTHER ==
--- NOTE | 2019-08-04 13:34 | ER Document Report ---
ED Medical Screen (RME) - General Chief Complaint: Pain All Over Stated Complaint: BODYACHES Time Seen by Provider: 08/04/19 13:32 Primary Care Provider: ABRAM SMITH [Primary Care Provider] - Follow up as needed Mode of Arrival: Ambulatory Information source: Patient Notes: 44-year-old male presents to ED for complaint of body aches, bilateral flank pain, diarrhea, nausea, and vomiting. He states he has stage III kidney disease and both kidneys are very painful. He states he just does not feel good at all all over. He is alert oriented respirations regular nonlabored speaking in full sentences. He states he does not smoke drink or use any drugs. I have greeted and performed a rapid initial assessment of this patient. A comprehensive ED assessment and evaluation of the patient, analysis of test results and completion of medical decision making process will be conducted by an additional ED providers. TRAVEL OUTSIDE OF THE [place] IN LAST 30 DAYS: No - Related Data Allergies/Adverse Reactions: Penicillins Allergy (Verified 06/01/19 16:46) Past Medical History - Past Medical History Cardiac Medical History: Reports: Hx Hypercholesterolemia, Hx Hypertension Endocrine Medical History: Reports: Hx Diabetes Mellitus Type 1, Hx Diabetes Mellitus Type 2 Renal/ Medical History: Reports: Hx End Stage Renal Disease, Hx Kidney Stones. Denies: Hx Peritoneal Dialysis Psychiatric Medical History: Denies: Hx Depression Past Surgical History: Reports: Hx Abdominal Surgery - hernia as a child, Hx Cardiac Surgery - as an infant for "3 holes in heart", Hx Herniorrhaphy, Hx Inguinal Hernia - Immunizations Hx Diphtheria, Pertussis, Tetanus Vaccination: No Doctor's Discharge - Discharge Referrals: ABRAM SMITH [Primary Care Provider] - Follow up as needed
[2019-08-04] MEDS ORDERED: RINGERS SOLUTION,LACTATED 1,000 ML IV ONE (14:04)
[2019-08-04 14:12] LABS: APPEARANCE,URINE SLIGHTLY-CLOUDY; BILIRUBIN,URINE NEGATIVE (NEGATIVE); COLOR,URINE YELLOW; GLUCOSE, URINE >=500 mg/dL (NEGATIVE); KETONES,URINE NEGATIVE (NEGATIVE); PROTEIN,URINE >=500 mg/dL (NEGATIVE); URINE SPECIFIC GRAVITY 1.015; UROBILINOGEN,URINE NEGATIVE mg/dL (<2.0)
[2019-08-04 14:29] LABS: ABSOLUTE EOSINOPHILS # (AUTO) 0.4 10^3/uL (0.0-0.6); ABSOLUTE LYMPHOCYTES (AUTO) 2.3 10^3/uL (0.5-4.7); ABSOLUTE MONOCYTES (AUTO) 0.8 10^3/uL (0.1-1.4); ABSOLUTE NEUT (AUTO) 6.5 10^3/uL (1.7-8.2); BASOPHILS % (AUTO) 0.5 % (0-2); EOSINOPHILS % (AUTO) 4.3 % (0-6); HEMATOCRIT 37.1 % (37.9-51.0); HEMOGLOBIN 12.9 g/dL (13.5-17.0); LYMPHOCYTES % (AUTO) 23.2 % (13-45); MEAN CORPUSCULAR HEMOGLOBIN 29.1 pg (27.0-33.4); MEAN CORPUSCULAR HGB CONC 34.8 g/dL (32.0-36.0); MEAN CORPUSCULAR VOLUME 84 fl (80-97); MONOCYTES % (AUTO) 7.7 % (3-13); PLATELET COUNT 229 10^3/uL (150-450); RED BLOOD COUNT 4.44 10^6/uL (4.35-5.55); RED CELL DISTRIBUTION WIDTH 14.2 % (11.5-14.0); SEGMENTED NEUTROPHILS % (AUTO) 64.3 % (42-78); TOTAL CELLS COUNTED % (AUTO) 100 %; WHITE BLOOD COUNT 10.1 10^3/uL (4.0-10.5)
--- NOTE | 2019-08-04 14:44 | ER Document Report ---
ED General - General Chief Complaint: Pain All Over Stated Complaint: BODYACHES Time Seen by Provider: 08/04/19 13:32 Primary Care Provider: BUSTER ARIAS MD [ACTIVE STAFF] - Follow up in 1 week [facility] [[facility]] - Follow up in 1 week Mode of Arrival: Ambulatory Notes: Patient is a 44-year-old male who presents emerged department with a chief complaint of bilateral flank pain, vomiting, and diarrhea. His symptoms started a few days ago. He started with diarrhea. Yesterday he vomited and he felt nauseous today, but has not vomited today. Patient states that he has bilateral flank pain but primarily on the right side. He states that every time he coughs it hurts. The cough started yesterday. Patient has a history of kidney stones. Past medical history includes hypertension, diabetes, hyperlipidemia. TRAVEL OUTSIDE OF THE [place] IN LAST 30 DAYS: No - Related Data Allergies/Adverse Reactions: Penicillins Allergy (Verified 06/01/19 16:46) Home Medications: Glipiside. Losartan. Lisinopril Past Medical History - General Information source: Patient - Social History Smoking Status: Never Smoker Frequency of alcohol use: None Drug Abuse: None Family History: Reviewed & Not Pertinent, Arthritis, CVA, DM, Hypertension, Malignancy Patient has suicidal ideation: No Patient has homicidal ideation: No - Past Medical History Cardiac Medical History: Reports: Hx Hypercholesterolemia, Hx Hypertension Endocrine Medical History: Reports: Hx Diabetes Mellitus Type 1, Hx Diabetes Mellitus Type 2 Renal/ Medical History: Reports: Hx End Stage Renal Disease, Hx Kidney Stones. Denies: Hx Peritoneal Dialysis Psychiatric Medical History: Denies: Hx Depression Past Surgical History: Reports: Hx Abdominal Surgery - hernia as a child, Hx Cardiac Surgery - as an infant for "3 holes in heart", Hx Herniorrhaphy, Hx Inguinal Hernia - Immunizations Hx Diphtheria, Pertussis, Tetanus Vaccination: No Review of Systems - Review of Systems Notes: REVIEW OF SYSTEMS: CONSTITUTIONAL : Denies recent illness. Denies recent unintentional weight loss. Denies fever, chills, or sweats. EENT: Denies eye, ear, throat, or mouth pain, discharge, or symptoms. Denies nasal or sinus congestion. CARDIOVASCULAR: Denies chest pain. RESPIRATORY: Denies shortness of breath, cough, congestion, difficulty breathing, or wheezing. GASTROINTESTINAL: See HPI. GENITOURINARY: Denies difficulty urinating, burning, blood in urine, urgency or frequency. MUSCULOSKELETAL: See HPI. Denies joint pain or swelling. SKIN: Denies rash, itchiness, or lesions HEMATOLOGIC : Denies easy bruising or bleeding. LYMPHATIC: Denies swollen, painful, enlarged glands. NEUROLOGICAL: Denies no numbness or tingling denies weakness. Denies headache. Denies altered mental status. Denies alteration in speech. PSYCHIATRIC: Denies stress, anxiety, alteration in sleep patterns, or depression. All other systems reviewed and negative. Physical Exam - Vital signs Vitals: Temp Pulse Resp BP Pulse Ox 98.2 F 101 H 18 190/115 H 100 08/04/19 13:32 08/04/19 13:32 08/04/19 13:32 08/04/19 13:32 08/04/19 13:32 - Notes Notes: PHYSICAL EXAMINATION: GENERAL: Appears well, obese, no acute distress. HEAD: Normocephalic, atraumatic. EYES: PERRL, conjunctiva normal, all extraocular movements intact, sclera nonicteric ENT: Dry mucous membranes. NECK: Supple, no noticeable swelling, redness, rash. Normal range of motion. LUNGS: Equal breath sounds bilaterally and clear to auscultation. No wheezes rales or rhonchi. CARDIOVASCULAR: S1-S2, regular rate, regular rhythm. Radial pulses 2+, normal. ABDOMEN: Normoactive bowel sounds. Soft, mildly tender, no rebound tenderness, and no masses palpated. EXTREMITIES: Normal strength and range of motion, no pitting or edema. No cyanosis. NEUROLOGICAL: Moves all extremities upon command. Strength 5/5 in all ext remities. PSYCH: Normal mood, normal affect. SKIN: Warm, dry. No rash, lesions, ulcerations noted. Normal skin turgor. BACK: CVA tenderness bilaterally. Course - Re-evaluation Re-evalutation: 08/04/19 Hematology is unremarkable. Chemistries show a creatinine of 4.28, but in the patient's last visit his creatinine was just slightly lower. He has not been followed by a disc ruler operator due to him not having insurance. I will give him a referral to Dr. Arias. His BNP is 750, but no shortness of breath or difficulty breathing. His chest x-ray is normal. Lactic acid ordered in triage was normal. CK was 317. He received a liter of fluids. Patient only had a small amount of blood and trace leukocytes in his urine. I have a very low suspicion for an infected kidney stone. The stone that was found on his CT scan was little. Patient had expressed to me that he works at [employer] and he has been lifting and bending. I suspect his bilateral back pain is actually musculoskeletal in nature. I reassessed his back and his back is tender to palpation also. This is more indicative of musculoskeletal pain. I gave the patient strict follow-up precautions. He I also sent him home with pain medication and nausea medication. He also states that he still feels a little dizzy. He will receive meclizine. Patient also states that he did not take his blood pressure medication today. He will receive his normal medication here in the emergency department before he leaves. Patient states that he is not out of his medication. I have advised [facility]. He is in agreement with this plan. Follow-up precautions were given. Verbal discharge instructions were given to the patient. They verbalized understanding. They are stable for discharge. - Vital Signs Vital signs: Temp Pulse Resp BP Pulse Ox 97.7 F 98 18 187/116 H 97 08/04/19 17:49 08/04/19 17:49 08/04/19 17:49 08/04/19 17:49 08/04/19 17:49 - Laboratory Result Diagrams: 08/04/19 14:09 08/04/19 14:09 Laboratory results interpreted by me: 08/04/19 08/04/19 08/04/19 13:38 14:09 14:09 Hgb 12.9 L Hct 37.1 L RDW 14.2 H Chloride 108 H Carbon Dioxide 21 L BUN 49 H Creatinine 4.28 H Est GFR ( Amer) 18 L Est GFR (MDRD) Non-Af 15 L Glucose 201 H Creatine Kinase 317 H NT-Pro-B Natriuret Pep Urine Protein >=500 H Urine Glucose (UA) >=500 H Urine Blood SMALL H Leukocyte Esterase Rfl TRACE H 08/04/19 14:09 Hgb Hct RDW Chloride Carbon Dioxide BUN Creatinine Est GFR ( Amer) Est GFR (MDRD) Non-Af Glucose Creatine Kinase NT-Pro-B Natriuret Pep 750 H Urine Protein Urine Glucose (UA) Urine Blood Leukocyte Esterase Rfl Discharge - Discharge Clinical Impression: Nephrolithiasis Back pain Qualifiers: Back pain location: low back pain Chronicity: acute Back pain laterality: bilateral Sciatica presence: without sciatica Qualified Code(s): M54.5 - Low back pain Condition: Stable Disposition: HOME, SELF-CARE Additional Instructions: You were seen today in the emergency department for low back pain. Most likely cause of your low back pain is muscle pain due to you lifting at work. Please take time to rest. You are being sent home with pain medication to help with your pain. Please make sure you do some back which is to help stretch the muscles in your back. You can also buy Aspercreme with lidocaine [id number] ter and apply it to your back to help with your pain. You are also being sent home with meclizine, medication for her dizziness. Please follow-up with [facility] and nephrology in regards to this visit. Prescriptions: Meclizine HCl [Antivert 25 mg Tablet] 25 mg PO DAILYP PRN #14 tablet PRN Reason: Hydrocodone/Acetaminophen [[place] 5-325 mg Tablet] 1 tab PO ASDIR PRN #10 tablet PRN Reason: Ondansetron [Zofran Odt 4 mg Tablet] 1 - 2 tab PO Q4H PRN #20 tab.rapdis PRN Reason: For Nausea/Vomiting Forms: Return to Work Referrals: [facility] [Primary Care Provider] - Follow up in 1 week BUSTER ARIAS MD [ACTIVE STAFF] - Follow up in 1 week
[2019-08-04 14:51] LABS: ALBUMIN 4.2 g/dL (3.5-5.0); ALKALINE PHOSPHATASE 104 U/L (38-126); ANION GAP 11 (5-19); ASPARTATE AMINO TRANSFERASE 22 U/L (17-59); BILIRUBIN,DIRECT 0.2 mg/dL (0.0-0.4); BILIRUBIN,TOTAL 0.2 mg/dL (0.2-1.3); BLOOD UREA NITROGEN 49 mg/dL (7-20); CALCIUM 9.3 mg/dL (8.4-10.2); CARBON DIOXIDE 21 mmol/L (22-30); CHLORIDE 108 mmol/L (98-107); CREATINE KINASE 317 U/L (55-170); GLUCOSE 201 mg/dL (75-110); POTASSIUM 4.4 mmol/L (3.6-5.0); TOTAL PROTEIN 7.3 g/dL (6.3-8.2)
--- NOTE | 2019-08-04 15:16 | RADIOLOGY REPORT (SQ) ---
EXAM DESCRIPTION: CHEST 2 VIEWS COMPLETED DATE/TIME: 08/04/2019 3:03 pm REASON FOR STUDY: body ache all over COMPARISON: 10/09/2018 TECHNIQUE: Frontal and lateral radiographic views of the chest acquired. NUMBER OF VIEWS: Two view. LIMITATIONS: None. FINDINGS: LUNGS AND PLEURA: No opacities, masses or pneumothorax. No pleural effusion. MEDIASTINUM AND HILAR STRUCTURES: No masses or contour abnormalities. HEART AND VASCULAR STRUCTURES: Heart normal size. No evidence for failure. BONES: No acute findings. HARDWARE: None in the chest. OTHER: No other significant finding. IMPRESSION: NO SIGNIFICANT RADIOGRAPHIC FINDING IN THE CHEST. TECHNICAL DOCUMENTATION: JOB ID: [id number] [employer]- All Rights Reserved Reading location - IP/workstation name: [email or web address]
[2019-08-04] MEDS ORDERED: MORPHINE SULFATE 10 MG/ML INJ IV ONE (15:32)
--- NOTE | 2019-08-04 16:15 | RADIOLOGY REPORT (SQ) ---
EXAM DESCRIPTION: CT ABD/PELVIS NO ORAL OR IV COMPLETED DATE/TIME: 08/04/2019 2:58 pm REASON FOR STUDY: bilateral flank pain COMPARISON: 06/01/2019 TECHNIQUE: CT scan of the abdomen and pelvis performed without intravenous or oral contrast. Images reviewed with lung, soft tissue, and bone windows. Reconstructed coronal and sagittal MPR images revi ewed. All images stored on PACS. All CT scanners at this facility use dose modulation, iterative reconstruction, and/or weight based d osing when appropriate to reduce radiation dose to as low as reasonably achievable (ALARA). [facility]: Dose Right [facility]: CareDose [facility]: Dose Right [facility]: Teradose 4D [facility]: Smart [employer]soft RADIATION DOSE: CT Rad equipment meets quality standard of care and radiation dose reduction techniq ues were employed. CTDIvol: 19.6 mGy. DLP: 1169 mGy-cm.mGy. LIMITATIONS: None. FINDINGS: LOWER CHEST: No significant findings. No nodules or infiltrates. NON-CONTRASTED LIVER, SPLEEN, ADRENALS: Evaluation limited by lack of IV contrast. No identified sign ificant masses. PANCREAS: No masses. No peripancreatic inflammatory changes. GALLBLADDER: No identified stones by CT criteria. No inflammatory changes to suggest cholecystitis. RIGHT KIDNEY AND URETER: Multiple tiny nonobstructing punctate calcifications. No ureteral calculi LEFT KIDNEY AND URETER: Multiple tiny nonobstructing punctate calcifications. No ureteral calculi. AORTA AND RETROPERITONEUM: No aneurysm. No retroperitoneal masses or adenopathy. BOWEL AND PERITONEAL CAVITY: No obvious masses or inflammatory changes. No free fluid. APPENDIX: Normal. PELVIS, BLADDER, AND ABDOMINAL WALL:No pelvic pathology. Minimal fat containing umbilical hernia. BONES: No significant findings. OTHER: No other significant finding. IMPRESSION: 1. No acute or suspicious abnormality. 2. Tiny nonobstructing bilateral renal calculi. TECHNICAL DOCUMENTATION: JOB ID: [id number] Quality ID # [id number]: Final reports with documentation of one or more dose reduction techniques (e.g., Au tomated exposure control, adjustment of the mA and/or kV according to patient size, use of iterative reconstruction technique) 2010 [employer]- All Rights Reserved Reading location - IP/workstation name: [email or web address]
[2019-08-04] MEDS ORDERED: ONDANSETRON HCL INJ/PF 4 MG/2 ML SDV IV ONE (17:13)
[2019-08-04] MEDS ORDERED: AMLODIPINE BESYLATE 10 MG TABLET PO ONE (17:38)
[2019-08-04] MEDS ORDERED: LOSARTAN POTASSIUM 50 MG TABLET PO ONE (17:38)
[2019-08-04 18:01] VITALS: BP 187/116
== END 2019-08-04 18:01 | disposition home or self-care (01) ==
LOC: ER 13:25
DX: N20.0 Calculus of kidney (principal); M54.5 Low back pain; M79.10 Myalgia, unspecified site; R19.7 Diarrhea, unspecified; R11.2 Nausea with vomiting, unspecified; R05 Cough; E11.22 Type 2 diabetes mellitus with diabetic chronic kidney disease; I12.0 Hypertensive chronic kidney disease with stage 5 chronic kidney disease or end stage renal disease; N18.6 End stage renal disease; E78.00 Pure hypercholesterolemia, unspecified; Z87.442 Personal history of urinary calculi; Z88.0 Allergy status to penicillin
CPT/HCPCS: 99283; 96361; 96374; 96375; 36415; 87086; 82550; 85025; 80053; 81001; 83605; 83880; 71046; 74176; J2270; J2405; J7120

== ENCOUNTER → 2019-08-26 | Outpatient (CLI) | payer OTHER ==
[2019-08-26 12:43] LABS: ABSOLUTE BASOPHILS # (AUTO) 0.1 10^3/uL (0.0-0.2); ABSOLUTE EOSINOPHILS # (AUTO) 1.3 10^3/uL (0.0-0.6); ABSOLUTE LYMPHOCYTES (AUTO) 2.2 10^3/uL (0.5-4.7); ABSOLUTE MONOCYTES (AUTO) 0.8 10^3/uL (0.1-1.4); ABSOLUTE NEUT (AUTO) 8.2 10^3/uL (1.7-8.2); BASOPHILS % (AUTO) 0.6 % (0-2); HEMOGLOBIN 12.9 g/dL (13.5-17.0); LYMPHOCYTES % (AUTO) 17.5 % (13-45); MEAN CORPUSCULAR HEMOGLOBIN 28.3 pg (27.0-33.4); MEAN CORPUSCULAR HGB CONC 33.2 g/dL (32.0-36.0); MEAN CORPUSCULAR VOLUME 85 fl (80-97); MONOCYTES % (AUTO) 6.5 % (3-13); PLATELET COUNT 294 10^3/uL (150-450); RED BLOOD COUNT 4.58 10^6/uL (4.35-5.55); SEGMENTED NEUTROPHILS % (AUTO) 65.4 % (42-78); TOTAL CELLS COUNTED % (AUTO) 100 %; WHITE BLOOD COUNT 12.6 10^3/uL (4.0-10.5)
[2019-08-26 12:44] LABS: APPEARANCE,URINE CLEAR; BILIRUBIN,URINE NEGATIVE (NEGATIVE); COLOR,URINE YELLOW; GLUCOSE, URINE >=500 mg/dL (NEGATIVE); KETONES,URINE NEGATIVE (NEGATIVE); LEUKOCYTE ESTERASE,URINE SMALL (NEGATIVE); NITRITE,URINE NEGATIVE (NEGATIVE); PROTEIN,URINE >=500 mg/dL (NEGATIVE); URINE SPECIFIC GRAVITY 1.013; UROBILINOGEN,URINE NEGATIVE mg/dL (<2.0)
[2019-08-26 13:17] LABS: ALBUMIN 4.3 g/dL (3.5-5.0); ALKALINE PHOSPHATASE 113 U/L (38-126); AMYLASE 104 U/L (30-110); ANION GAP 16 (5-19); ASPARTATE AMINO TRANSFERASE 27 U/L (17-59); BILIRUBIN,DIRECT 0.2 mg/dL (0.0-0.4); BILIRUBIN,TOTAL 0.4 mg/dL (0.2-1.3); BLOOD UREA NITROGEN 46 mg/dL (7-20); CALCIUM 9.7 mg/dL (8.4-10.2); CARBON DIOXIDE 20 mmol/L (22-30); CHLORIDE 102 mmol/L (98-107); CHOLESTEROL 195.51 mg/dL (0-200); GLUCOSE 173 mg/dL (75-110); POTASSIUM 4.6 mmol/L (3.6-5.0); TOTAL PROTEIN 7.7 g/dL (6.3-8.2); TRIGLYCERIDES 314 mg/dL (<150); URIC ACID 6.7 mg/dL (3.5-8.5)
[2019-08-26 13:26] LABS: DIRECT LDL 93 mg/dL (<100); ERYTHROCYTE SEDIMENTATION RATE 60 mm/hr (0-15)
[2019-08-26 13:30] LABS: C-REACTIVE PROTEIN < 5.0 mg/L (<10.0); VLDL CHOLESTEROL 62.8 mg/dL (10-31)
== END ==
LOC: CCC 11:47
DX: N19 Unspecified kidney failure (principal)
CPT/HCPCS: 36415; 80053; 80061; 81001; 82150; 82550; 83036; 83735; 84443; 84550; 85025; 85652; 86038; 86140

== ENCOUNTER → 2019-09-05 | Outpatient (CLI) | payer OTHER ==
--- NOTE | 2019-09-05 17:05 | RADIOLOGY REPORT (SQ) ---
EXAM DESCRIPTION: U/S RETROPERITON (RENAL/AORTA) COMPLETED DATE/TIME: 09/05/2019 1:56 pm REASON FOR STUDY: UNSPEC KIDNEY FAILURE (N19) N19 UNSPECIFIED KIDNEY FAILURE COMPARISON: None. TECHNIQUE: Dynamic and static grayscale images acquired of the kidneys and bladder and recorded on P ACS. Additional selected color Doppler and spectral images recorded. LIMITATIONS: None. FINDINGS: RIGHT KIDNEY: Normal size, 9.6 cm. Increased echogenicity. No solid or suspicious masses. No hydronephrosis. No calcifications. LEFT KIDNEY: Normal size, 9.2 cm. Increased echogenicity. No solid or suspicious masses. No hydrone phrosis. No calcifications. BLADDER: Urinary bladder is empty and not evaluated. OTHER FINDINGS: No other significant finding. IMPRESSION: There is increased echogenicity in the kidneys may suggest medical renal disease. Urina ry bladder could not be evaluated. TECHNICAL DOCUMENTATION: JOB ID: [id number] 1100 [employer]- All Rights Reserved Reading location - IP/workstation name: [email or web address]
== END ==
LOC: RAD 12:10
PROVIDERS: ATTEND Family Medicine
DX: N19 Unspecified kidney failure (principal)
CPT/HCPCS: 76770

== ENCOUNTER → 2019-09-12 | Outpatient (CLI) | payer OTHER ==
[2019-09-12 13:25] LABS: APPEARANCE,URINE CLEAR; BILIRUBIN,URINE NEGATIVE (NEGATIVE); COLOR,URINE STRAW; GLUCOSE, URINE >=500 mg/dL (NEGATIVE); KETONES,URINE NEGATIVE (NEGATIVE); LEUKOCYTE ESTERASE,URINE SMALL (NEGATIVE); NITRITE,URINE NEGATIVE (NEGATIVE); PROTEIN,URINE >=500 mg/dL (NEGATIVE); UROBILINOGEN,URINE NEGATIVE mg/dL (<2.0)
[2019-09-12 13:47] LABS: ANION GAP 16 (5-19); BLOOD UREA NITROGEN 55 mg/dL (7-20); CALCIUM 9.5 mg/dL (8.4-10.2); CARBON DIOXIDE 20 mmol/L (22-30); CHLORIDE 103 mmol/L (98-107); GLUCOSE 174 mg/dL (75-110); POTASSIUM 4.4 mmol/L (3.6-5.0); URIC ACID 6.9 mg/dL (3.5-8.5)
[2019-09-13 12:36] LABS: CREATININE URINE 60.2 mg/dL (Not Estab.)
[2019-09-13 12:59] LABS: MICROALBUMIN URINE 1798.7 ug/mL (Not Estab.)
== END ==
LOC: OD 12:18
DX: N18.9 Chronic kidney disease, unspecified (principal)
CPT/HCPCS: 36415; 80048; 81001; 82043; 82570; 83735; 84550

== ENCOUNTER → 2019-10-25 | Outpatient (CLI) | payer OTHER ==
[2019-10-25 11:02] LABS: ABSOLUTE BASOPHILS # (AUTO) 0.1 10^3/uL (0.0-0.2); ABSOLUTE EOSINOPHILS # (AUTO) 0.6 10^3/uL (0.0-0.6); ABSOLUTE LYMPHOCYTES (AUTO) 2.2 10^3/uL (0.5-4.7); ABSOLUTE MONOCYTES (AUTO) 0.7 10^3/uL (0.1-1.4); ABSOLUTE NEUT (AUTO) 6.9 10^3/uL (1.7-8.2); EOSINOPHILS % (AUTO) 5.8 % (0-6); HEMATOCRIT 34.1 % (37.9-51.0); LYMPHOCYTES % (AUTO) 20.7 % (13-45); MEAN CORPUSCULAR HEMOGLOBIN 29.6 pg (27.0-33.4); MEAN CORPUSCULAR HGB CONC 35.3 g/dL (32.0-36.0); MEAN CORPUSCULAR VOLUME 84 fl (80-97); MONOCYTES % (AUTO) 6.7 % (3-13); PLATELET COUNT 307 10^3/uL (150-450); RED BLOOD COUNT 4.06 10^6/uL (4.35-5.55); RED CELL DISTRIBUTION WIDTH 14.2 % (11.5-14.0); SEGMENTED NEUTROPHILS % (AUTO) 65.8 % (42-78); TOTAL CELLS COUNTED % (AUTO) 100 %; WHITE BLOOD COUNT 10.5 10^3/uL (4.0-10.5)
[2019-10-25 11:22] LABS: ANION GAP 15 (5-19); BLOOD UREA NITROGEN 63 mg/dL (7-20); CALCIUM 9.6 mg/dL (8.4-10.2); CARBON DIOXIDE 19 mmol/L (22-30); CHLORIDE 104 mmol/L (98-107); GLUCOSE 95 mg/dL (75-110); IRON 100.8 ug/dL (49-181); URIC ACID 7.4 mg/dL (3.5-8.5)
== END ==
LOC: CCC 10:01
DX: N18.9 Chronic kidney disease, unspecified (principal)
CPT/HCPCS: 36415; 80048; 82306; 83540; 83735; 84443; 84550; 85025

== ENCOUNTER → 2019-11-29 | Outpatient (CLI) | payer OTHER ==
[2019-11-29 11:27] LABS: ABSOLUTE BASOPHILS # (AUTO) 0.1 10^3/uL (0.0-0.2); ABSOLUTE EOSINOPHILS # (AUTO) 0.4 10^3/uL (0.0-0.6); ABSOLUTE LYMPHOCYTES (AUTO) 2.9 10^3/uL (0.5-4.7); ABSOLUTE NEUT (AUTO) 6.7 10^3/uL (1.7-8.2); BASOPHILS % (AUTO) 0.8 % (0-2); EOSINOPHILS % (AUTO) 3.2 % (0-6); HEMATOCRIT 33.6 % (37.9-51.0); HEMOGLOBIN 11.4 g/dL (13.5-17.0); LYMPHOCYTES % (AUTO) 26.5 % (13-45); MEAN CORPUSCULAR HEMOGLOBIN 28.8 pg (27.0-33.4); MEAN CORPUSCULAR HGB CONC 33.8 g/dL (32.0-36.0); MEAN CORPUSCULAR VOLUME 85 fl (80-97); MONOCYTES % (AUTO) 9.1 % (3-13); PLATELET COUNT 244 10^3/uL (150-450); RED BLOOD COUNT 3.95 10^6/uL (4.35-5.55); SEGMENTED NEUTROPHILS % (AUTO) 60.4 % (42-78); TOTAL CELLS COUNTED % (AUTO) 100 %
[2019-11-29 11:37] LABS: AMORPHOUS SEDIMENT,URINE TRACE /HPF; APPEARANCE,URINE SLIGHTLY-CLOUDY; BILIRUBIN,URINE NEGATIVE (NEGATIVE); COLOR,URINE YELLOW; GLUCOSE, URINE 150 mg/dL (NEGATIVE); KETONES,URINE NEGATIVE (NEGATIVE); LEUKOCYTE ESTERASE,URINE TRACE (NEGATIVE); NITRITE,URINE NEGATIVE (NEGATIVE); PROTEIN,URINE >=500 mg/dL (NEGATIVE); URINE SPECIFIC GRAVITY 1.011; UROBILINOGEN,URINE NEGATIVE mg/dL (<2.0)
[2019-11-29 11:47] LABS: ALBUMIN 4.5 g/dL (3.5-5.0); ALKALINE PHOSPHATASE 90 U/L (38-126); ANION GAP 17 (5-19); ASPARTATE AMINO TRANSFERASE 27 U/L (17-59); BILIRUBIN,DIRECT 0.3 mg/dL (0.0-0.4); BILIRUBIN,TOTAL 0.3 mg/dL (0.2-1.3); BLOOD UREA NITROGEN 71 mg/dL (7-20); CARBON DIOXIDE 17 mmol/L (22-30); CHLORIDE 107 mmol/L (98-107); GLUCOSE 89 mg/dL (75-110); POTASSIUM 4.1 mmol/L (3.6-5.0)
[2019-11-29 12:05] LABS: URINE CREATININE 94.2 mg/dL (22-328)
[2019-11-29 12:19] LABS: UR PRO/CREAT RATIO RESULT 4.4 mg/mg (0.0-0.2); URINE PROTEIN 413.2 mg/dL (<12)
== END ==
LOC: OD 10:54
PROVIDERS: ATTEND Internal Medicine Nephrology
DX: I12.9 Hypertensive chronic kidney disease with stage 1 through stage 4 chronic kidney disease, or unspecified chronic kidney disease (principal); N18.4 Chronic kidney disease, stage 4 (severe); E11.22 Type 2 diabetes mellitus with diabetic chronic kidney disease; R80.9 Proteinuria, unspecified
CPT/HCPCS: 36415; 80053; 81001; 82306; 82533; 82550; 82570; 83615; 83735; 83970; 84100; 84156; 85025

== ENCOUNTER 2019-12-15 10:43 | Emergency (ER) | payer OTHER ==
--- NOTE | 2019-12-15 10:55 | ER Document Report ---
ED Medical Screen (RME) - General Chief Complaint: Pain All Over Stated Complaint: BODY PAIN/ITCHING Time Seen by Provider: 12/15/19 10:48 Primary Care Provider: Suzy ROBERSON MD [Primary Care Provider] - Follow up as needed Mode of Arrival: Ambulatory Information source: Patient Notes: 44-year-old male with history of diabetes chronic kidney disease high blood pressure CHF presents with complaints of increased swelling, painful body and generalized itching. He reports the [facility] did prescribe him something for the itching but he lost his prescription. He reports he is increased his Lasix. Denies fever vomiting but reports he has had 4 episodes of diarrhea this morning. Patient reports that his web page developer told him that he will be needing to get on dialysis soon. Patient also complains of right-sided flank pain. I have greeted and performed a rapid initial assessment of this patient. A comprehensive ED assessment and evaluation of the patient, analysis of test results and completion of the medical decision making process will be conducted by additional ED providers. TRAVEL OUTSIDE OF THE [place] IN LAST 30 DAYS: No - Related Data Allergies/Adverse Reactions: Penicillins Allergy (Verified 12/15/19 10:48) Past Medical History - Past Medical History Cardiac Medical History: Reports: Hx Hypercholesterolemia, Hx Hypertension Endocrine Medical History: Reports: Hx Diabetes Mellitus Type 1, Hx Diabetes Mellitus Type 2 Renal/ Medical History: Reports: Hx End Stage Renal Disease, Hx Kidney Stones. Denies: Hx Peritoneal Dialysis Psychiatric Medical History: Denies: Hx Depression Past Surgical History: Reports: Hx Abdominal Surgery - hernia as a child, Hx Cardiac Surgery - as an for "3 holes in heart", Hx Herniorrhaphy, Hx Inguinal Hernia - Immunizations Hx Diphtheria, Pertussis, Tetanus Vaccination: No Physical Exam - Vital signs Vitals: Temp Pulse Resp BP Pulse Ox 97.7 F 100 16 201/106 H 100 12/15/19 10:55 12/15/19 10:55 12/15/19 10:55 12/15/19 10:55 12/15/19 10:55 Course - Vital Signs Vital signs: Temp Pulse Resp BP Pulse Ox 97.7 F 100 16 201/106 H 100 12/15/19 10:55 12/15/19 10:55 12/15/19 10:55 12/15/19 10:55 12/15/19 10:55 Doctor's Discharge - Discharge Referrals: Suzy ROBERSON MD [Primary Care Provider] - Follow up as needed
[2019-12-15 11:27] LABS: ABSOLUTE BASOPHILS # (AUTO) 0.1 10^3/uL (0.0-0.2); ABSOLUTE EOSINOPHILS # (AUTO) 0.5 10^3/uL (0.0-0.6); ABSOLUTE LYMPHOCYTES (AUTO) 2.1 10^3/uL (0.5-4.7); ABSOLUTE MONOCYTES (AUTO) 0.7 10^3/uL (0.1-1.4); ABSOLUTE NEUT (AUTO) 8.4 10^3/uL (1.7-8.2); BASOPHILS % (AUTO) 0.7 % (0-2); EOSINOPHILS % (AUTO) 3.9 % (0-6); HEMATOCRIT 36.6 % (37.9-51.0); HEMOGLOBIN 12.6 g/dL (13.5-17.0); LYMPHOCYTES % (AUTO) 17.6 % (13-45); MEAN CORPUSCULAR HEMOGLOBIN 29.3 pg (27.0-33.4); MEAN CORPUSCULAR HGB CONC 34.3 g/dL (32.0-36.0); MEAN CORPUSCULAR VOLUME 85 fl (80-97); MONOCYTES % (AUTO) 6.2 % (3-13); PLATELET COUNT 315 10^3/uL (150-450); RED BLOOD COUNT 4.29 10^6/uL (4.35-5.55); RED CELL DISTRIBUTION WIDTH 14.1 % (11.5-14.0); SEGMENTED NEUTROPHILS % (AUTO) 71.6 % (42-78); TOTAL CELLS COUNTED % (AUTO) 100 %; WHITE BLOOD COUNT 11.7 10^3/uL (4.0-10.5)
[2019-12-15 11:30] LABS: APPEARANCE,URINE SLIGHTLY-CLOUDY; BILIRUBIN,URINE NEGATIVE (NEGATIVE); COLOR,URINE YELLOW; GLUCOSE, URINE 150 mg/dL (NEGATIVE); KETONES,URINE NEGATIVE (NEGATIVE); LEUKOCYTE ESTERASE,URINE TRACE (NEGATIVE); NITRITE,URINE NEGATIVE (NEGATIVE); PROTEIN,URINE 100 mg/dL (NEGATIVE); URINE SPECIFIC GRAVITY 1.012; UROBILINOGEN,URINE NEGATIVE mg/dL (<2.0)
--- NOTE | 2019-12-15 11:30 | RADIOLOGY REPORT (SQ) ---
EXAM DESCRIPTION: CHEST 2 VIEWS COMPLETED DATE/TIME: 12/15/2019 11:17 am REASON FOR STUDY: CHF, increased swelling COMPARISON: 09/17/2019 EXAM PARAMETERS: NUMBER OF VIEWS: two views TECHNIQUE: Digital Frontal and Lateral radiographic views of the chest acquired. RADIATION DOSE: NA LIMITATIONS: none FINDINGS: LUNGS AND PLEURA: No opacities, masses or pneumothorax. No pleural effusion. MEDIASTINUM AND HILAR STRUCTURES: No masses or contour abnormalities. HEART AND VASCULAR STRUCTURES: Heart normal size. No evidence for failure. BONES: No acute findings. HARDWARE: None in the chest. OTHER: No other significant finding. IMPRESSION: No acute radiographic findings in the chest. No evidence of CHF exacerbation. TECHNICAL DOCUMENTATION: JOB ID: [id number] 2010 [employer]- All Rights Reserved Reading location - IP/workstation name: [email or web address]
[2019-12-15 11:42] LABS: ALKALINE PHOSPHATASE 104 U/L (38-126); ANION GAP 18 (5-19); ASPARTATE AMINO TRANSFERASE 27 U/L (17-59); BILIRUBIN,DIRECT 0.4 mg/dL (0.0-0.4); BILIRUBIN,TOTAL 0.4 mg/dL (0.2-1.3); BLOOD UREA NITROGEN 70 mg/dL (7-20); CALCIUM 9.8 mg/dL (8.4-10.2); CARBON DIOXIDE 17 mmol/L (22-30); CHLORIDE 106 mmol/L (98-107); GLUCOSE 112 mg/dL (75-110); POTASSIUM 5.1 mmol/L (3.6-5.0); TOTAL PROTEIN 8.8 g/dL (6.3-8.2)
[2019-12-15 11:54] LABS: TROPONIN I 0.012 ng/mL
[2019-12-15] MEDS ORDERED: FUROSEMIDE INJ/PF 40 MG/4 ML SDV IV ONE (11:57)
[2019-12-15] MEDS ORDERED: METOLAZONE 5 MG TABLET PO ONE (11:58)
[2019-12-15] MEDS ORDERED: CLONIDINE HCL 0.2 MG TABLET PO ONE (15:33)
[2019-12-15 15:40] VITALS: BP 155/107
--- NOTE | 2019-12-15 16:41 | ER Document Report ---
Entered by CARLOS IGLESIAS SCRIBE 12/15/19 1156 Acting as scribe for:RENEE VOGEL MD ED General - General Chief Complaint: Medical Complaint Stated Complaint: BODY PAIN/ITCHING Time Seen by Provider: 12/15/19 10:48 Primary Care Provider: Suzy ROBERSON MD [Primary Care Provider] - Follow up as needed Mode of Arrival: Ambulatory Information source: Patient Notes: This 44 year old male patient presents to the emergency department today with complaints of itching. Patient states he was having an "itch attack" and his abdomen has been swelling. Patient states he has been nauseas, had diarrhea x4 times, and trouble urinating. Patient states he has stage 5 kidney disease and is not on dialysis because of complications with insurance. Patient states he was told by his doctor to come to the emergency department if he develops sympto ms. Patient states he has chest pain, back pain, not able to sleep well, and has gained weight. Patient states he has a history of congestive heart failure. TRAVEL OUTSIDE OF THE [place] IN LAST 30 DAYS: No - Related Data Allergies/Adverse Reactions: Penicillins Allergy (Verified 12/15/19 10:48) Past Medical History - General Information source: Patient - Social History Smoking Status: Never Smoker Cigarette use (# per day): No Chew tobacco use (# tins/day): No Frequency of alcohol use: None Drug Abuse: None Family History: Reviewed & Not Pertinent, Arthritis, CVA, DM, Hypertension, Malignancy Patient has suicidal ideation: No Patient has homicidal ideation: No - Past Medical History Cardiac Medical History: Reports: Hx Congestive Heart Failure, Hx Hypercholesterolemia, Hx Hypertension Endocrine Medical History: Reports: Hx Diabetes Mellitus Type 1, Hx Diabetes Mellitus Type 2 Renal/ Medical History: Reports: Hx End Stage Renal Disease, Hx Kidney Stones Past Surgical History: Reports: Hx Abdominal Surgery - hernia as a child, Hx Cardiac Surgery - as an infant for "3 holes in heart", Hx Herniorrhaphy, Hx Inguinal Hernia - Immunizations Hx Diphtheria, Pertussis, Tetanus Vaccination: No Review of Systems - Review of Systems Constitutional: See HPI, Weight gain EENT: No symptoms reported Cardiovascular: See HPI, Chest pain Respiratory: No symptoms reported Gastrointestinal: See HPI, Abdomen distended, Diarrhea, Nausea Genitourinary: See HPI Male Genitourinary: No symptoms reported Musculoskeletal: See HPI, Back pain Skin: No symptoms reported Hematologic/Lymphatic: No symptoms reported Neurological/Psychological: See HPI -: Yes All other systems reviewed and negative Physical Exam - Vital signs Vitals: Temp Pulse Resp BP Pulse Ox 97.7 F 100 16 201/106 H 100 12/15/19 10:55 12/15/19 10:55 12/15/19 10:55 12/15/19 10:55 12/15/19 10:55 - General General appearance: Appears well, Alert In distress: Mild - HEENT Head: Normocephalic, Atraumatic Eyes: Normal Pupils: PERRL - Respiratory Respiratory status: No respiratory distress Chest status: Nontender Breath sounds: Normal - Cardiovascular Rhythm: Regular Heart sounds: Normal auscultation Murmur: No - Abdominal Distension: Distended, Fluid wave, Other - Swollen abdomen. Tenderness: Nontender - Extremities General upper extremity: Normal inspection. No: Edema Ankle: Edema - Non-pitting edema bilateraly. - Neurological Neuro grossly intact: Yes Cognition: Normal Orientation: AAOx4 - Psychological Associated symptoms: Normal affect, Normal mood - Skin Skin Temperature: Warm Skin Moisture: Dry Skin Color: Normal Course - Re-evaluation Re-evalutation: 12/15/19 15:22 Patient is resting comfortably not showing any signs of distress at this time. Patient has diuresed over 600 mL of urine. Patient's abdominal girth and abdominal ascites is less tense nontender patient's peripheral edema in lower extremities showed calf size diminished and nontender at this time. - Vital Signs Vital signs: Temp Pulse Resp BP Pulse Ox 97.5 F 89 18 155/107 H 100 12/15/19 15:44 12/15/19 11:27 12/15/19 15:35 12/15/19 15:35 12/15/19 15:35 - Laboratory Result Diagrams: 12/15/19 11:00 12/15/19 11:00 Laboratory results interpreted by me: 12/15/19 12/15/19 12/15/19 11:00 11:00 11:00 WBC 11.7 H RBC 4.29 L Hgb 12.6 L Hct 36.6 L RDW 14.1 H Absolute Neuts (auto) 8.4 H Potassium 5.1 H Carbon Dioxide 17 L BUN 70 H Creatinine 7.32 H Est GFR ( Amer) 10 L Est GFR (MDRD) Non-Af 8 L Glucose 112 H NT-Pro-B Natriuret Pep 1760 H Total Protein 8.8 H Urine Protein Urine Glucose (UA) Urine Blood Ur Leukocyte Esterase 12/15/19 11:00 WBC RBC Hgb Hct RDW Absolute Neuts (auto) Potassium Carbon Dioxide BUN Creatinine Est GFR ( Amer) Est GFR (MDRD) Non-Af Glucose NT-Pro-B Natriuret Pep Total Protein Urine Protein 100 H Urine Glucose (UA) 150 H Urine Blood MODERATE H Ur Leukocyte Esterase TRACE H 12/15/19 15:23 Laboratories show the patient has a chronic kidney failure and is currently in follow-up with the local baby formula mixer. At this point in time patient is not in congestive heart failure to any degree that requires emergent dialysis patient's potassium is 5.1 again not in any danger of requiring emergent dialysis. - Diagnostic Test Radiology reviewed: Image reviewed, Reports reviewed Radiology results interpreted by me: 12/15/19 15:24 Chest x-ray shows no congestive heart failure otherwise negative. Discharge - Discharge Clinical Impression: Chronic renal failure, stage 4 (severe), Hypertension Condition: Good Disposition: HOME, SELF-CARE Additional Instructions: Kidney Failure When your kidneys no longer filter the blood adequately, we call this "kidney failure." While kidney failure can happen suddenly, usually it's the result of many years of slow damage. Kidneys can be injured by many different medical problems including infections, diabetes, high blood pressure, kidney stones, drug toxicity, and immune reactions. The symptoms of kidney failure do not develop until most of the normal kidney tissue has been lost. Early kidney failure usually has no symptoms. As it gets worse, symptoms can include weakness, confusion, high blood pressure, swelling, nausea, anemia, and itching. The seriousness of kidney failure is determined by measuring kidney function tests such as BUN or creatinine. The cause of kidney failure may be obvious from the medical history, but occasionally requires special tests such as an angiogram or kidney biopsy. Kidney failure can cause high blood pressure, and uncontrolled hypertension damages kidneys. Good control of blood pressure is important. If you have diabetes, good blood sugar control helps prevent further kidney damage. Fluid retention can be monitored by checking your weight daily. It's best to eat a diet low in protein, potassium, and salt. When kidney failure becomes severe, dialysis or kidney transplant may be required. Call the doctor or return if you develop significant weakness, repeated vomiting, severe lightheadedness, confusion, severe headache, or other serious change in your health. Referrals: Suzy ROBERSON MD [Primary Care Provider] - Follow up as needed I personally performed the services described in the documentation, reviewed and edited the documentation which was dictated to the scribe in my presence, and it accurately records my words and actions.
== END 2019-12-15 15:46 | disposition home or self-care (01) ==
LOC: ER 10:43
DX: M79.10 Myalgia, unspecified site (principal); L29.9 Pruritus, unspecified; R11.0 Nausea; I12.9 Hypertensive chronic kidney disease with stage 1 through stage 4 chronic kidney disease, or unspecified chronic kidney disease; E11.22 Type 2 diabetes mellitus with diabetic chronic kidney disease; N18.4 Chronic kidney disease, stage 4 (severe); E78.00 Pure hypercholesterolemia, unspecified; Z88.0 Allergy status to penicillin; Z87.442 Personal history of urinary calculi
CPT/HCPCS: 99283; 96374; 36415; 85025; 80053; 81001; 84484; 83880; 71046; J1940; J3490

== ENCOUNTER 2019-12-17 13:07 | Inpatient (IN) | payer OTHER ==
[2019-12-17] MEDS ORDERED: INFLUENZA QUAD (6MOS+) 2019-20 VAC 0.5 ML SYR IM ONE (13:34)
[2019-12-17] MEDS ORDERED: OXYCODONE-ACETAMINOPHEN 5-325 MG TABLET PO PRN (14:43)
[2019-12-17] MEDS ORDERED: ONDANSETRON 4 MG TAB.RAPDIS PO PRN (14:43)
[2019-12-17] MEDS ORDERED: IPRATROPIUM/ALBUTEROL 0.5-2.5 MG/3 ML AMPUL NEB PRN (14:43)
[2019-12-17] MEDS ORDERED: ACETAMINOPHEN 325 MG TABLET PO PRN (14:43)
[2019-12-17] MEDS ORDERED: DEXTROSE 50%-WATER 25 GM/50 ML DISP.SYRIN IV PRN ×2 (15:14)
[2019-12-17] MEDS ORDERED: GLUCAGON,HUMAN RECOMB 1 MG INJ IM PRN (15:14)
[2019-12-17] MEDS ORDERED: DEXTROSE 40% GEL 15 GM TUBE PO PRN ×2 (15:14)
--- NOTE | 2019-12-17 15:19 | PDOC H&P ---
History of Present Illness Admission Date/PCP: 12/17/19 13:07 Suzy ROBERSON MD Patient complains of: Difficulty breathing and shortness of breath History of Present Illness: ISA LINDQUIST is a 44 year old male Patient was sent to the hospital for direct admission due to kidney failure. Patient has been having progressive worsening of his kidney function. His creatinine is essentially doubled in the last 6 months going from 3.85 in May to 7.32 on December 14. Has been getting acidotic with CO2 of about 17. Potassium is 5.1 on 315. He still has urine output He denies any chest pain. He was seen in the emergency room on December 14 apparently for possible encephalopathy as he was confused. Patient was advised to follow-up with his primary care physician after further evaluation. He was sent back today as he apparently has been having possible intermittent episodes At the time of my exam today he is awake and alert and able to answer questions Past Medical History Cardiac Medical History: Reports: Congestive Heart Failure, Hyperlipidema, Hypertension Endocrine Medical History: Reports: Diabetes Mellitus Type 1, Diabetes Mellitus Type 2 Renal/ Medical History: Reports: End Stage Renal Disease Psychiatric Medical History: Denies: Depression Past Surgical History Past Surgical History: Reports: Herniorrhaphy Social History Information Source: Patient Smoking Status: Former Smoker Frequency of Alcohol Use: Rare Hx Recreational Drug Use: No Drugs: None Hx Prescription Drug Abuse: No - Advance Directive Resuscitation Status: Full Code Family History Family History: Arthritis, CVA, DM, Hypertension, Malignancy Parental Family History Reviewed: Yes Children Family History Reviewed: Yes Sibling(s) Family History Reviewed.: Yes Medication/Allergy Home Medications: Amlodipine Besylate [Norvasc 10 mg Tablet] 10 mg PO DAILY #30 tablet 09/20/18 Losartan Potassium [Cozaar 50 mg Tablet] 50 mg PO DAILY 30 Days #30 tablet 09/20/18 Calcitriol [Rocaltrol 0.5 mcg Capsule] 0.5 mcg PO DAILY 12/17/19 Clonidine HCl [Catapres 0.2 mg Tablet] 0.4 mg PO Q8 12/17/19 Furosemide [Lasix 20 mg Tablet] 20 mg PO DAILY 12/17/19 Furosemide [Lasix 40 mg Tablet] 40 mg PO DAILYP PRN 12/17/19 Glipizide [Glucotrol 5 mg Tablet] 10 mg PO BID 03/17/20 Meclizine HCl [Antivert 25 mg Tablet] 25 mg PO DAILYP PRN 12/17/19 Ondansetron [Zofran Odt 4 mg Tablet] 4 mg PO Q4HP PRN 12/17/19 Tramadol HCl [Ultram 50 mg Tablet] 50 mg PO Q6HP PRN 12/17/19 Allergies/Adverse Reactions: Penicillins Allergy (Verified 12/15/19 10:48) Review of Systems All systems: reviewed and no additional remarkable complaints except as stated Cardiovascular: PRESENT: dyspnea on exertion, orthropnea. ABSENT: chest pain, palpitations Gastrointestinal: ABSENT: abdominal pain, heartburn Genitourinary: ABSENT: difficulty urinating, dysuria, hematuria Musculoskeletal: ABSENT: back pain Neurological: ABSENT: abnormal gait, abnormal speech, confusion, dizziness, focal weakness, syncope Psychiatric: ABSENT: anxiety, depression, homidical ideation, suicidal ideation Physical Exam Vital Signs: Temp Pulse Resp BP Pulse Ox 85 12/17/19 13:12 Intake & Output 12/16/19 12/17/19 12/18/19 06:59 06:59 06:59 Weight 107.5 kg General appearance: PRESENT: no acute distress, morbidly obese, well-developed, well-nourished Head exam: PRESENT: atraumatic, normocephalic Eye exam: PRESENT: conjunctiva pink, EOMI, PERRLA. ABSENT: scleral icterus Ear exam: PRESENT: normal external ear exam Mouth exam: PRESENT: moist, tongue midline Neck exam: ABSENT: carotid bruit, JVD, lymphadenopathy, thyromegaly Respiratory exam: PRESENT: clear to auscultation kay. ABSENT: rales, rhonchi, wheezes Cardiovascular exam: PRESENT: RRR, +S1, +S2. ABSENT: diastolic murmur, rubs, systolic murmur Pulses: PRESENT: normal dorsalis pedis pul Vascular exam: PRESENT: normal capillary refill GI/Abdominal exam: PRESENT: normal bowel sounds, soft. ABSENT: distended, guarding, mass, organolmegaly, rebound, tenderness Rectal exam: PRESENT: deferred Extremities exam: PRESENT: full ROM, +1 edema. ABSENT: calf tenderness, cl ubbing, pedal edema Neurological exam: PRESENT: alert, awake, oriented to person, oriented to place, oriented to time, oriented to situation, CN II-XII grossly intact. ABSENT: motor sensory deficit Psychiatric exam: PRESENT: appropriate affect, normal mood. ABSENT: homicidal ideation, suicidal ideation Skin exam: PRESENT: dry, intact, warm. ABSENT: cyanosis, rash Results Laboratory Results: Currently pending Assessment and Plan - Diagnosis (1) End stage renal disease Is this a current diagnosis for this admission?: Yes Plan: Patient was sent for the likely initiation of dialysis by header set up operator. He is currently in no distress. Nephrology has been contacted he will need to be started on dialysis (2) Hypertension Is this a current diagnosis for this admission?: Yes Plan: Patient will be placed on his home antihypertensive regimen. Once he is dialyzed I also expect his blood pressure to improve (3) Uncontrolled type 2 diabetes mellitus Qualifiers: Glycemic state: with hyperglycemia Qualified Code(s): E11.65 - Type 2 d iabetes mellitus with hyperglycemia Is this a current diagnosis for this admission?: Yes Plan: Patient will be placed on sliding scale insulin as well as his hypoglycemic agent - Time Within: within 48 hours - Inpatient Certification Based on my medical assessment, after consideration of the patient's comorbidities, presenting symptoms, or acuity I expect that the services needed warrant INPATIENT care.: Yes I certify that my determination is in accordance with my understanding of Medicare's requirements for reasonable and necessary INPATIENT services [42 CFR 412.3e].: Yes Medical Necessity: Need for IV Antibiotics
[2019-12-17 15:23] LABS: ABSOLUTE BASOPHILS # (AUTO) 0.2 10^3/uL (0.0-0.2); ABSOLUTE EOSINOPHILS # (AUTO) 0.6 10^3/uL (0.0-0.6); ABSOLUTE LYMPHOCYTES (AUTO) 2.9 10^3/uL (0.5-4.7); ABSOLUTE MONOCYTES (AUTO) 0.9 10^3/uL (0.1-1.4); ABSOLUTE NEUT (AUTO) 8.4 10^3/uL (1.7-8.2); BASOPHILS % (AUTO) 1.2 % (0-2); EOSINOPHILS % (AUTO) 4.4 % (0-6); HEMATOCRIT 36.3 % (37.9-51.0); HEMOGLOBIN 12.7 g/dL (13.5-17.0); LYMPHOCYTES % (AUTO) 22.5 % (13-45); MEAN CORPUSCULAR HEMOGLOBIN 29.8 pg (27.0-33.4); MEAN CORPUSCULAR HGB CONC 34.9 g/dL (32.0-36.0); MEAN CORPUSCULAR VOLUME 85 fl (80-97); MONOCYTES % (AUTO) 7.2 % (3-13); PLATELET COUNT 319 10^3/uL (150-450); RED BLOOD COUNT 4.25 10^6/uL (4.35-5.55); SEGMENTED NEUTROPHILS % (AUTO) 64.7 % (42-78); TOTAL CELLS COUNTED % (AUTO) 100 %; WHITE BLOOD COUNT 13.1 10^3/uL (4.0-10.5)
[2019-12-17 15:40] LABS: INTERNATIONAL RATION (INR) 0.98
[2019-12-17 15:45] LABS: ANION GAP 19 (5-19); BLOOD UREA NITROGEN 78 mg/dL (7-20); CALCIUM 9.5 mg/dL (8.4-10.2); CARBON DIOXIDE 16 mmol/L (22-30); CHLORIDE 103 mmol/L (98-107); GLUCOSE 87 mg/dL (75-110); POTASSIUM 4.8 mmol/L (3.6-5.0)
[2019-12-17] MEDS: INSULIN REG, HUMAN 100 UNIT/ML 3 ML VIAL (PYX) SUBCUT SCH ×2 (16:12→21:56)
--- NOTE | 2019-12-17 16:24 | RADIOLOGY REPORT (SQ) ---
EXAM DESCRIPTION: CHEST SINGLE VIEW COMPLETED DATE/TIME: 12/17/2019 4:14 pm REASON FOR STUDY: Dyspnea COMPARISON: 12/15/2019. EXAM PARAMETERS: NUMBER OF VIEWS: One view. TECHNIQUE: Single frontal radiographic view of the chest acquired. RADIATION DOSE: NA LIMITATIONS: None. FINDINGS: LUNGS AND PLEURA: No opacities, masses or pneumothorax. No pleural effusion. MEDIASTINUM AND HILAR STRUCTURES: No masses. Contour normal. HEART AND VASCULAR STRUCTURES: Heart normal in size. Normal vasculature. BONES: No acute findings. HARDWARE: None in the chest. OTHER: No other significant finding. IMPRESSION: NO ACUTE RADIOGRAPHIC FINDING IN THE CHEST. TECHNICAL DOCUMENTATION: JOB ID: [id number] 2010 [employer]- All Rights Reserved Reading location - IP/workstation name: [email or web address]
[2019-12-17] MEDS ORDERED: CLONIDINE HCL 0.2 MG TABLET PO ONE (16:30)
[2019-12-17] MEDS ORDERED: AMLODIPINE BESYLATE 10 MG TABLET PO ONE (16:30)
[2019-12-17] MEDS ORDERED: FUROSEMIDE 20 MG TABLET PO ONE (16:30)
[2019-12-17] MEDS ORDERED: LOSARTAN POTASSIUM 50 MG TABLET PO ONE (16:30)
[2019-12-17] MEDS ORDERED: GLIPIZIDE 5 MG TABLET PO SCH (18:00)
--- NOTE | 2019-12-17 19:19 | Operative Report ---
Operative Report DATE OF SURGERY: 12/17/19 PREOPERATIVE DIAGNOSIS: End-stage renal disease requiring dialysis POSTOPERATIVE DIAGNOSIS: Same OPERATION: Placement of dialysis catheter 30 cm the the right femoral vein under ultrasound guidance SURGEON: LIAN REYES ANESTHESIA: Local TISSUE REMOVED OR ALTERED: None ESTIMATED BLOOD LOSS: 10 cc QUANTITATIVE BLOOD LOSS: 10 INTRAOPERATIVE FINDINGS: Normal caliber of right femoral vein on ultrasound PROCEDURE: After informed consent for femoral dialysis catheter placement patient was placed in supine position while in bed. The right groin area was then prepped and draped in the usual sterile fashion. With the use of the ultrasound the right femoral vein was then identified. Local anesthesia infiltrated over the skin. A needle was then inserted through the skin towards the area of the femoral vein and blood aspirated was dark and nonpulsatile indicating venous blood. Next the guidewire was then passed through the needle towards the inferior vena cava. Needle was removed and the insertion site dilated. A dialysis catheter 30 cm long was then threaded through the guidewire all the way to the hub of the catheter and the guidewire was then pulled out. All the 3 ports aspirated blood easily and infused saline easily. The catheter was then anchored to the skin with 3-0 nylon. Biopatch placed at the insertion site and a transparent sterile dressing was then placed over the Biopatch and catheter. Patient tolerated procedure well.
[2019-12-17] MEDS ORDERED: TUBERCULIN,PURIF.PROT.DERIV. 5 TU/0.1 ML TEST 1 ML VIAL ID ONE ×2 (21:54→23:42)
[2019-12-17] MEDS: CLONIDINE HCL 0.2 MG TABLET PO SCH (21:58)
[2019-12-17] MEDS ORDERED: CLONIDINE HCL 0.2 MG TABLET PO SCH (22:00)
--- NOTE | 2019-12-17 23:04 | PDOC CONSULTATION ---
Consultation Consult Date: 12/17/19 Provider Consulted: BUSTER ARIAS Consult reason:: ESRD requiring HD History of Present Illness Admission Date/PCP: 12/17/19 13:07 Suzy ROBERSON MD History of Present Illness: ISA LINDQUIST is a 44 year old male with history of chronic kidney disease stage V, diabetes mellitus type 2, hypertension and congestive heart failure who was sent [facility] in coordination with the hospitalist service for admission due to worsening kidney function starting uremic symptoms. Patient states that he has not been feeling good. He complains of nausea but no vomiting. He states that he had diarrhea yesterday but not today. He complains of body aches and itching. He said he feels tired and has been sleeping a lot for the last 2 months but has just gotten worse. He does admit though that he has good appetite. His lower extremity swelling fluctuates in intensity. He was in the emergency room 2 days ago with the same symptoms and was discharged home. [facility] er symptoms persisted. His blood pressure has also not been very well controlled and is remained to be elevated. He claims that he is taking his medications. Today he states that he is having abdominal cramps also. He reports that he gets slightly disoriented at times but he also admits that he has some learning disability disorder. He still reports that he has good urine output. He denies any gross hematuria or foamy urine. Labs today showed a BUN of 78 creatinine of 8.14 EGFR 7. His kidney function has obviously progress significantly for the last 2 to 3 months. On December 14 he had a BUN of 70, creatinine of 7.32 with EGFR of 8; November 29 he had a BUN of 71, creatinine of 6.59 with EGFR of 9; and on October 25, 2019 he had a BUN of 63, creatinine of 6.16 with EGFR of 10. Past Medical History Past Medical History: History of learning disability. Cardiac Medical History: Reports: CHF-Diastolic, Hyperlipidemia, Hypertension- primary Neurological Medical History: Reports: Other - Right frontal lobe brain cyst since 09/2019 Endocrine Medical History: Reports: Diabetes Mellitus Type 2 Renal/ Medical History: Reports: End Stage Renal Disease Psychiatric Medical History: Denies: Depression Hematology Medical History: Reports Anemia Past Surgical History Past Surgical History: Reports: Herniorrhaphy, Other - Reported heart surgery as a baby. Social History Information Source: Patient Lives with: Spouse/Significant other Smoking Status: Former Smoker Frequency of Alcohol Use: Rare Hx Recreational Drug Use: No Drugs: None Hx Prescription Drug Abuse: No - Advance Directive Resuscitation Status: Full Code Family History Family History: Chronic Kidney Disease - Father, unknown if on dialysis, DM - Father, mother, brother, Hypertension - Father and brother, Malignancy - Mother Parental Family History Reviewed: Yes Children Family History Reviewed: Yes Sibling(s) Family History Reviewed.: Yes Medication/Allergy Home Medications: Amlodipine Besylate [Norvasc 10 mg Tablet] 10 mg PO DAILY #30 tablet 09/20/18 Losartan Potassium [Cozaar 50 mg Tablet] 50 mg PO DAILY 30 Days #30 tablet 09/20/18 Calcitriol [Rocaltrol 0.5 mcg Capsule] 0.5 mcg PO DAILY 12/17/19 Clonidine HCl [Catapres 0.2 mg Tablet] 0.2 mg PO Q8 12/17/19 Furosemide [Lasix 20 mg Tablet] 20 mg PO DAILY 12/17/19 Furosemide [Lasix 40 mg Tablet] 40 mg PO DAILYP PRN 12/17/19 Glipizide [Glucotrol 5 mg Tablet] 10 mg PO BID 12/17/19 Meclizine HCl [Antivert 25 mg Tablet] 25 mg PO DAILYP PRN 12/17/19 Ondansetron [Zofran Odt 4 mg Tablet] 4 mg PO Q4HP PRN 12/17/19 Tramadol HCl [Ultram 50 mg Tablet] 50 mg PO Q6HP PRN 12/17/19 Allergies/Adverse Reactions: Penicillins Allergy (Verified 12/15/19 10:48) Review of Systems All systems: reviewed and no additional remarkable complaints except as stated Review of Systems: Constitutional: ABSENT: chills, fever(s), headache(s), weight gain, weight loss, admits worsening fatigue Eyes: ABSENT: visual disturbances Ears: ABSENT: hearing changes Cardiovascular: ABSENT: chest pain, dyspnea on exertion, edema, orthropnea, palpitations Respiratory: ABSENT: cough, dyspnea, hemoptysis Gastrointestinal: ABSENT: abdominal pain, constipation, hematemesis, hematochezia, vomiting; admits nausea and diarrhea, admits abdominal cramping Genitourinary: ABSENT: dysuria, hematuria Musculoskeletal: ABSENT: joint swelling Integumentary: ABSENT: rash, wounds; admits pruritus Neurological: ABSENT: abnormal gait, abnormal speech, confusion, dizziness, focal weakness, numbness, syncope Psychiatric: ABSENT: anxiety, depression Endocrine: ABSENT: cold intolerance, heat intolerance, polydipsia, polyuria Hematologic/Lymphatic: ABSENT: easy bleeding, easy bruising, lymphadenopathy Physical Exam Vital Signs: Temp Pulse Resp BP Pulse Ox 85 12/17/19 13:12 Intake & Output 12/16/19 12/17/19 12/18/19 06:59 06:59 06:59 Weight 107.5 kg Exam: General appearance: No acute distress, cooperative, well-developed, well- nourished Head exam: PRESENT: atraumatic, normocephalic Eye exam: PRESENT: Conjunctiva Spearman, EOMI, PERRLA. ABSENT: conjunctival injection, scleral icterus Mouth exam: PRESENT: moist, neck supple, tongue midline Neck exam: PRESENT: full ROM. ABSENT: carotid bruit, JVD, lymphadenopathy, thyromegaly Respiratory exam: PRESENT: clear to auscultation bilaterally. ABSENT: rales, rhonchi, stridor, wheezes Cardiovascular exam: PRESENT: RRR, +S1, +S2. ABSENT: systolic murmur Pulses: PRESENT: normal radial pulses, normal dorsalis pedis pulses GI/Abdominal exam: PRESENT: normal bowel sounds, soft. ABSENT: guarding, mass, tenderness Rectal exam: Deferred Extremities exam: PRESENT: full ROM. Mild grade 1 bilateral lower extremities pitting edema ABSENT: calf tenderness Musculoskeletal: PRESENT: full ROM. ABSENT: deformity Neurological exam: PRESENT: alert, Awake, Oriented to person, Oriented to place, Oriented to time, reflexes normal, CN II-XII grossly intact. ABSENT: motor sensory deficit Psychiatric exam: PRESENT: appropriate affect, normal mood. ABSENT: homicidal ideation, suicidal ideation Skin exam: PRESENT: intact, dry, warm. ABSENT: rash Results Laboratory Results: 12/17/19 14:52 12/17/19 14:52 12/17/19 12/17/19 14:52 14:52 WBC 13.1 H RBC 4.25 L Hgb 12.7 L Hct 36.3 L MCV 85 MCH 29.8 MCHC 34.9 RDW 14.0 Plt Count 319 Seg Neutrophils % 64.7 Sodium 137.7 Potassium 4.8 Chloride 103 Carbon Dioxide 16 L Anion Gap 19 BUN 78 H Creatinine 8.14 H Est GFR ( Amer) 9 L Glucose 87 Calcium 9.5 Impressions: Chest X-Ray 12/17/19 14:46 IMPRESSION: NO ACUTE RADIOGRAPHIC FINDING IN THE CHEST. Assessment & Plan - Diagnosis (1) End stage renal disease Is this a current diagnosis for this admission?: Yes Plan: Patient has progressively worsening kidney disease for the last couple of mo nths. Underlying kidney disease most likely secondary to hypertension/diabetes mellitus. Patient has some starting uremic symptoms that would require initiation of chronic renal replacement therapy. I explained to the patient the different modalities of renal replacement therapy including hemodialysis and peritoneal dialysis. Also discussed how each of the modalities are being done. At this point during this hospitalization we are going to initiate hemodialysis but informed the patient that the home peritoneal dialysis option just in case he would be interested in that after this session. Splane to the patient the benefits of starting him on hemodialysis to relieve his symptoms as well as the risks including but not limited to infection, bleeding, arrhythmia and hemodynamic instability and rarely cardiac arrest during dialysis treatment. Patient agreed to proceed with dialysis treatment. We will plan to do dialysis starting tomorrow morning. Will consult our surgical is, Dr. Price to place a temporary dialysis catheter for dialysis tomorrow. I also spoke with Dr. Osorio, her vascular surgeon to schedule the patient for PermCath placement prior to discharge. So the production planner to arrange chronic hemodialysis treatment at chronic facility at [facility]. We will place a PPD skin test and check his hepatitis B and C panels as requirement to be admitted to [facility] as a chronic dialysis patient. (2) Hypertension Is this a current diagnosis for this admission?: Yes Plan: Uncontrolled. Resume all home blood pressure medications and will adjust accordingly depending on his blood pressure while here in the hospital. (3) Diabetes mellitus type 2 in nonobese Is this a current diagnosis for this admission?: Yes (4) Metabolic acidosis Is this a current diagnosis for this admission?: Yes Plan: Due to ESRD. Initiating hemodialysis treatment should resolve this issue. (5) Anemia in chronic kidney disease Is this a current diagnosis for this admission?: Yes Plan: We will check iron panel. Patient does not require Retacrit yet. (6) Chronic kidney disease-mineral and bone disorder Is this a current diagnosis for this admission?: Yes Plan: He has elevated PTH of 667.5 and November 29, 2019. Wrist is also elevated at 6.0 so I will start the patient on Renvela. This can explain his pruritus. - Notes Notes: Thank you very much for this consultation. - Time Time Spent: Greater than 70 Minutes
[2019-12-18] MEDS ORDERED: HEPARIN SOD (PORCINE) 1,000 UNIT/ML 10 ML VIAL IV PRN (05:00)
[2019-12-18] MEDS ORDERED: NORMAL SALINE 1000 ML 1,000 ML IV PRN (05:00)
[2019-12-18 05:31] LABS: ANION GAP 17 (5-19); BLOOD UREA NITROGEN 78 mg/dL (7-20); CALCIUM 8.9 mg/dL (8.4-10.2); CARBON DIOXIDE 17 mmol/L (22-30); CHLORIDE 102 mmol/L (98-107); GLUCOSE 96 mg/dL (75-110); POTASSIUM 4.6 mmol/L (3.6-5.0)
[2019-12-18] MEDS: CLONIDINE HCL 0.2 MG TABLET PO SCH ×3 (05:51→21:28)
[2019-12-18] MEDS: INSULIN REG, HUMAN 100 UNIT/ML 3 ML VIAL (PYX) SUBCUT SCH ×4 (08:32→21:31)
[2019-12-18] MEDS: CALCITRIOL 0.25 MCG CAPSULE PO SCH (09:24)
[2019-12-18] MEDS: FUROSEMIDE 20 MG TABLET PO SCH (09:24)
[2019-12-18] MEDS: DOCUSATE SODIUM 100 MG CAPSULE PO SCH (09:24)
[2019-12-18] MEDS: LOSARTAN POTASSIUM 50 MG TABLET PO SCH (09:24)
[2019-12-18] MEDS: AMLODIPINE BESYLATE 10 MG TABLET PO SCH (09:24)
[2019-12-18] MEDS ORDERED: (PENDING PHARMACY ID) (Calcitriol [Rocaltrol 0.5 Mcg Capsule] 0.5 MCG) PO SCH (10:00)
--- NOTE | 2019-12-18 13:37 | PDOC PROGRESS REPORT ---
Subjective Progress Note for:: 12/18/19 Subjective:: No new complaints, awaiting HD today Reason For Visit: CKD 5,HYPERKALEMIA Physical Exam Vital Signs: Temp Pulse Resp BP Pulse Ox 97.6 F 79 18 142/95 H 100 12/18/19 08:21 12/18/19 08:21 12/18/19 08:21 12/18/19 08:21 12/18/19 08:21 Intake & Output 12/17/19 12/18/19 12/19/19 06:59 06:59 06:59 Intake Total 286 Output Total 275 Balance 11 Weight 107.6 kg General appearance: PRESENT: no acute distress, well-developed, well-nourished Head exam: PRESENT: atraumatic, normocephalic Eye exam: PRESENT: conjunctiva pink, EOMI. ABSENT: scleral icterus Mouth exam: PRESENT: tongue midline Neck exam: ABSENT: carotid bruit, JVD, lymphadenopathy, thyromegaly Respiratory exam: PRESENT: clear to auscultation kay. ABSENT: rales, rhonchi, wheezes Cardiovascular exam: PRESENT: RRR, +S1, +S2. ABSENT: diastolic murmur, rubs, systolic murmur Pulses: PRESENT: normal dorsalis pedis pul Vascular exam: PRESENT: normal capillary refill GI/Abdominal exam: PRESENT: normal bowel sounds, soft. ABSENT: distended, guarding, mass, organolmegaly, rebound, tenderness Rectal exam: PRESENT: deferred Extremities exam: PRESENT: full ROM, +1 edema. ABSENT: calf tenderness, clubbing, pedal edema Neurological exam: PRESENT: alert, awake, oriented to person, oriented to place, oriented to time, oriented to situation, CN II-XII grossly intact. ABSENT: motor sensory deficit Psychiatric exam: PRESENT: appropriate affect. ABSENT: homicidal ideation, suicidal ideation Skin exam: PRESENT: dry, intact, warm. ABSENT: cyanosis, rash Results Laboratory Results: 12/17/19 14:52 12/18/19 04:02 12/17/19 12/17/19 12/18/19 14:52 14:52 04:02 WBC 13.1 H RBC 4.25 L Hgb 12.7 L Hct 36.3 L MCV 85 MCH 29.8 MCHC 34.9 RDW 14.0 Plt Count 319 Seg Neutrophils % 64.7 Sodium 137.7 135.6 L Potassium 4.8 4.6 Chloride 103 102 Carbon Dioxide 16 L 17 L Anion Gap 19 17 BUN 78 H 78 H Creatinine 8.14 H 8.43 H Est GFR ( Amer) 9 L 8 L Glucose 87 96 Calcium 9.5 8.9 Impressions: Chest X-Ray 12/17/19 14:46 IMPRESSION: NO ACUTE RADIOGRAPHIC FINDING IN THE CHEST. Assessment and Plan - Diagnosis (1) End stage renal disease Is this a current diagnosis for this admission?: Yes Plan: To be started on dialysis per nephrology consult (2) Hypertension Is this a current diagnosis for this admission?: Yes Plan: Continue to adjust his medications as appropriate food and beverage server (3) Uncontrolled type 2 diabetes mellitus Qualifiers: Glycemic state: with hyperglycemia Qualified Code(s): E11.65 - Type 2 diabetes mellitus with hyperglycemia Is this a current diagnosis for this admission?: Yes Plan: Scale insulin
[2019-12-18] MEDS: SEVELAMER HCL 800 MG TABLET PO SCH (16:44)
--- NOTE | 2019-12-18 20:50 | PDOC PROGRESS REPORT ---
Subjective Progress Note for:: 12/18/19 Subjective:: I am seeing the patient during dialysis treatment. He said he feels good. Very comfortable and communicating very well. He also uses his cell phone a lot. He really denies any problem at this time but tells me that he had an itching attack this morning. So far he is tolerating dialysis without any issues. Reason For Visit: CKD 5,HYPERKALEMIA Physical Exam Vital Signs: Temp Pulse Resp BP Pulse Ox 97.6 F 79 18 142/95 H 100 12/18/19 08:21 12/18/19 08:21 12/18/19 08:21 12/18/19 08:21 12/18/19 08:21 Intake & Output 12/17/19 12/18/19 12/19/19 06:59 06:59 06:59 Intake Total 286 Output Total 275 Balance 11 Weight 107.6 kg Vitals during dialysis: Blood pressure 158/97, heart rate of 83, blood flow rate of 250 mL/min and dialysate flow rate of 600 mL/min. Exam: General appearance: PRESENT: no acute distress, cooperative, well-developed, well-nourished Head exam: PRESENT: atraumatic, normocephalic Eye exam: PRESENT: conjunctiva pink, PERRLA. ABSENT: scleral icterus Neck exam: ABSENT: JVD Respiratory exam: PRESENT: Normal breath sounds. ABSENT: crackles, rales, rhonchi, unlabored, wheezes Cardiovascular exam: PRESENT: Regular rate rhythm -+S1, +S2. ABSENT: diastolic murmur, systolic murmur GI/Abdominal exam: PRESENT: normal bowel sounds, soft. ABSENT: guarding, mass, tenderness Extremities exam: ABSENT: No edema Neurological exam: PRESENT: alert, awake, oriented to person, place and time. Skin exam: PRESENT: dry, warm, Results Laboratory Results: 12/17/19 14:52 12/18/19 04:02 12/17/19 12/17/19 12/18/19 14:52 14:52 04:02 WBC 13.1 H RBC 4.25 L Hgb 12.7 L Hct 36.3 L MCV 85 MCH 29.8 MCHC 34.9 RDW 14.0 Plt Count 319 Seg Neutrophils % 64.7 Sodium 137.7 135.6 L Potassium 4.8 4.6 Chloride 103 102 Carbon Dioxide 16 L 17 L Anion Gap 19 17 BUN 78 H 78 H Creatinine 8.14 H 8.43 H Est GFR ( Amer) 9 L 8 L Glucose 87 96 Calcium 9.5 8.9 Impressions: Chest X-Ray 12/17/19 14:46 IMPRESSION: NO ACUTE RADIOGRAPHIC FINDING IN THE CHEST. Assessment & Plan - Diagnosis (1) End stage renal disease Is this a current diagnosis for this admission?: Yes Plan: Today is the patient's first dialysis treatment. We will do dialysis today for 2.5 hours, using the patient's right femoral dialysis catheter, with 2 potassium bath, blood flow rate of 250 mL per minute, dialysate flow rate of 100 mL per minute, ultrafiltration 1 to 2 L as tolerated, no heparin and no Procrit. Patient will be monitored throughout dialysis treatment. Awaiting PermCath placement from Dr. Osorio. enterprise resource planner also to arrange outpatient [facility] 3 times a week. Once the patient is a PermCath and outpatient dialysis arranged at [facility], patient may be discharged home. (2) Hypertension Is this a current diagnosis for this admission?: Yes Plan: Improving but still suboptimal. May need further adjustment of blood pressure medications. (3) Metabolic acidosis Is this a current diagnosis for this admission?: Yes Plan: With dialysis treatment, hopefully this will resolve. (4) Diabetes mellitus type 2 in nonobese Is this a current diagnosis for this admission?: Yes (5) Anemia in chronic kidney disease Is this a current diagnosis for this admission?: Yes Plan: Mild. Does not need Retacrit at this time. (6) Chronic kidney disease-mineral and bone disorder Is this a current diagnosis for this admission?: Yes Plan: PTH is elevated at 667.5, patient on calcitriol. Phosphorus is 7.9. I will start him on Renvela. - Time Time with patient: 15-25 minutes
--- NOTE | 2019-12-18 22:03 | PDOC CONSULTATION ---
Consultation Consult Date: 12/18/19 Provider Consulted: SURGICAL SURGICALIST Consult reason:: Permacath placement History of Present Illness Admission Date/PCP: 12/17/19 13:07 Suzy ROBERSON MD History of Present Illness: ISA LINDQUIST is a 44 year old male seen in consultation at the request of the hospitalist service. This is a patient with end-stage renal disease, now requiring dialysis. The patient had a femoral Vas-Cath placed for urgent dialysis. The patient now will require a permacath for more stable dialysis access. Currently, the patient denies any pain. He is receiving dialysis, without incident or complication. He denies fevers, chills, nausea, vomiting, headache, dizziness, orthostasis, chest pain, shortness of breath, melena, hematochezia, hematemesis, blurry vision. Past Medical History Cardiac Medical History: Reports: Congestive Heart Failure, Hyperlipidema, Hypertension Neurological Medical History: Reports: Other - Right frontal lobe brain cyst since 09/2019 Endocrine Medical History: Reports: Diabetes Mellitus Type 1, Diabetes Mellitus Type 2 Renal/ Medical History: Reports: End Stage Renal Disease Psychiatric Medical History: Denies: Depression Hematology: Reports: Anemia Past Surgical History Past Surgical History: Reports: Herniorrhaphy, Other - Reported heart surgery as a baby. Social History Lives with: Spouse/Significant other Smoking Status: Former Smoker Frequency of Alcohol Use: Rare Hx Recreational Drug Use: No Drugs: None Hx Prescription Drug Abuse: No - Advance Directive Resuscitation Status: Full Code Family History Family History: Arthritis, CVA, DM, Hypertension, Malignancy Parental Family History Reviewed: Yes Children Family History Reviewed: Yes Sibling(s) Family History Reviewed.: Yes Medication/Allergy Home Medications: Amlodipine Besylate [Norvasc 10 mg Tablet] 10 mg PO DAILY #30 tablet 09/20/18 Losartan Potassium [Cozaar 50 mg Tablet] 50 mg PO DAILY 30 Days #30 tablet 09/20/18 Calcitriol [Rocaltrol 0.5 mcg Capsule] 0.5 mcg PO DAILY 12/17/19 Clonidine HCl [Catapres 0.2 mg Tablet] 0.2 mg PO Q8 12/17/19 Furosemide [Lasix 20 mg Tablet] 20 mg PO DAILY 12/17/19 Furosemide [Lasix 40 mg Tablet] 40 mg PO DAILYP PRN 12/17/19 Glipizide [Glucotrol 5 mg Tablet] 10 mg PO BID 12/17/19 Meclizine HCl [Antivert 25 mg Tablet] 25 mg PO DAILYP PRN 12/17/19 Ondansetron [Zofran Odt 4 mg Tablet] 4 mg PO Q4HP PRN 12/17/19 Tramadol HCl [Ultram 50 mg Tablet] 50 mg PO Q6HP PRN 12/17/19 Allergies/Adverse Reactions: Penicillins Allergy (Verified 12/15/19 10:48) Review of Systems Constitutional: ABSENT: anorexia, chills, fatigue Eyes: ABSENT: visual disturbances Ears: ABSENT: hearing changes Nose, Mouth, and Throat: ABSENT: mouth pain, sore throat Cardiovascular: ABSENT: chest pain Respiratory: ABSENT: cough Gastrointestinal: ABSENT: abdominal pain Genitourinary: ABSENT: dysuria Musculoskeletal: ABSENT: back pain Neurological: ABSENT: confusion, convulsions, dizziness Psychiatric: ABSENT: anxiety, depression Endocrine: ABSENT: cold intolerance, heat intolerance Hematologic/Lymphatic: ABSENT: easy bleeding, easy bruising Physical Exam Vital Signs: Temp Pulse Resp BP Pulse Ox 97.5 F 84 20 134/85 H 99 12/18/19 19:24 12/18/19 19:24 12/18/19 19:24 12/18/19 19:24 12/18/19 19:24 Intake & Output 12/17/19 12/18/19 12/19/19 06:59 06:59 06:59 Intake Total 286 1125 Output Total 275 1266 Balance 11 -141 Weight 107.6 kg General appearance: PRESENT: no acute distress, obese Head exam: PRESENT: atraumatic, normocephalic Eye exam: PRESENT: EOMI, PERRLA. ABSENT: scleral icterus Mouth exam: PRESENT: moist, neck supple Neck exam: ABSENT: meningismus, tenderness, thyromegaly, tracheal deviation Respiratory exam: PRESENT: unlabored. ABSENT: tachypnea Cardiovascular exam: ABSENT: tachycardia Vascular exam: PRESENT: normal capillary refill GI/Abdominal exam: PRESENT: soft. ABSENT: ascites, distended, tenderness Rectal exam: PRESENT: deferred Extremities exam: ABSENT: clubbing Musculoskeletal exam: ABSENT: deformity Neurological exam: PRESENT: alert, awake, oriented to person, oriented to place, oriented to time, oriented to situation, CN II-XII grossly intact Psychiatric exam: ABSENT: agitated, anxious, depressed Focused psych exam: ABSENT: delusional Skin exam: ABSENT: cyanosis, erythema, jaundice Results Laboratory Results: 12/17/19 14:52 12/18/19 04:02 12/18/19 12/18/19 04:02 04:02 Sodium 135.6 L Potassium 4.6 Chloride 102 Carbon Dioxide 17 L Anion Gap 17 BUN 78 H Creatinine 8.43 H Est GFR ( Amer) 8 L Glucose 96 Calcium 8.9 Phosphorus 7.9 H Impressions: Chest X-Ray 12/17/19 14:46 IMPRESSION: NO ACUTE RADIOGRAPHIC FINDING IN THE CHEST. Assessment & Plan - Diagnosis (1) End stage renal disease Is this a current diagnosis for this admission?: Yes - Plan Summary Plan Summary: This is a 44-year-old male with end-stage renal disease. He currently has a femoral Vas-Cath for urgent dialysis needs. The patient will require a more stable dialysis access. Plan for permacath tomorrow with Dr. Copeland. I have discussed the procedure with the patient at length. Risks/benefits discussed, informed consent obtained, and all questions answered.
[2019-12-19] MEDS: CLONIDINE HCL 0.2 MG TABLET PO SCH ×3 (05:18→21:28)
[2019-12-19] MEDS ORDERED: MIDAZOLAM 2 MG/2 ML INJ ONE (06:58)
[2019-12-19] MEDS ORDERED: FENTANYL CITRATE INJ/PF 100 MCG/2 ML AMPUL ONE (06:58)
[2019-12-19] MEDS ORDERED: PROPOFOL INJ 200 MG/20 ML VIAL IV ONE (06:58)
[2019-12-19 08:37] LABS: HEPATITS B SURFACE ANTIGEN Negative (Negative)
[2019-12-19] MEDS: INSULIN REG, HUMAN 100 UNIT/ML 3 ML VIAL (PYX) SUBCUT SCH ×4 (09:00→21:26)
[2019-12-19] MEDS ORDERED: LIDOCAINE 1%/EPINEPHRINE INJ 20 ML VIAL ONE ×2 (09:09→10:51)
[2019-12-19 09:18] LABS: HEPATITIS B CORE AB TOT Negative (Negative)
[2019-12-19] MEDS ORDERED: CLINDAMYCIN PHOSPHATE INJ 300 MG/2 ML SDV ONE (09:57)
[2019-12-19] MEDS ORDERED: DIPHENHYDRAMINE HCL 50 MG/ML VIAL IV PRN (10:29)
[2019-12-19] MEDS ORDERED: ONDANSETRON HCL INJ/PF 4 MG/2 ML SDV IV PRN (10:29)
[2019-12-19] MEDS ORDERED: FENTANYL CITRATE INJ/PF 100 MCG/2 ML AMPUL IV PRN ×3 (10:29)
[2019-12-19] MEDS ORDERED: MEPERIDINE HCL/PF INJ 25 MG/1 ML DISP.SYRIN IV PRN (10:29)
[2019-12-19] MEDS ORDERED: LIDOCAINE 1%/EPINEPHRINE INJ 20 ML VIAL INJ ONE (10:52)
[2019-12-19] MEDS ORDERED: HEPARIN SOD (PORCINE) 5,000 UNIT/ML 1 ML VIAL ONE (11:19)
--- NOTE | 2019-12-19 11:32 | Operative Report ---
Operative Report DATE OF SURGERY: 12/19/19 PREOPERATIVE DIAGNOSIS: Acute renal failure POSTOPERATIVE DIAGNOSIS: Same OPERATION: 1. Focused ultrasound right neck. 2. Ultrasound directed insertion of permacatheter, 23 cm tip to cuff into right internal jugular vein. 3. Interpretation of intraoperative fluoroscopy SURGEON: JAIRO BLACK ANESTHESIA: LMAC TISSUE REMOVED OR ALTERED: None COMPLICATIONS: None ESTIMATED BLOOD LOSS: Scant INTRAOPERATIVE FINDINGS: See below PROCEDURE: Patient was taken to the preop holding area to the main operating room where LMAC anesthesia was induced. Arms were tucked in the supine fashion adjacent to the patient. The right neck and right chest wall were exposed, prepped and draped in sterile fashion with Betadine. Surgical plan surgical timeout were conducted. Skin overlying the right internal jugular vein was anesthetized 1% plain lidocaine. Ultrasonography real-time was used to guide venipuncture with the 18-gauge needle. A wire 0.030 inch was threaded into the right internal jugular vein. A suitable site for exit of the permacatheter was chosen in the right subclavian position. Skin was anesthetized 1% plain lidocaine. An incision was made with a #15 blade, and the permacatheter was tunneled between the 2 incisions. The cuff of the PermCath was way between the 2 incisions. Now under fluoroscopic guidance the small, medium, and large dilators were then threaded over the 0.030 guidewire all under fluoroscopic guidance without difficulty. We then threaded the final 18 Slovenian dilator and introducer sheath over the guidewire, guidewire and dilator removed, catheter free and threaded into the strip away sheath, the sheath was then removed, leaving the catheter in the internal jugular vein with the tip in the superior vena cava-right atrial junction. There was no evidence of ectopy. We visualized the path of the cat heter and there is no evidence of kinking. The catheter was aspirated and flushed and functioning satisfactorily. Wounds closed with 3-0 Vicryl, that is secured to the skin at 2 sites with a 2-0 Pro aurora suture and Biopatch. Sterile dressings were applied. Benzoin and Steri- Strips of the right neck applied. Patient tolerated procedure well, taken to recovery in stable condition. Portable upright chest x-ray pending at time dictation. The catheter will be loaded with concentrated heparin.
--- NOTE | 2019-12-19 11:54 | RADIOLOGY REPORT (SQ) ---
EXAM DESCRIPTION: CHEST SINGLE VIEW COMPLETED DATE/TIME: 12/19/2019 11:39 am REASON FOR STUDY: s/p permacath placement COMPARISON: 12/17/2019 EXAM PARAMETERS: NUMBER OF VIEWS: One view. TECHNIQUE: Single frontal radiographic view of the chest acquired. RADIATION DOSE: NA LIMITATIONS: None. FINDINGS: LUNGS AND PLEURA: No opacities, masses or pneumothorax. No pleural effusion. MEDIASTINUM AND HILAR STRUCTURES: No masses. Contour normal. HEART AND VASCULAR STRUCTURES: Heart normal in size. Normal vasculature. BONES: No acute findings. HARDWARE: None in the chest. OTHER: Right-sided central line tip overlying cavoatrial junction. IMPRESSION: Good position of central line. No pneumothorax. TECHNICAL DOCUMENTATION: JOB ID: [id number] [employer]- All Rights Reserved Reading location - IP/workstation name: [email or web address]
--- NOTE | 2019-12-19 14:46 | RADIOLOGY REPORT (SQ) ---
EXAM DESCRIPTION: FLUORO/CV PLACEMENT COMPLETED DATE/TIME: 12/19/2019 1:57 pm REASON FOR STUDY: PERMACATH PLACEMENT RIGHT SIDE ASSISTED WITH FLUOROSCOPY IN SURGERY COMPARISON: None. FLUOROSCOPY TIME: 0.1 minutes Spot images saved to PACS. TECHNIQUE: Intra-operative images acquired during surgical procedure to evaluate progress. NUMBER OF IMAGES: 4 LIMITATIONS: None. FINDINGS: Fluoroscopy was provided for intraoperative procedure. Please refer to the operative repo rt for further discussion. IMPRESSION: IMAGE(S) OBTAINED DURING PROCEDURE. COMMENT: Quality ID [id number]: Final reports for procedures using fluoroscopy that document radiation exp osure indices, or exposure time and number of fluorographic images (if radiation exposure indices are not available) Please consult full operative report of the attending physician for description of the procedure. TECHNICAL DOCUMENTATION: JOB ID: [id number] 2010 [email or web address]- All Rights Reserved Reading location - IP/workstation name: [email or web address]
[2019-12-19] MEDS: SEVELAMER HCL 800 MG TABLET PO SCH ×2 (16:08→16:14)
[2019-12-19] MEDS: FUROSEMIDE 20 MG TABLET PO SCH (16:09)
[2019-12-19] MEDS: DOCUSATE SODIUM 100 MG CAPSULE PO SCH (16:09)
[2019-12-19] MEDS: LOSARTAN POTASSIUM 50 MG TABLET PO SCH (16:09)
[2019-12-19] MEDS: AMLODIPINE BESYLATE 10 MG TABLET PO SCH (16:09)
[2019-12-19] MEDS: CALCITRIOL 0.25 MCG CAPSULE PO SCH (16:10)
--- NOTE | 2019-12-19 16:56 | PDOC PROGRESS REPORT ---
Subjective Progress Note for:: 12/19/19 Subjective:: No new complaints, s/p Permacath today Reason For Visit: CKD 5,HYPERKALEMIA Physical Exam Vital Signs: Temp Pulse Resp BP Pulse Ox 98.1 F 89 18 134/65 H 97 12/19/19 12:15 12/19/19 13:59 12/19/19 13:59 12/19/19 12:15 12/19/19 13:59 Intake & Output 12/18/19 12/19/19 12/20/19 06:59 06:59 06:59 Intake Total 286 1725 1080 Output Total 275 1766 510 Balance 11 41 570 Weight 107.6 kg 110.7 kg General appearance: PRESENT: no acute distress, well-nourished Head exam: PRESENT: atraumatic, normocephalic Eye exam: PRESENT: conjunctiva pink, EOMI, PERRLA. ABSENT: scleral icterus Ear exam: PRESENT: normal external ear exam Mouth exam: PRESENT: moist, tongue midline Neck exam: ABSENT: carotid bruit, JVD, lymphadenopathy, thyromegaly Respiratory exam: PRESENT: clear to auscultation kay. ABSENT: rales, rhonchi, wheezes Cardiovascular exam: PRESENT: RRR, +S1, +S2. ABSENT: diastolic murmur, rubs, systolic murmur Pulses: PRESENT: normal dorsalis pedis pul Vascular exam: PRESENT: normal capillary refill GI/Abdominal exam: PRESENT: normal bowel sounds, soft. ABSENT: distended, guarding, mass, organolmegaly, rebound, tenderness Rectal exam: PRESENT: deferred Extremities exam: PRESENT: full ROM, +2 edema. ABSENT: calf tenderness, clubbing, pedal edema Neurological exam: PRESENT: alert, awake, oriented to person, oriented to place, oriented to time, oriented to situation, CN II-XII grossly intact. ABSENT: motor sensory deficit Psychiatric exam: PRESENT: appropriate affect, normal mood. ABSENT: homicidal ideation, suicidal ideation Skin exam: PRESENT: dry, intact, warm. ABSENT: cyanosis, rash Results Laboratory Results: 12/17/19 14:52 12/18/19 04:02 Impressions: Guidance Fluoroscopy 12/19/19 00:00 IMPRESSION: IMAGE(S) OBTAINED DURING PROCEDURE. Chest X-Ray 12/19/19 11:28 IMPRESSION: Good position of central line. No pneumothorax. Assessment and Plan - Diagnosis (1) End stage renal disease Is this a current diagnosis for this admission?: Yes Plan: Hemodialysis as per nephrology status post permacath placement (2) Hypertension Is this a current diagnosis for this admission?: Yes Plan: Better controlled (3) Uncontrolled type 2 diabetes mellitus Qualifiers: Glycemic state: with hyperglycemia Qualified Code(s): E11.65 - Type 2 diabetes mellitus with hyperglycemia Is this a current diagnosis for this admission?: Yes Plan: Blood sugar much better controlled he is currently on no hypoglycemic except for sliding scale insulin - Plan Summary Summary: Patient had ultrasound directed insertion of permacath. Patient is being monitored and remains hemodynamically stable. - Inpatient Certification Based on my medical assessment, after consideration of the patient's comorbidities, presenting symptoms, or acuity I expect that the services needed warrant INPATIENT care.: Yes Medical Necessity: Risk of Complication if Not Cared For in Hospital
[2019-12-20] MEDS: TRAMADOL HCL 50 MG TABLET PO PRN (02:16)
[2019-12-20 04:51] LABS: ABSOLUTE EOSINOPHILS # (AUTO) 0.4 10^3/uL (0.0-0.6); ABSOLUTE LYMPHOCYTES (AUTO) 2.3 10^3/uL (0.5-4.7); ABSOLUTE MONOCYTES (AUTO) 1.1 10^3/uL (0.1-1.4); ABSOLUTE NEUT (AUTO) 7.6 10^3/uL (1.7-8.2); BASOPHILS % (AUTO) 0.4 % (0-2); EOSINOPHILS % (AUTO) 3.9 % (0-6); HEMATOCRIT 31.5 % (37.9-51.0); HEMOGLOBIN 10.8 g/dL (13.5-17.0); LYMPHOCYTES % (AUTO) 20.3 % (13-45); MEAN CORPUSCULAR HEMOGLOBIN 28.9 pg (27.0-33.4); MEAN CORPUSCULAR HGB CONC 34.4 g/dL (32.0-36.0); MEAN CORPUSCULAR VOLUME 84 fl (80-97); MONOCYTES % (AUTO) 9.7 % (3-13); PLATELET COUNT 234 10^3/uL (150-450); RED BLOOD COUNT 3.75 10^6/uL (4.35-5.55); RED CELL DISTRIBUTION WIDTH 13.6 % (11.5-14.0); SEGMENTED NEUTROPHILS % (AUTO) 65.7 % (42-78); TOTAL CELLS COUNTED % (AUTO) 100 %; WHITE BLOOD COUNT 11.5 10^3/uL (4.0-10.5)
[2019-12-20] MEDS ORDERED: NORMAL SALINE 1000 ML 1,000 ML IV PRN (05:00)
[2019-12-20] MEDS ORDERED: HEPARIN SOD (PORCINE) 1,000 UNIT/ML 10 ML VIAL IV PRN (05:00)
[2019-12-20 05:16] LABS: ANION GAP 18 (5-19); BLOOD UREA NITROGEN 84 mg/dL (7-20); CARBON DIOXIDE 20 mmol/L (22-30); CHLORIDE 97 mmol/L (98-107); GLUCOSE 125 mg/dL (75-110); POTASSIUM 4.2 mmol/L (3.6-5.0)
[2019-12-20] MEDS: CLONIDINE HCL 0.2 MG TABLET PO SCH ×3 (06:26→21:20)
--- NOTE | 2019-12-20 09:57 | PDOC PROGRESS REPORT ---
Subjective Progress Note for:: 12/20/19 Reason For Visit: Patient seen today on dialysis. Chart review was done. Patient had a background history of diabetes, hypertension and stage ESRD and has been just initiated on dialysis initially through a right femoral catheter and now has had right IJ PermCath through which dialysis is being conducted now. He is doing well and has no specific complaints on dialysis. Vital signs are stable. Labs and medications were reviewed. Dialysis orders were reviewed with the treating dialysis nurse. Physical Exam Vital Signs: Temp Pulse Resp BP Pulse Ox 98.1 F 77 17 141/70 H 98 12/20/19 03:58 12/20/19 07:00 12/20/19 03:58 12/20/19 03:58 12/20/19 03:58 Intake & Output 12/19/19 12/20/19 12/21/19 06:59 06:59 06:59 Intake Total 1725 1580 Output Total 1766 2110 Balance -41 -530 Weight 110.7 kg 112.4 kg General appearance: PRESENT: no acute distress Respiratory exam: PRESENT: clear to auscultation kay. ABSENT: crackles Cardiovascular exam: PRESENT: +S1, +S2 GI/Abdominal exam: PRESENT: normal bowel sounds, soft. ABSENT: organomegaly, tenderness Extremities exam: ABSENT: pedal edema Neurological exam: PRESENT: alert, awake, oriented to person, oriented to place Results Laboratory Results: 12/20/19 04:20 12/20/19 04:20 12/20/19 12/20/19 04:20 04:20 WBC 11.5 H RBC 3.75 L Hgb 10.8 L Hct 31.5 L MCV 84 MCH 28.9 MCHC 34.4 RDW 13.6 Plt Count 234 Seg Neutrophils % 65.7 Sodium 134.9 L Potassium 4.2 Chloride 97 L Carbon Dioxide 20 L Anion Gap 18 BUN 84 H Creatinine 9.22 H Est GFR ( Amer) 8 L Glucose 125 H Calcium 9.0 Impressions: Guidance Fluoroscopy 12/19/19 00:00 IMPRESSION: IMAGE(S) OBTAINED DURING PROCEDURE. Chest X-Ray 12/19/19 11:28 IMPRESSION: Good position of central line. No pneumothorax. Assessment & Plan - Diagnosis (1) End stage renal disease Is this a current diagnosis for this admission?: Yes Plan: Patient seen on dialysis today. Undergoing dialysis without any issues. Dialysis being supervised to ensure safe and smooth procedure. Vital signs are stable. Dialysis orders were reviewed with the treating dialysis nurse. He can be discharged home after dialysis today. However before that he needs to have his temporary right femoral catheter removed. Discussed this with the treating nurse María in the dialysis unit as well as with the patient. He plans to continue outpatient dialysis at the [facility] unit with Maximiliano. He has questions which were answered. (2) Diabetes mellitus type 2 in nonobese Is this a current diagnosis for this admission?: Yes Plan: As per hospitalist. (3) Hypertension Is this a current diagnosis for this admission?: Yes Plan: Controlled. Monitor.
[2019-12-20] MEDS ORDERED: HYDROXYZINE HCL 10 MG TABLET PO PRN (10:35)
[2019-12-20] MEDS: LOSARTAN POTASSIUM 50 MG TABLET PO SCH ×2 (10:57→21:21)
[2019-12-20] MEDS: CALCITRIOL 0.25 MCG CAPSULE PO SCH (10:57)
[2019-12-20] MEDS: AMLODIPINE BESYLATE 10 MG TABLET PO SCH (10:57)
[2019-12-20] MEDS: DOCUSATE SODIUM 100 MG CAPSULE PO SCH (10:58)
[2019-12-20] MEDS: FUROSEMIDE 20 MG TABLET PO SCH (10:58)
[2019-12-20] MEDS: SEVELAMER HCL 800 MG TABLET PO SCH ×3 (10:58→17:40)
--- NOTE | 2019-12-20 11:43 | RADIOLOGY REPORT (SQ) ---
EXAM DESCRIPTION: CHEST SINGLE VIEW COMPLETED DATE/TIME: 12/20/2019 10:43 am REASON FOR STUDY: Status post right permacatheter placement, r/o ptx COMPARISON: Chest films 12/19/2019, 12/17/2019 EXAM PARAMETERS: NUMBER OF VIEWS: One view. TECHNIQUE: Single frontal radiographic view of the chest acquired. RADIATION DOSE: NA LIMITATIONS: None. FINDINGS: LUNGS AND PLEURA: No opacities, masses or pneumothorax. No pleural effusion. MEDIASTINUM AND HILAR STRUCTURES: No masses. Contour normal. HEART AND VASCULAR STRUCTURES: Heart normal in size. Normal vasculature. BONES: No acute findings. HARDWARE: Right central venous dialysis catheter tip superior vena cava OTHER: No other significant finding. IMPRESSION: Right-sided central venous dialysis catheter tip in the superior vena cava. No pneumoth orax TECHNICAL DOCUMENTATION: JOB ID: [id number] 2010 [employer]- All Rights Reserved Reading location - IP/workstation name: [email or web address]
[2019-12-20] MEDS: INSULIN REG, HUMAN 100 UNIT/ML 3 ML VIAL (PYX) SUBCUT SCH ×4 (12:38→21:20)
[2019-12-20] MEDS: HYDROXYZINE PAMOATE 25 MG CAPSULE PO PRN (14:02)
--- NOTE | 2019-12-20 16:26 | PDOC PROGRESS REPORT ---
Subjective Progress Note for:: 12/20/19 Subjective:: Feels better, no cough or SOB Reason For Visit: CKD 5,HYPERKALEMIA Physical Exam Vital Signs: Temp Pulse Resp BP Pulse Ox 98.3 F 84 18 156/96 H 98 12/20/19 12:00 12/20/19 14:17 12/20/19 14:17 12/20/19 12:00 12/20/19 14:17 Intake & Output 12/19/19 12/20/19 12/21/19 06:59 06:59 06:59 Intake Total 1725 1580 240 Output Total 1766 2110 1999 Balance -41 -530 -1760 Weight 110.7 kg 112.4 kg General appearance: PRESENT: no acute distress, morbidly obese, well-developed Head exam: PRESENT: atraumatic, normocephalic Eye exam: PRESENT: conjunctiva pale. ABSENT: scleral icterus Ear exam: PRESENT: normal external ear exam Mouth exam: PRESENT: tongue midline Neck exam: ABSENT: carotid bruit, JVD, lymphadenopathy, thyromegaly Respiratory exam: PRESENT: clear to auscultation kay. ABSENT: rales, rhonchi, wheezes Cardiovascular exam: PRESENT: RRR. ABSENT: diastolic murmur, rubs, systolic murmur Pulses: PRESENT: normal dorsalis pedis pul Vascular exam: PRESENT: normal capillary refill GI/Abdominal exam: PRESENT: normal bowel sounds, soft. ABSENT: distended, guarding, mass, organolmegaly, rebound, tenderness Rectal exam: PRESENT: deferred Extremities exam: PRESENT: full ROM. ABSENT: calf tenderness, clubbing, pedal edema Neurological exam: PRESENT: alert, awake, oriented to person, oriented to place, oriented to time, oriented to situation, CN II-XII grossly intact. ABSENT: motor sensory deficit Psychiatric exam: PRESENT: appropriate affect, normal mood. ABSENT: homicidal ideation, suicidal ideation Skin exam: PRESENT: dry, intact, warm. ABSENT: cyanosis, rash Results Laboratory Results: 12/20/19 04:20 12/20/19 04:20 12/20/19 12/20/19 04:20 04:20 WBC 11.5 H RBC 3.75 L Hgb 10.8 L Hct 31.5 L MCV 84 MCH 28.9 MCHC 34.4 RDW 13.6 Plt Count 234 Seg Neutrophils % 65.7 Sodium 134.9 L Potassium 4.2 Chloride 97 L Carbon Dioxide 20 L Anion Gap 18 BUN 84 H Creatinine 9.22 H Est GFR ( Amer) 8 L Glucose 125 H Calcium 9.0 Impressions: Guidance Fluoroscopy 12/19/19 00:00 IMPRESSION: IMAGE(S) OBTAINED DURING PROCEDURE. Chest X-Ray 12/20/19 07:01 IMPRESSION: Right-sided central venous dialysis catheter tip in the superior vena cava. No pneumothorax Assessment and Plan - Diagnosis (1) End stage renal disease Is this a current diagnosis for this admission?: Yes (2) Hypertension Is this a current diagnosis for this admission?: Yes (3) Uncontrolled type 2 diabetes mellitus Qualifiers: Glycemic state: with hyperglycemia Qualified Code(s): E11.65 - Type 2 diabetes mellitus with hyperglycemia Is this a current diagnosis for this admission?: Yes Plan: Blood sugar much better controlled he is currently on no hypoglycemic except for sliding scale insulin - Plan Summary Summary: Patient had ultrasound directed insertion of permacath. Patient is being monitored and remains hemodynamically stable. 12/19, she remains hemodynamically stable. There is no dialysis chair available yet so he will have to stay in hospital until then.
[2019-12-21] MEDS: CLONIDINE HCL 0.2 MG TABLET PO SCH (06:36)
[2019-12-21] MEDS: INSULIN REG, HUMAN 100 UNIT/ML 3 ML VIAL (PYX) SUBCUT SCH ×4 (08:15→21:47)
[2019-12-21] MEDS: AMLODIPINE BESYLATE 10 MG TABLET PO SCH (09:02)
[2019-12-21] MEDS: LOSARTAN POTASSIUM 50 MG TABLET PO SCH (09:02)
[2019-12-21] MEDS: DOCUSATE SODIUM 100 MG CAPSULE PO SCH (09:07)
[2019-12-21] MEDS: CALCITRIOL 0.25 MCG CAPSULE PO SCH (09:07)
[2019-12-21] MEDS: FUROSEMIDE 20 MG TABLET PO SCH (09:07)
[2019-12-21] MEDS: SEVELAMER HCL 800 MG TABLET PO SCH ×3 (09:07→16:12)
--- NOTE | 2019-12-21 11:05 | PDOC PROGRESS REPORT ---
Subjective Progress Note for:: 12/21/19 Subjective:: Feels better, no cough or SOB Awaiting dialysis chair Reason For Visit: CKD 5,HYPERKALEMIA Physical Exam Vital Signs: Temp Pulse Resp BP Pulse Ox 98.4 F 80 16 106/67 97 12/21/19 07:38 12/21/19 07:38 12/21/19 07:38 12/21/19 07:38 12/21/19 07:38 Intake & Output 12/20/19 12/21/19 12/22/19 06:59 06:59 06:59 Intake Total 1580 1179 Output Total 2110 3000 Balance -530 -1821 Weight 112.4 kg 110.5 kg General appearance: PRESENT: no acute distress, obese, well-nourished Head exam: PRESENT: atraumatic Eye exam: PRESENT: conjunctiva pink, EOMI, PERRLA. ABSENT: scleral icterus Neck exam: ABSENT: carotid bruit, JVD, lymphadenopathy, thyromegaly Respiratory exam: PRESENT: clear to auscultation kay, unlabored. ABSENT: rales, rhonchi, tachypnea, wheezes Cardiovascular exam: PRESENT: RRR, +S1, +S2. ABSENT: diastolic murmur, rubs, systolic murmur Pulses: PRESENT: normal dorsalis pedis pul Vascular exam: PRESENT: normal capillary refill GI/Abdominal exam: PRESENT: normal bowel sounds, soft. ABSENT: distended, guarding, mass, organolmegaly, rebound, tenderness Rectal exam: PRESENT: deferred Extremities exam: PRESENT: full ROM. ABSENT: calf tenderness, clubbing, pedal edema Neurological exam: PRESENT: alert, awake, oriented to person, oriented to place, oriented to time, oriented to situation, CN II-XII grossly intact. ABSENT: motor sensory deficit Psychiatric exam: PRESENT: appropriate affect, normal mood. ABSENT: homicidal ideation, suicidal ideation Skin exam: PRESENT: dry, intact, warm. ABSENT: cyanosis, rash Results Laboratory Results: 12/20/19 04:20 12/20/19 04:20 Impressions: Guidance Fluoroscopy 12/19/19 00:00 IMPRESSION: IMAGE(S) OBTAINED DURING PROCEDURE. Chest X-Ray 12/20/19 07:01 IMPRESSION: Right-sided central venous dialysis catheter tip in the superior vena cava. No pneumothorax Assessment and Plan - Diagnosis (1) End stage renal disease Is this a current diagnosis for this admission?: Yes (2) Hypertension Is this a current diagnosis for this admission?: Yes Plan: Patient is now hypotensive.borderline and so his medications are being adjusted (3) Uncontrolled type 2 diabetes mellitus Qualifiers: Glycemic state: with hyperglycemia Qualified Code(s): E11.65 - Type 2 diabetes mellitus with hyperglycemia Is this a current diagnosis for this admission?: Yes - Plan Summary Summary: Patient had ultrasound directed insertion of permacath. Patient is being monitored and remains hemodynamically stable. 12/19, he remains hemodynamically stable. There is no dialysis chair available yet so he will have to stay in hospital until then. 12/20 patient is hemodynamically stable. There is no dizziness or difficulty breathing. His blood pressure was noted to be low borderline hypotensive. He had been pretty much poorly controlled up to this point. His medications have been held or adjusted as of this moment and will continue to monitor weight. Patient at this point he is actually now medically cleared to be discharged due to his fluctuating blood pressure - Time Time Spent with patient: 15-24 minutes Anticipated discharge: Home Within: within 48 hours
[2019-12-21] MEDS ORDERED: CLONIDINE HCL 0.2 MG TABLET PO SCH (14:00)
[2019-12-21] MEDS: CLONIDINE HCL 0.1 MG TABLET PO SCH ×2 (14:08→21:48)
[2019-12-21] MEDS: TRAMADOL HCL 50 MG TABLET PO PRN (16:13)
[2019-12-22] MEDS: CLONIDINE HCL 0.1 MG TABLET PO SCH ×3 (06:41→21:55)
[2019-12-22] MEDS: INSULIN REG, HUMAN 100 UNIT/ML 3 ML VIAL (PYX) SUBCUT SCH ×4 (07:03→21:55)
[2019-12-22] MEDS: SEVELAMER HCL 800 MG TABLET PO SCH ×3 (07:59→16:31)
[2019-12-22] MEDS ORDERED: AMLODIPINE BESYLATE 10 MG TABLET PO SCH (10:00)
[2019-12-22] MEDS: AMLODIPINE BESYLATE 5 MG TABLET PO SCH (10:22)
[2019-12-22] MEDS: LOSARTAN POTASSIUM 50 MG TABLET PO SCH (10:22)
[2019-12-22] MEDS: CALCITRIOL 0.25 MCG CAPSULE PO SCH (10:22)
[2019-12-22] MEDS: DOCUSATE SODIUM 100 MG CAPSULE PO SCH (10:22)
[2019-12-22] MEDS: FUROSEMIDE 20 MG TABLET PO SCH (10:22)
[2019-12-22] MEDS: HYDROXYZINE PAMOATE 25 MG CAPSULE PO PRN (10:26)
--- NOTE | 2019-12-22 11:04 | PDOC PROGRESS REPORT ---
Subjective Progress Note for:: 12/22/19 Subjective:: Feels better, no cough or SOB Awaiting dialysis chair hopefully available in am c/o itching today Reason For Visit: CKD 5,HYPERKALEMIA Physical Exam Vital Signs: Temp Pulse Resp BP Pulse Ox 98.3 F 76 16 142/85 H 100 12/22/19 06:53 12/22/19 07:00 12/22/19 06:53 12/22/19 06:53 12/22/19 06:53 Intake & Output 12/21/19 12/22/19 12/23/19 06:59 06:59 06:59 Intake Total 1179 1270 Output Total 3000 950 Balance -1821 320 Weight 110.5 kg 110.2 kg General appearance: PRESENT: no acute distress, obese, well-developed, well- nourished Head exam: PRESENT: atraumatic, normocephalic Eye exam: PRESENT: conjunctiva pink, EOMI, PERRLA. ABSENT: scleral icterus Mouth exam: PRESENT: tongue midline Neck exam: ABSENT: carotid bruit, JVD, lymphadenopathy, thyromegaly Respiratory exam: PRESENT: clear to auscultation kay, unlabored. ABSENT: rales, rhonchi, wheezes Cardiovascular exam: PRESENT: RRR, +S1, +S2. ABSENT: diastolic murmur, rubs, systolic murmur Pulses: PRESENT: normal dorsalis pedis pul Vascular exam: PRESENT: normal capillary refill GI/Abdominal exam: PRESENT: normal bowel sounds, soft. ABSENT: distended, guarding, mass, organolmegaly, rebound, tenderness Rectal exam: PRESENT: deferred Extremities exam: PRESENT: full ROM. ABSENT: calf tenderness, clubbing, pedal edema Neurological exam: PRESENT: alert, awake, oriented to person, oriented to place, oriented to time, oriented to situation, CN II-XII grossly intact. ABSENT: motor sensory deficit Psychiatric exam: PRESENT: appropriate affect, normal mood. ABSENT: homicidal ideation, suicidal ideation Skin exam: PRESENT: dry, intact, rash, warm. ABSENT: cyanosis Results Laboratory Results: 12/20/19 04:20 12/20/19 04:20 Impressions: Guidance Fluoroscopy 12/19/19 00:00 IMPRESSION: IMAGE(S) OBTAINED DURING PROCEDURE. Chest X-Ray 12/20/19 07:01 IMPRESSION: Right-sided central venous dialysis catheter tip in the superior vena cava. No pneumothorax Assessment and Plan - Diagnosis (1) End stage renal disease Is this a current diagnosis for this admission?: Yes (2) Hypertension Is this a current diagnosis for this admission?: Yes (3) Uncontrolled type 2 diabetes mellitus Qualifiers: Glycemic state: with hyperglycemia Qualified Code(s): E11.65 - Type 2 diabetes mellitus with hyperglycemia Is this a current diagnosis for this admission?: Yes - Plan Summary Summary: Patient had ultrasound directed insertion of permacath. Patient is being monitored and remains hemodynamically stable. 12/19, he remains hemodynamically stable. There is no dialysis chair available yet so he will have to stay in hospital until then. 12/20 patient is hemodynamically stable. There is no dizziness or difficulty breathing. His blood pressure was noted to be low borderline hypotensive. He had been pretty much poorly controlled up to this point. His medications have been held or adjusted as of this moment and will continue to monitor weight. Patient at this point he is actually now medically cleared to be discharged due to his fluctuating blood pressure 12/21 blood pressures improved today. His medications were adjusted yesterday. Also and requested that he gets his hydroxyzine for itching. Plan is still to discharge him tomorrow if dialysis support is available Check labs in a.m.
[2019-12-23] MEDS: HYDROXYZINE PAMOATE 25 MG CAPSULE PO PRN ×4 (02:03→20:53)
[2019-12-23 04:56] LABS: ABSOLUTE BASOPHILS # (AUTO) 0.1 10^3/uL (0.0-0.2); ABSOLUTE EOSINOPHILS # (AUTO) 0.7 10^3/uL (0.0-0.6); ABSOLUTE LYMPHOCYTES (AUTO) 2.7 10^3/uL (0.5-4.7); ABSOLUTE MONOCYTES (AUTO) 1.2 10^3/uL (0.1-1.4); ABSOLUTE NEUT (AUTO) 7.8 10^3/uL (1.7-8.2); BASOPHILS % (AUTO) 0.9 % (0-2); HEMATOCRIT 32.8 % (37.9-51.0); HEMOGLOBIN 11.1 g/dL (13.5-17.0); LYMPHOCYTES % (AUTO) 21.8 % (13-45); MEAN CORPUSCULAR HEMOGLOBIN 28.6 pg (27.0-33.4); MEAN CORPUSCULAR VOLUME 84 fl (80-97); MONOCYTES % (AUTO) 9.4 % (3-13); PLATELET COUNT 246 10^3/uL (150-450); RED BLOOD COUNT 3.89 10^6/uL (4.35-5.55); RED CELL DISTRIBUTION WIDTH 13.3 % (11.5-14.0); SEGMENTED NEUTROPHILS % (AUTO) 61.9 % (42-78); TOTAL CELLS COUNTED % (AUTO) 100 %; WHITE BLOOD COUNT 12.5 10^3/uL (4.0-10.5)
[2019-12-23] MEDS ORDERED: HEPARIN SOD (PORCINE) 1,000 UNIT/ML 10 ML VIAL IV PRN (05:00)
[2019-12-23 05:20] LABS: BLOOD UREA NITROGEN 76 mg/dL (7-20); CALCIUM 9.6 mg/dL (8.4-10.2); CARBON DIOXIDE 19 mmol/L (22-30); CHLORIDE 96 mmol/L (98-107); GLUCOSE 107 mg/dL (75-110); POTASSIUM 4.3 mmol/L (3.6-5.0)
[2019-12-23 05:25] LABS: ANION GAP 20 (5-19)
[2019-12-23] MEDS: CLONIDINE HCL 0.1 MG TABLET PO SCH ×3 (06:02→22:54)
[2019-12-23] MEDS: TRAMADOL HCL 50 MG TABLET PO PRN ×2 (06:21→20:50)
[2019-12-23] MEDS: INSULIN REG, HUMAN 100 UNIT/ML 3 ML VIAL (PYX) SUBCUT SCH ×3 (10:22→16:53)
[2019-12-23] MEDS: SEVELAMER HCL 800 MG TABLET PO SCH ×3 (10:23→17:30)
[2019-12-23] MEDS: AMLODIPINE BESYLATE 5 MG TABLET PO SCH (10:29)
[2019-12-23] MEDS: FUROSEMIDE 20 MG TABLET PO SCH (10:29)
[2019-12-23] MEDS: LOSARTAN POTASSIUM 50 MG TABLET PO SCH (10:29)
[2019-12-23] MEDS: CALCITRIOL 0.25 MCG CAPSULE PO SCH (10:29)
[2019-12-23] MEDS: DOCUSATE SODIUM 100 MG CAPSULE PO SCH (10:29)
--- NOTE | 2019-12-23 11:44 | PDOC PROGRESS REPORT ---
Subjective Progress Note for:: 12/23/19 Reason For Visit: Patient seen today on dialysis. Undergoing dialysis without any issues. Patient waiting for orders at [facility] to start out patient dialysis. Labs and medications were reviewed. Dialysis orders were reviewed with the treating dialysis nurse. Physical Exam Vital Signs: Temp Pulse Resp BP Pulse Ox 98.2 F 78 18 141/93 H 98 12/23/19 04:40 12/23/19 07:00 12/23/19 04:40 12/23/19 04:40 12/23/19 04:40 Intake & Output 12/22/19 12/23/19 12/24/19 06:59 06:59 06:59 Intake Total 1270 1080 Output Total 950 1300 Balance 320 -220 Weight 110.2 kg 109.7 kg General appearance: PRESENT: no acute distress Respiratory exam: PRESENT: clear to auscultation kay. ABSENT: crackles Cardiovascular exam: PRESENT: +S1, +S2 GI/Abdominal exam: PRESENT: normal bowel sounds, soft. ABSENT: organomegaly, tenderness Extremities exam: ABSENT: pedal edema Neurological exam: PRESENT: alert, awake, oriented to person, oriented to place Psychiatric exam: PRESENT: appropriate affect Results Laboratory Results: 12/23/19 03:55 12/23/19 03:55 12/23/19 12/23/19 03:55 03:55 WBC 12.5 H RBC 3.89 L Hgb 11.1 L Hct 32.8 L MCV 84 MCH 28.6 MCHC 34.0 RDW 13.3 Plt Count 246 Seg Neutrophils % 61.9 Sodium 135.8 L Potassium 4.3 Chloride 96 L Carbon Dioxide 19 L Anion Gap 20 H BUN 76 H Creatinine 8.71 H Est GFR ( Amer) 8 L Glucose 107 Calcium 9.6 Impressions: Guidance Fluoroscopy 12/19/19 00:00 IMPRESSION: IMAGE(S) OBTAINED DURING PROCEDURE. Chest X-Ray 12/20/19 07:01 IMPRESSION: Right-sided central venous dialysis catheter tip in the superior vena cava. No pneumothorax Assessment & Plan - Diagnosis (1) End stage renal disease Is this a current diagnosis for this admission?: Yes Plan: Patient seen on dialysis today. Undergoing dialysis without any issues. Dialysis being supervised to ensure safe and smooth procedure. Vital signs are stable. Dialysis orders were reviewed with the treating dialysis nurse. He can be discharged home anytime after OP orders are ready at [facility]. He plans to continue outpatient dialysis at the [facility] unit with [facility]. Discharge planning in hospital to coordinate the above. (2) Diabetes mellitus type 2 in nonobese Is this a current diagnosis for this admission?: Yes Plan: As per hospitalist. (3) Hypertension Is this a current diagnosis for this admission?: Yes Plan: Controlled. Monitor.
--- NOTE | 2019-12-23 19:26 | PDOC PROGRESS REPORT ---
Subjective Progress Note for:: 12/23/19 Subjective:: Feels better, no cough or SOB Awaiting dialysis chair hopefully available in am Reason For Visit: CKD 5,HYPERKALEMIA Physical Exam Vital Signs: Temp Pulse Resp BP Pulse Ox 98.5 F 81 16 113/75 94 12/23/19 11:18 12/23/19 14:00 12/23/19 12:39 12/23/19 11:18 12/23/19 12:39 Intake & Output 12/22/19 12/23/19 12/24/19 06:59 06:59 06:59 Intake Total 1270 1080 120 Output Total 950 1300 Balance 320 -220 120 Weight 110.2 kg 109.7 kg General appearance: PRESENT: no acute distress, well-developed, well-nourished Head exam: PRESENT: atraumatic, normocephalic Eye exam: PRESENT: conjunctiva pink, EOMI, PERRLA. ABSENT: scleral icterus Ear exam: PRESENT: normal external ear exam Mouth exam: PRESENT: moist, tongue midline Neck exam: ABSENT: carotid bruit, JVD, lymphadenopathy, thyromegaly Respiratory exam: PRESENT: clear to auscultation kay. ABSENT: rales, rhonchi, wheezes Cardiovascular exam: PRESENT: RRR. ABSENT: diastolic murmur, rubs, systolic murmur Pulses: PRESENT: normal dorsalis pedis pul Vascular exam: PRESENT: normal capillary refill GI/Abdominal exam: PRESENT: normal bowel sounds, soft. ABSENT: distended, guarding, mass, organolmegaly, rebound, tenderness Rectal exam: PRESENT: deferred Extremities exam: PRESENT: full ROM. ABSENT: calf tenderness, clubbing, pedal edema Neurological exam: PRESENT: alert, awake, oriented to person, oriented to place, oriented to time, oriented to situation, CN II-XII grossly intact. ABSENT: motor sensory deficit Psychiatric exam: PRESENT: appropriate affect, normal mood. ABSENT: homicidal ideation, suicidal ideation Skin exam: PRESENT: dry, intact, warm. ABSENT: cyanosis, rash Results Laboratory Results: 12/23/19 03:55 12/23/19 03:55 12/23/19 12/23/19 03:55 03:55 WBC 12.5 H RBC 3.89 L Hgb 11.1 L Hct 32.8 L MCV 84 MCH 28.6 MCHC 34.0 RDW 13.3 Plt Count 246 Seg Neutrophils % 61.9 Sodium 135.8 L Potassium 4.3 Chloride 96 L Carbon Dioxide 19 L Anion Gap 20 H BUN 76 H Creatinine 8.71 H Est GFR ( Amer) 8 L Glucose 107 Calcium 9.6 Impressions: Guidance Fluoroscopy 12/19/19 00:00 IMPRESSION: IMAGE(S) OBTAINED DURING PROCEDURE. Chest X-Ray 12/20/19 07:01 IMPRESSION: Right-sided central venous dialysis catheter tip in the superior vena cava. No pneumothorax Assessment and Plan - Diagnosis (1) End stage renal disease Is this a current diagnosis for this admission?: Yes (2) Hypertension Is this a current diagnosis for this admission?: Yes (3) Uncontrolled type 2 diabetes mellitus Qualifiers: Glycemic state: with hyperglycemia Qualified Code(s): E11.65 - Type 2 diabetes mellitus with hyperglycemia Is this a current diagnosis for this admission?: Yes - Plan Summary Summary: Patient had ultrasound directed insertion of permacath. Patient is being monitored and remains hemodynamically stable. 12/19, he remains hemodynamically stable. There is no dialysis chair available yet so he will have to stay in hospital until then. 12/20 patient is hemodynamically stable. There is no dizziness or difficulty breathing. His blood pressure was noted to be low borderline hypotensive. He had been pretty much poorly controlled up to this point. His medications have been held or adjusted as of this moment and will continue to monitor weight. Patient at this point he is actually now medically cleared to be discharged due to his fluctuating blood pressure 12/21 blood pressures improved today. His medications were adjusted yesterday. Also and requested that he gets his hydroxyzine for itching. Plan is still to discharge him tomorrow if dialysis support is available Check labs in a.m. 12/22 Patient was dialyzed today. We are still awaiting a dialysis port and such pat lalit is still waiting in hospital. He can be discharged once a dialysis chair is available
[2019-12-24] MEDS: INSULIN REG, HUMAN 100 UNIT/ML 3 ML VIAL (PYX) SUBCUT SCH ×4 (05:02→17:52)
[2019-12-24] MEDS: CLONIDINE HCL 0.1 MG TABLET PO SCH ×2 (06:34→13:22)
[2019-12-24] MEDS: HYDROXYZINE PAMOATE 25 MG CAPSULE PO PRN (06:35)
[2019-12-24] MEDS: TRAMADOL HCL 50 MG TABLET PO PRN (06:36)
[2019-12-24] MEDS: DOCUSATE SODIUM 100 MG CAPSULE PO SCH (09:16)
[2019-12-24] MEDS: SEVELAMER HCL 800 MG TABLET PO SCH ×2 (09:16→11:32)
[2019-12-24] MEDS: CALCITRIOL 0.25 MCG CAPSULE PO SCH (09:16)
[2019-12-24] MEDS: FUROSEMIDE 20 MG TABLET PO SCH (09:16)
[2019-12-24] MEDS: LOSARTAN POTASSIUM 50 MG TABLET PO SCH (09:16)
[2019-12-24] MEDS: AMLODIPINE BESYLATE 5 MG TABLET PO SCH (09:16)
--- NOTE | 2019-12-24 14:23 | PDOC PROGRESS REPORT ---
Subjective Progress Note for:: 12/24/19 Subjective:: No adverse events overnight. No new complaints. Vital signs been stable. Blood pressures fairly well controlled. He is awaiting confirmation of an outpatient dialysis bed. Reason For Visit: CKD 5,HYPERKALEMIA Physical Exam Vital Signs: Temp Pulse Resp BP Pulse Ox 97.9 F 86 18 139/84 H 98 12/24/19 11:20 12/24/19 11:20 12/24/19 11:20 12/24/19 11:20 12/24/19 11:20 Intake & Output 12/23/19 12/24/19 12/25/19 06:59 06:59 06:59 Intake Total 1080 760 Output Total 1300 200 Balance -220 560 Weight 109.7 kg 109.6 kg 109.6 kg General appearance: PRESENT: no acute distress, cooperative, disheveled, morbid ly obese Respiratory exam: PRESENT: clear to auscultation kay, symmetrical, unlabored. ABSENT: accessory muscle use, chest wall tenderness, crackles, prolonged expiratory phas, retraction, rhonchi, tachypnea, wheezes Cardiovascular exam: PRESENT: RRR, +S1, +S2 Pulses: PRESENT: normal carotid pulses Vascular exam: PRESENT: normal capillary refill GI/Abdominal exam: PRESENT: normal bowel sounds, soft. ABSENT: distended, guarding, rebound, tenderness Extremities exam: ABSENT: clubbing, pedal edema Musculoskeletal exam: PRESENT: normal inspection. ABSENT: deformity Neurological exam: PRESENT: alert, awake, oriented to person, oriented to place, oriented to situation Psychiatric exam: PRESENT: flat affect Skin exam: PRESENT: dry, warm Results Laboratory Results: 12/23/19 03:55 12/23/19 03:55 Impressions: Guidance Fluoroscopy 12/19/19 00:00 IMPRESSION: IMAGE(S) OBTAINED DURING PROCEDURE. Chest X-Ray 12/20/19 07:01 IMPRESSION: Right-sided central venous dialysis catheter tip in the superior vena cava. No pneumothorax Assessment and Plan - Diagnosis (1) Anemia in chronic kidney disease Qualifiers: Chronic kidney disease stage: on chronic dialysis Qualified Code(s): N18.6 - End stage renal disease; D63.1 - Anemia in chronic kidney disease; Z99.2 - Dependence on renal dialysis Is this a current diagnosis for this admission?: Yes Plan: Stable, will get EPO as an outpatient as needed (2) Chronic kidney disease-mineral and bone disorder Is this a current diagnosis for this admission?: Yes Plan: Monitoring electrolytes, supplementation as needed (3) End stage renal disease Is this a current diagnosis for this admission?: Yes Plan: Now on chronic hemodialysis, awaiting confirmation of an outpatient dialysis bed (4) Metabolic acidosis Is this a current diagnosis for this admission?: Yes Plan: Resolved - Plan Summary Summary: Patient had ultrasound directed insertion of permacath. Patient is being monitored and remains hemodynamically stable. 12/19, he remains hemodynamically stable. There is no dialysis chair available yet so he will have to stay in hospital until then. 12/20 patient is hemodynamically stable. There is no dizziness or difficulty breathing. His blood pressure was noted to be low borderline hypotensive. He had been pretty much poorly controlled up to this point. His medications have b een held or adjusted as of this moment and will continue to monitor weight. Patient at this point he is actually now medically cleared to be discharged due to his fluctuating blood pressure 12/21 blood pressures improved today. His medications were adjusted yesterday. Also and requested that he gets his hydroxyzine for itching. Plan is still to discharge him tomorrow if dialysis support is available Check labs in a.m. 12/22 Patient was dialyzed today. We are still awaiting a dialysis port and such patient is still waiting in hospital. He can be discharged once a dialysis chair is available - Time Time Spent with patient: 15-24 minutes
[2019-12-24 17:41] VITALS: BP 147/90
--- NOTE | 2019-12-24 18:07 | PDOC DISCHARGE SUMMARY ---
Impression - Admit/DC Date/PCP Admission Date/Primary Care Provider: 12/17/19 13:07 Suzy ROBERSON MD Discharge Date: 12/24/19 - Discharge Diagnosis (1) Anemia in chronic kidney disease Is this a current diagnosis for this admission?: Yes (2) Chronic kidney disease-mineral and bone disorder Is this a current diagnosis for this admission?: Yes (3) End stage renal disease Is this a current diagnosis for this admission?: Yes (4) Metabolic acidosis Is this a current diagnosis for this admission?: Yes - Assessment Summary: Patient had ultrasound directed insertion of permacath. Patient is being monitored and remains hemodynamically stable. 12/19, he remains hemodynamically stable. There is no dialysis chair available yet so he will have to stay in hospital until then. 12/20 patient is hemodynamically stable. There is no dizziness or difficulty breathing. His blood pressure was noted to be low borderline hypotensive. He had been pretty much poorly controlled up to this point. His medications have been held or adjusted as of this moment and will continue to monitor weight. Patient at this point he is actually now medically cleared to be discharged due to his fluctuating blood pressure 12/21 blood pressures improved today. His medications were adjusted yesterday. Also and requested that he gets his hydroxyzine for itching. Plan is still to discharge him tomorrow if dialysis support is available Check labs in a.m. 12/22 Patient was dialyzed today. We are still awaiting a dialysis port and such patient is still waiting in hospital. He can be discharged once a dialysis chair is available - Additional Information Resuscitation Status: Full Code Discharge Diet: Diabetic Discharge Activity: Activity As Tolerated, Balance Activity w/Rest Referrals: Suzy ROBERSON MD [Primary Care Provider] - (Patient is a dialysis patient. Will be seen at [facility] on dialysis day.) Prescriptions: Clonidine HCl [Catapres 0.1 mg Tablet] 0.1 mg PO Q8 #90 tablet Amlodipine Besylate [Norvasc 5 mg Tablet] 5 mg PO DAILY #30 tablet Sevelamer HCl [Renagel 800 mg Tablet] 800 mg PO MEALS #90 tablet Home Medications: Losartan Potassium [Cozaar 50 mg Tablet] 50 mg PO DAILY 30 Days #30 tablet 09/20/18 Calcitriol [Rocaltrol 0.5 mcg Capsule] 0.5 mcg PO DAILY 12/17/19 Furosemide [Lasix 20 mg Tablet] 20 mg PO DAILY 12/17/19 Glipizide [Glucotrol 5 mg Tablet] 10 mg PO BID 12/17/19 Amlodipine Besylate [Norvasc 5 mg Tablet] 5 mg PO DAILY #30 tablet 12/24/19 Clonidine HCl [Catapres 0.1 mg Tablet] 0.1 mg PO Q8 #90 tablet 12/24/19 Sevelamer HCl [Renagel 800 mg Tablet] 800 mg PO MEALS #90 tablet 12/24/19 History of Present Illiness History of Present Illness: ISA LINDQUIST is a 44 year old male sent to the hospital for direct admission due to kidney failure. Patient has been having progressive worsening of his kidney function. His creatinine is essentially doubled in the last 6 months going from 3.85 in May to 7.32 on December 14. Has been getting acidotic with CO2 of about 17. Potassium is 5.1 on 315. He still has urine output He denies any chest pain. He was seen in the emergency room on December 14 apparently for possible encephalopathy as he was confused. Patient was advised to follow-up with his primary care physician after further evaluation. He was sent back today as he apparently has been having possible intermittent episodes Hospital Course Hospital Course: He had a dialysis catheter placed and has received couple dialysis treatments. He had improvement in his volume status and his metabolic status. He required less blood pressure medications and he has been provided prescriptions for the new dosages for his amlodipine and his clonidine. He was also started on sevelamer. We kept him here until a dialysis chair time could be arranged. We got confirmation of that this evening he was discharged home in stable condition. Physical Exam Vital Signs: Temp Pulse Resp BP Pulse Ox 97.7 F 44 L 18 147/90 H 100 12/24/19 17:10 12/24/19 17:10 12/24/19 17:10 12/24/19 17:10 12/24/19 17:10 Intake & Output 12/23/19 12/24/19 12/25/19 06:59 06:59 06:59 Intake Total 1080 760 700 Output Total 1300 200 300 Balance -220 560 400 Weight 109.7 kg 109.6 kg 109.6 kg General appearance: PRESENT: no acute distress, cooperative, disheveled, morbidly obese Respiratory exam: PRESENT: clear to auscultation kay, symmetrical, unlabored. ABSENT: accessory muscle use, chest wall tenderness, crackles, prolonged expiratory phas, retraction, rhonchi, tachypnea, wheezes Cardiovascular exam: PRESENT: RRR, +S1, +S2 Pulses: PRESENT: normal carotid pulses Vascular exam: PRESENT: normal capillary refill GI/Abdominal exam: PRESENT: normal bowel sounds, soft. ABSENT: distended, guarding, rebound, tenderness Extremities exam: ABSENT: clubbing, pedal edema Musculoskeletal exam: PRESENT: normal inspection. ABSENT: deformity Neurological exam: PRESENT: alert, awake, oriented to person, oriented to place, oriented to situation Psychiatric exam: PRESENT: flat affect Skin exam: PRESENT: dry, warm Results Laboratory Results: WBC 12.5 10^3/uL (4.0-10.5) H 12/23/19 03:55 RBC 3.89 10^6/uL (4.35-5.55) L 12/23/19 03:55 Hgb 11.1 g/dL (13.5-17.0) L 12/23/19 03:55 Hct 32.8 % (37.9-51.0) L 12/23/19 03:55 MCV 84 fl (80-97) 12/23/19 03:55 MCH 28.6 pg (27.0-33.4) 12/23/19 03:55 MCHC 34.0 g/dL (32.0-36.0) 12/23/19 03:55 RDW 13.3 % (11.5-14.0) 12/23/19 03:55 Plt Count 246 10^3/uL (150-450) 12/23/19 03:55 Lymph % (Auto) 21.8 % (13-45) 12/23/19 03:55 Mcpherson % (Auto) 9.4 % (3-13) 12/23/19 03:55 Eos % (Auto) 6.0 % (0-6) 12/23/19 03:55 Baso % (Auto) 0.9 % (0-2) 12/23/19 03:55 Absolute Neuts (auto) 7.8 10^3/uL (1.7-8.2) 12/23/19 03:55 Absolute Lymphs (auto) 2.7 10^3/uL (0.5-4.7) 12/23/19 03:55 Absolute Monos (auto) 1.2 10^3/uL (0.1-1.4) 12/23/19 03:55 Absolute Eos (auto) 0.7 10^3/uL (0.0-0.6) H 12/23/19 03:55 Absolute Basos (auto) 0.1 10^3/uL (0.0-0.2) 12/23/19 03:55 Seg Neutrophils % 61.9 % (42-78) 12/23/19 03:55 PT 13.0 SEC (11.4-15.4) 12/17/19 14:52 INR 0.98 12/17/19 14:52 Sodium 135.8 mmol/L (137-145) L 12/23/19 03:55 Potassium 4.3 mmol/L (3.6-5.0) 12/23/19 03:55 Chloride 96 mmol/L (98-107) L 12/23/19 03:55 Carbon Dioxide 19 mmol/L (22-30) L 12/23/19 03:55 Anion Gap 20 (5-19) H 12/23/19 03:55 BUN 76 mg/dL (7-20) H 12/23/19 03:55 Creatinine 8.71 mg/dL (0.52-1.25) H 12/23/19 03:55 Est GFR ( Amer) 8 (>60) L 12/23/19 03:55 Est GFR (MDRD) Non-Af 7 (>60) L 12/23/19 03:55 Glucose 107 mg/dL (75-110) 12/23/19 03:55 POC Glucose 127 mg/dL (70-110) H 12/24/19 17:10 Calcium 9.6 mg/dL (8.4-10.2) 12/23/19 03:55 Phosphorus 7.9 mg/dL (2.5-4.5) H 12/18/19 04:02 Hep Bs Antigen Negative (Negative) 12/17/19 16:00 Hep Bs Antibody, Quant <3.1 mIU/mL (Immunity>9) L 12/17/19 16:00 Hep B Core Total Ab Negative (Negative) 12/17/19 16:00 Impressions: Chest X-Ray 12/17/19 14:46 IMPRESSION: NO ACUTE RADIOGRAPHIC FINDING IN THE CHEST. Guidance Fluoroscopy 12/19/19 00:00 IMPRESSION: IMAGE(S) OBTAINED DURING PROCEDURE. Chest X-Ray 12/19/19 11:28 IMPRESSION: Good position of central line. No pneumothorax. Chest X-Ray 12/20/19 07:01 IMPRESSION: Right-sided central venous dialysis catheter tip in the superior vena cava. No pneumothorax Plan Time Spent: Greater than 30 Minutes Stroke Is this a Stroke Patient?: No Acute Heart Failure - Is this a Heart Failure Patient?: No
[2019-12-25] MEDS ORDERED: HEPARIN SOD (PORCINE) 1,000 UNIT/ML 10 ML VIAL IV PRN (05:00)
== END 2019-12-24 19:29 | disposition home or self-care (01) | DRG 291 ==
LOC: 3W 13:07
PROVIDERS: ADMIT Internal Medicine; ATTEND Family Medicine
PROC: 06HY33Z Insertion of Infusion Device into Lower Vein, Percutaneous Approach (ICD-10-PCS; 2019-12-17)
PROC: 5A1D70Z Performance of Urinary Filtration, Intermittent, Less than 6 Hours Per Day (ICD-10-PCS; 2019-12-18)
PROC: B518ZZA Fluoroscopy of Superior Vena Cava, Guidance (ICD-10-PCS; 2019-12-19)
PROC: B548ZZA Ultrasonography of Superior Vena Cava, Guidance (ICD-10-PCS; 2019-12-19)
PROC: 02HV33Z Insertion of Infusion Device into Superior Vena Cava, Percutaneous Approach (ICD-10-PCS; principal; 2019-12-19 09:00)
DX: I13.2 Hypertensive heart and chronic kidney disease with heart failure and with stage 5 chronic kidney disease, or end stage renal disease (principal); N18.6 End stage renal disease; E87.2 Acidosis; I50.32 Chronic diastolic (congestive) heart failure; E87.5 Hyperkalemia; D63.1 Anemia in chronic kidney disease; E83.9 Disorder of mineral metabolism, unspecified; E66.01 Morbid (severe) obesity due to excess calories; E78.5 Hyperlipidemia, unspecified; E11.22 Type 2 diabetes mellitus with diabetic chronic kidney disease; E11.65 Type 2 diabetes mellitus with hyperglycemia; Z79.899 Other long term (current) drug therapy; Z87.891 Personal history of nicotine dependence; Z88.0 Allergy status to penicillin; Z99.2 Dependence on renal dialysis
CPT/HCPCS: 36415; 532; 71045; 77001; 80048; 82962; 84100; 85025; 85610; 86317; 86704; 87340; 87522; C1713; C1752; J1642; J1644; J1815; J2250; J2704; J3010; J3490; S0119

== ENCOUNTER 2020-01-15 08:02 | Day surgery (SDC) | payer MEDICAID, OTHER ==
[~2020-01-15 08:02] MED LIST: CEFAZOLIN 1 GM/D5W RTU 1 GM/50 ML RTUPB IV PRN
[2020-01-15] MEDS ORDERED: CEFAZOLIN 1 GM/D5W RTU 0 GM/0 ML RTUPB IV ONE (08:17)
[2020-01-15] MEDS ORDERED: CLINDAMYCIN 600 MG/D5W RTU 600 MG/50 ML RTUPB IV ONE (08:20)
[2020-01-15 08:49] LABS: HEMATOCRIT 32.1 % (37.9-51.0); HEMOGLOBIN 11.1 g/dL (13.5-17.0); MEAN CORPUSCULAR HEMOGLOBIN 29.8 pg (27.0-33.4); MEAN CORPUSCULAR HGB CONC 34.6 g/dL (32.0-36.0); MEAN CORPUSCULAR VOLUME 86 fl (80-97); PLATELET COUNT 321 10^3/uL (150-450); RED BLOOD COUNT 3.73 10^6/uL (4.35-5.55); RED CELL DISTRIBUTION WIDTH 13.8 % (11.5-14.0); WHITE BLOOD COUNT 10.9 10^3/uL (4.0-10.5)
[2020-01-15] MEDS ORDERED: CLINDAMYCIN 600 MG/D5W RTU 600 MG/50 ML RTUPB IV PRN (09:05)
[2020-01-15 09:07] LABS: ANION GAP 14 (5-19); BLOOD UREA NITROGEN 57 mg/dL (7-20); CALCIUM 10.1 mg/dL (8.4-10.2); CARBON DIOXIDE 22 mmol/L (22-30); CHLORIDE 101 mmol/L (98-107); GLUCOSE 132 mg/dL (75-110); POTASSIUM 4.7 mmol/L (3.6-5.0)
[2020-01-15] MEDS ORDERED: LIDOCAINE 1%/EPINEPHRINE INJ 20 ML VIAL ONE (09:40)
[2020-01-15] MEDS ORDERED: FENTANYL CITRATE INJ/PF 100 MCG/2 ML AMPUL ONE ×2 (10:50→12:42)
[2020-01-15] MEDS ORDERED: MIDAZOLAM 2 MG/2 ML INJ ONE (10:50)
[2020-01-15] MEDS ORDERED: EPHEDRINE SULFATE INJ 50 MG/1 ML AMPULE ONE (10:51)
[2020-01-15] MEDS ORDERED: PROPOFOL 1,000 MG/100 ML INFUS..BTL IV ONE (10:51)
[2020-01-15] MEDS ORDERED: PROPOFOL INJ 200 MG/20 ML VIAL IV ONE (10:52)
[2020-01-15] MEDS ORDERED: HEPARIN SOD (PORCINE) 1,000 UNIT/ML 1 ML VIAL ONE (12:00)
[2020-01-15] MEDS ORDERED: FENTANYL CITRATE INJ/PF 100 MCG/2 ML AMPUL IV PRN ×3 (12:05)
[2020-01-15] MEDS ORDERED: DIPHENHYDRAMINE HCL 50 MG/ML VIAL IV PRN (12:05)
[2020-01-15] MEDS ORDERED: OXYCODONE-ACETAMINOPHEN 5-325 MG TABLET PO PRN ×2 (12:05)
[2020-01-15] MEDS ORDERED: PROMETHAZINE HCL INJ 25 MG/1 ML VIAL IV PRN ×2 (12:05)
[2020-01-15] MEDS ORDERED: MEPERIDINE HCL/PF INJ 25 MG/1 ML DISP.SYRIN IV PRN (12:05)
--- NOTE | 2020-01-15 12:41 | Operative Report ---
Nonrecallable Operative Report DATE OF SURGERY: 01/15/20 PREOPERATIVE DIAGNOSIS: malfunctioning permcath POSTOPERATIVE DIAGNOSIS: malfunctioning permcath OPERATION: permcath replacement SURGEON: MARILOU MANCINI ANESTHESIA: Moderate Sedation TISSUE REMOVED OR ALTERED: none COMPLICATIONS: none ESTIMATED BLOOD LOSS: 5cc INTRAOPERATIVE FINDINGS: see note PROCEDURE: Procedure note;. Patient was brought to the operating room awake alert stable condition placed in the operative table supine position and given IV sedation. After appropriate timeout site verification the procedure commenced. The right neck and chest were prepped and draped in usual sterile manner. The previously placed PermCath was also prepped into the field. the venous port was accessed on the permacath that was in place and we withdrew blood easily there was no obstruction to blood flow as there was no obstruction to blood flow on the arterial side. However because the dialysis center reported intermittent flow obstruction it was elected to remove this permacath and place a new one. The J-wire was placed in through the arterial side and confirmed in good position in the superior vena cava on fluoroscopy. The catheter was then slowly withdrawn over the wire and out of the wound. A 32 cm catheter was then placed over the wire and back into the same tract with the tip confirmed in the superior vena cava on fluoroscopy. The previous catheter was a 28 cm catheter. After removing the wire and checking the flow it seemed the venous side was intermittently obstructing so I pulled the catheter back somewhat and got good flow. I then performed a venogram through the venous side using contrast and noted that the catheter was in the right atrium however it still intermittently obstructed on withdrawal. Therefore obtained a new 28 cm catheter removed the 32 cm catheter over the wire and over the same wire we placed 1/28 cm catheter however I placed the cuff further up at the level of the clavicle instead of the level of the exit site. This gave an additional 2 cm to the length of the catheter. I then checked another venogram and noted that the catheter was in good position with in a fairly dilated portion of the superior to vena cava The catheter easily easily withdrew and flushed heparinized saline solution. The catheter was then fixed to the chest wall skin with 2-0 nylon suture. A sterile dressing was applied which completed the procedure Estimated blood loss was less than 5 cc sponge needle counts were correct x2 the patient was transferred recovery in stable condition
--- NOTE | 2020-01-15 12:43 | Discharge Summary ---
Discharge Summary (SDC) - Discharge Final Diagnosis: malfuntioning permcath Date of Surgery: 01/15/20 Discharge Date: 01/15/20 Condition: Good Treatment or Instructions: f/u with dialysis center. Discharge Diet: As Tolerated Discharge Activity: Activity As Tolerated Report the Following to Your Physician Immediately: Shortness of Breath, Unusual Bleeding - needs f/u with me in 7-10 days.
[2020-01-15 14:21] VITALS: BP 148/102
--- NOTE | 2020-01-15 15:56 | RADIOLOGY REPORT (SQ) ---
EXAM DESCRIPTION: CHEST SINGLE VIEW; FLUORO/CV PLACEMENT IMAGES COMPLETED DATE/TIME: 01/15/2020 3:48 pm REASON FOR STUDY: RIGHT SIDED PERM CATH N18.6 END STAGE RENAL DISEASE COMPARISON: None. FLUOROSCOPY TIME: 1.7 minutes Spot images saved to PACS. TECHNIQUE: Intra-operative images acquired during surgical procedure to evaluate progress. NUMBER OF IMAGES: 5 LIMITATIONS: None. FINDINGS: Fluoroscopy was provided for intraoperative procedure. Please refer to the operative repo rt for further discussion. IMPRESSION: IMAGE(S) OBTAINED DURING PROCEDURE. COMMENT: Quality ID 145: Final reports for procedures using fluoroscopy that document radiation exp osure indices, or exposure time and number of fluorographic images (if radiation exposure indices are not available) Please consult full operative report of the attending physician for description of the procedure. TECHNICAL DOCUMENTATION: JOB ID: [id number] 2010 [employer]- All Rights Reserved Reading location - IP/workstation name: [email or web address]
--- NOTE | 2020-01-15 15:56 | RADIOLOGY REPORT (SQ) ---
EXAM DESCRIPTION: CHEST SINGLE VIEW; FLUORO/CV PLACEMENT IMAGES COMPLETED DATE/TIME: 01/15/2020 3:48 pm REASON FOR STUDY: RIGHT SIDED PERM CATH N18.6 END STAGE RENAL DISEASE COMPARISON: None. FLUOROSCOPY TIME: 1.7 minutes Spot images saved to PACS. TECHNIQUE: Intra-operative images acquired during surgical procedure to evaluate progress. NUMBER OF IMAGES: 5 LIMITATIONS: None. FINDINGS: Fluoroscopy was provided for intraoperative procedure. Please refer to the operative repo rt for further discussion. IMPRESSION: IMAGE(S) OBTAINED DURING PROCEDURE. COMMENT: Quality ID [id number]: Final reports for procedures using fluoroscopy that document radiation exp osure indices, or exposure time and number of fluorographic images (if radiation exposure indices are not available) Please consult full operative report of the attending physician for description of the procedure. TECHNICAL DOCUMENTATION: JOB ID: [id number] 2010 [employer]- All Rights Reserved Reading location - IP/workstation name: [email or web address]
== END 2020-01-15 14:20 | disposition home or self-care (01) ==
LOC: OROUT 08:02
PROVIDERS: ATTEND Surgery
DX: T82.49XA Other complication of vascular dialysis catheter, initial encounter (principal); Y84.6 Urinary catheterization as the cause of abnormal reaction of the patient, or of later complication, without mention of misadventure at the time of the procedure; E11.22 Type 2 diabetes mellitus with diabetic chronic kidney disease; I12.0 Hypertensive chronic kidney disease with stage 5 chronic kidney disease or end stage renal disease; N18.6 End stage renal disease; Z99.2 Dependence on renal dialysis; Z88.0 Allergy status to penicillin; Z79.4 Long term (current) use of insulin; Z79.84 Long term (current) use of oral hypoglycemic drugs
CPT/HCPCS: 36415; 82962; 85027; 80048; 71045; 77001; 00532; 36581; C1713; Q9967; J2250; S0077; J3010; J2704 ×2; J1644; J1642; 532; J0690; J3490

== ENCOUNTER → 2020-03-03 | Outpatient (CLI) | payer MEDICAID ==
--- NOTE | 2020-03-03 12:40 | RADIOLOGY REPORT (SQ) ---
EXAM DESCRIPTION: MRI HEAD COMBO IMAGES COMPLETED DATE/TIME: 03/03/2020 11:16 am REASON FOR STUDY: CYST OF BRAIN (G93.0) G93.0 CEREBRAL CYSTS COMPARISON: CT brain 09/17/2019 TECHNIQUE: Multiplanar imaging includes noncontrasted T1, T2, FLAIR, diffusion with ADC map and post gadolinium contrast T1 sequences. Images stored on PACS. CONTRAST TYPE AND DOSE: 10 mL Dotarem. RENAL FUNCTION: Not indicated. ACR Type II contrast agent associated with few, if any, unconfounded cases of NSF LIMITATIONS: None. FINDINGS: ANATOMY: 9 mm cyst is present in the right frontal subcortical white matter on axial imag e 22 and 23. No surrounding gliosis. No enhancement. No mass effect. No hemorrhage. No feeding o r draining vessels. This most likely represents a benign enlarged perivascular space, and is unchang ed from CT brain 09/17/2019. CSF SPACES: Normal in size and contour. No hemorrhage. CEREBRUM: No acute ischemic change. No evidence of hemorrhage, mass, or extraaxial fluid collection. No abnormal enhancement post contrast. POSTERIOR FOSSA: No signal alteration. No hemorrhage. No edema, masses, or mass effect. Internal tavon tory canals, cerebellopontine angles, mastoids normal. No enhancing lesions. No abnormal enhancement post contrast. DIFFUSION IMAGING: Negative for acute or subacute infarction. ORBITS: No masses. Globes normal. PARANASAL SINUSES: No fluid levels. Mucosa normal. OTHER: No other significant finding. IMPRESSION: Benign-appearing 9 mm cyst in the right frontal subcortical white matter, likely an enla rged perivascular space. OTHERWISE UNREMARKABLE MRI OF THE BRAIN WITHOUT AND WITH INTRAVENOUS GADOLINIUM CONTRAST. EVIDENCE OF ACUTE STROKE: NO. TECHNICAL DOCUMENTATION: JOB ID: [id number] 2010 [employer]- All Rights Reserved Reading location - IP/workstation name: [email or web address]
== END ==
LOC: RAD 10:10
PROVIDERS: ATTEND Nurse Practitioner
DX: G93.0 Cerebral cysts (principal)
CPT/HCPCS: 70553; A9576